=== PATIENT | female | born 1945 | race Caucasian/White ===

== ENCOUNTER → 2018-02-15 16:21 | Outpatient (CLI) | payer MEDICARE, SELFPAY ==
--- NOTE | 2018-02-15 17:03 | RAD_ITS ---
STUDY: X-RAY - LUMBAR SPINE REASON FOR EXAM: Female, 73 years old. Back pain TECHNIQUE: 3 view(s) of the lumbar spine were obtained. COMPARISON: None FINDINGS: Normal lumbar lordosis. There is no substantial scoliosis. There is a normal alignment of the vertebrae. There is bilateral facet arthropathy. There is multilevel endplate spondylosis of the lumbar vertebrae. There is multi-level degenerative disc disease with multi-level disc space narrowing. There are atherosclerotic vascular calcifications. The soft tissue structures are unremarkable. RAD/Lumbar Spine 2 or 3 Views IMPRESSION: Degenerative changes of the spine, as detailed above. Electronically Signed: Andrés De La Torre MD at 18:30 EDT , Service support ,
--- NOTE | 2018-02-15 17:03 | RAD_ITS ---
STUDY: X-RAY - THORACIC SPINE REASON FOR EXAM: Female, 73 years old. Back pain TECHNIQUE: 4 view(s) of the thoracic spine were obtained. COMPARISON: None. FINDINGS: Normal kyphosis of the thoracic spine. There is no substantial scoliosis. There is multilevel endplate spondylosis of the thoracic vertebrae. There is multilevel disc space narrowing of the thoracic spine. The soft tissue structures are unremarkable. RAD/Thoracic Spine 2 Views IMPRESSION: There are degenerative changes as noted above. Electronically Signed: Andrés De La Torre MD at 18:29 EDT , Service support ,
[2018-02-15 17:04] LABS: Absolute Lymphocyte Count 3.92 X10^3/ul (0.83-4.51); Absolute Neutrophil Count 3.3 X10^3/uL (2.0-7.7); Basophil# 0.05 X10^3/uL; Basophil% 0.6 % (0-1); Eosinophil# 0.25 X10^3/uL; Eosinophils% 3.1 % (0-5); Hematocrit 37.3 % (37-47); Hemoglobin 12.6 g/dl (12.0-15.0); Lymphocyte # 3.92 X10^3/ul (4.0); Lymphocyte % 48.3 % (19-41); Mean Corp Hgb Conc 33.8 g/gl (32-36); Mean Corpuscular Hgb 31.3 pg (27.0-32.0); Mean Corpuscular Volume 92.8 fL (81-99); Mean Platelet Vol. 10.1 fl (6.2-12.0); Monocyte# 0.58 X10^3/uL; Monocyte% 7.1 % (0-10); Neutrophil % 40.7 % (47-70); Platelet Count 246 K/mm3 (150-450); RBC Distribution Width SD 43.2 fl (35.1-43.9); Red Blood Count 4.02 M/mm3 (4.2-5.4); White Blood Count 8.1 K/mm3 (4.4-11.0)
[2018-02-15 17:10] LABS: POSITIVE COUNT NO; POSITIVE DIFFERENTIAL NO; POSITIVE MORPHOLOGY NO
[2018-02-15 17:34] LABS: ALB/GLOB Ratio 0.9 RATIO (0.9-2.4); AST(SGOT) 21 U/L (15-37); Alanine Aminotransfer ALT/SGPT 23 U/L (13-56); Albumin, Serum 3.8 g/dL (3.2-5.0); Alkaline Phosphatase 53 U/L (45-117); Anion Gap 7 (5-15); BUN 33 mg/dL (7-18); BUN/Creat Ratio 30.3 RATIO (10-20); Calcium,Total 9.5 mg/dL (8.5-10.1); Chloride 105 mmol/L (98-107); Creatinine, Serum 1.09 mg/dL (0.55-1.02); EST Glomerular Filtration Rate 52 mL/min (>60); Est Glom Filt Rate - Afr Amer 63 mL/min (>60); Globulin 4.3 g/dL (2.2-4.2); Glucose 100 mg/dL (74-106); Potassium 4.2 mmol/L (3.5-5.1); Protein, Total 8.1 g/dL (6.4-8.2); Sodium Level 137 mmol/L (136-145); Thyroid Stim Hormone (TSH) 2.42 uIU/mL (0.358-3.74)
[2018-02-16 10:03] LABS: Vitamin D,25 Hydroxy 16.9 ng/mL (29.95-100.01)
== END ==
PROVIDERS: Family Provider Family Medicine Geriatric Medicine; PCP Family Medicine Geriatric Medicine; Visit Provider Family Medicine Geriatric Medicine
DX: R53.83 Other fatigue (principal); E55.9 Vitamin D deficiency, unspecified; M48.061 Spinal stenosis, lumbar region without neurogenic claudication; M54.6 Pain in thoracic spine
CPT/HCPCS: 36415; 72070; 72100; 80053; 82306; 84443; 85025

== ENCOUNTER 2018-04-04 08:02 | Day surgery (SDC) | payer MEDICARE, SELFPAY ==
[2018-04-04 08:27] VITALS: BP 131/55; PULSE 72; RESP 14; TEMP 36.8; O2SAT 95; BMI 43.9
[2018-04-04 09:15] VITALS: BP 131/55; BP 98/43; PULSE 64; RESP 18; TEMP 36.8; O2SAT 98
--- NOTE | 2018-04-04 09:15 | COLBX_PTH ---
PATIENT: MAHAMED SHANKS LOC: EN U#:[id number] AGE/SX: 73/F ROOM: RE04/04/[address]: Dr. Linda Mendes MD : 1945 BED: DIS: 04/04/2018 SPEC #: [id number] RECD: 04/04/18 11:47 STATUS: MAGUI REA #: [id number] JUNITO: 04/04/18 09:[address]: Linda Mendes DEPT: SURGICAL PATHOLOGY RECD BY: Sree Grajeda ENTERED: 04/04/18 13:06 SP TYPE: COLON BX OTHR DR: Dr. Steve Falcon MD Tissues: Sigmoid colon biopsy Procedures: Trichrome (control) Special Stain Group II Surgery Specimen Level IV HEADER OPERATION: Colonoscopy PRE-OP DIAGNOSIS: Screening TISSUE SUBMITTED: Sigmoid polyp biopsy MICROSCOPIC DIAGNOSIS Sigmoid polyp, biopsy: Fragments of colonic mucosa with focal changes consistent with collagenous colitis. Negative for adenomatous changes. See comment. SJ:marian 04/05/18 COMMENT Trichrome stain with matched control was used in the evaluation of this specimen and shows focal thickening of subepithelial collagen band. Case has been reviewed in consultation with Dr. Garcia who concurs with the above diagnosis. IDC:AM MICROSCOPIC DESCRIPTION Slides are reviewed. GROSS DESCRIPTION Received in fixative is one container labeled with the patient's name and designated sigmoid colon polyp. The specimen consists of multiple irregular fragments of light campa soft tissue that in aggregate measure 1 x 0.3 x 0.1 cm. The specimen is totally submitted in one cassette. / GUSTAVO:marian 04/04/18 TC:5 CPT: 49569, 93126
--- NOTE | 2018-04-04 09:18 | OP.PCM_ITS ---
Report of Operation Date of Procedure: 04/04/18 Pre-Operative Diagnosis: Screening for colon cancer, history of polyps, positive family history father at age 92, son at age 55 Post-Operative Diagnosis: Moderate sigmoid diverticulosis, sigmoid sessile polyp , grade 1 internal hemorrhoid Surgery/Procedure Performed:: Colonoscopy with biopsy Type of Anesthesia:: MAC Anesthesiologist: Nacho Moffett Specimen's removed: 1 sigmoid colon polyp Estimated Blood Loss (mL): Minimal Description of Procedure: Procedure: Colonoscopy After reviewing the risks benefits, the patient was deemed in satisfactory condition to undergo procedure. After obtaining informed consent, the scope was passed under direct visualization. Throughout the procedure, the patient's blood pressure pulse and position saturations were monitored continuously anesthesia. The colonoscope was introduced through the anus and advanced to the cecum, identified by the appendiceal orifice, IC valve and transillumination. The colonoscopy was performed without difficulty. The patient tolerated procedure well. Quality of bowel prep was good. Findings: The perianal and digital rectal exam revealed mild internal hemorrhoid There is a small sessile sigmoid colon polyp removed with cold forceps biopsies. There is also moderate diverticulosis of the sigmoid colon. Otherwise the colon (entire examined portion) appeared normal. Retroflexed view of the distal rectum and anal verge grade 1 internal hemorrhoids Impression: 1. Sessile sigmoid colon polyp. Removed completely 2. Diverticulosis of the sigmoid colon moderate 3. Grade 1 internal hemorrhoids Recommendations: Repeat colonoscopy in 3-5 years for screening purposes depending on biopsy - Complications none
[2018-04-04 09:20] VITALS: BP 131/55; BP 78/62; PULSE 59; RESP 18; O2SAT 97
[2018-04-04 09:25] VITALS: BP 115/58; BP 131/55; PULSE 61; RESP 18; O2SAT 97
[2018-04-04 09:30] VITALS: BP 110/62; BP 131/55; PULSE 60; RESP 18; TEMP 36.7; O2SAT 98
[2018-04-04 09:54] VITALS: BP 131/55
== END 2018-04-04 09:55 | disposition home or self-care (01) ==
LOC: EN 08:03 → AC 08:04
PROVIDERS: Family Provider Family Medicine Geriatric Medicine; PCP Family Medicine Geriatric Medicine; Visit Provider Surgery
PROC: 0DJD8ZZ Inspection of Lower Intestinal Tract, Via Natural or Artificial Opening Endoscopic (ICD-10-PCS; CPT 45378; principal; 2018-04-04 09:10)
DX: Z12.11 Encounter for screening for malignant neoplasm of colon (principal); K63.5 Polyp of colon; K57.30 Diverticulosis of large intestine without perforation or abscess without bleeding; K64.8 Other hemorrhoids; I10 Essential (primary) hypertension; Z78.0 Asymptomatic menopausal state; Z86.010 Personal history of colon polyps; Z84.89 Family history of other specified conditions
CPT/HCPCS: 45380; 88305; 88313; J7120

== ENCOUNTER → 2018-08-17 10:15 | Outpatient (CLI) | payer MEDICARE, SELFPAY ==
[2018-08-17 12:26] LABS: Absolute Lymphocyte Count 2.95 X10^3/ul (0.83-4.51); Absolute Neutrophil Count 3.6 X10^3/uL (2.0-7.7); Basophil# 0.05 X10^3/uL; Basophil% 0.7 % (0-1); Eosinophils% 2.7 % (0-5); Hematocrit 38.9 % (37-47); Hemoglobin 12.7 g/dl (12.0-15.0); Lymphocyte # 2.95 X10^3/ul (4.0); Lymphocyte % 39.1 % (19-41); Mean Corp Hgb Conc 32.6 g/gl (32-36); Mean Corpuscular Hgb 30.5 pg (27.0-32.0); Mean Corpuscular Volume 93.5 fL (81-99); Mean Platelet Vol. 10.4 fl (6.2-12.0); Monocyte# 0.75 X10^3/uL; Monocyte% 9.9 % (0-10); Neutrophil # 3.58 X10^3/uL (2.7-7.7); Neutrophil % 47.5 % (47-70); POSITIVE COUNT NO; POSITIVE DIFFERENTIAL NO; POSITIVE MORPHOLOGY NO; Platelet Count 268 K/mm3 (150-450); RBC Distribution Width CV 13.2 % (11.6-14.6); RBC Distribution Width SD 44.9 fl (35.1-43.9); Red Blood Count 4.16 M/mm3 (4.2-5.4); White Blood Count 7.5 K/mm3 (4.4-11.0)
[2018-08-17 12:44] LABS: Vitamin D,25 Hydroxy 29.2 ng/mL (29.95-100.01)
[2018-08-17 12:50] LABS: ALB/GLOB Ratio 0.9 RATIO (0.9-2.4); AST(SGOT) 19 U/L (15-37); Alanine Aminotransfer ALT/SGPT 27 U/L (13-56); Albumin, Serum 3.8 g/dL (3.2-5.0); Alkaline Phosphatase 64 U/L (45-117); Anion Gap 11 (5-15); BUN 28 mg/dL (7-18); BUN/Creat Ratio 25.9 RATIO (10-20); Calcium,Total 9.3 mg/dL (8.5-10.1); Chloride 105 mmol/L (98-107); Cholesterol 216 mg/dL (200); Creatinine, Serum 1.08 mg/dL (0.55-1.02); EST Glomerular Filtration Rate 53 mL/min (>60); Est Glom Filt Rate - Afr Amer 64 mL/min (>60); Globulin 4.3 g/dL (2.2-4.2); Glucose 95 mg/dL (74-106); High Density Lipoprotein 61 mg/dL; Potassium 4.2 mmol/L (3.5-5.1); Protein, Total 8.1 g/dL (6.4-8.2); Sodium Level 140 mmol/L (136-145); Triglycerides 85 mg/dL; Very Low Density Lipoprotein 17 mg/dL (5-40)
== END ==
PROVIDERS: Family Provider Family Medicine Geriatric Medicine; PCP Family Medicine Geriatric Medicine; Visit Provider Family Medicine Geriatric Medicine
DX: I10 Essential (primary) hypertension (principal); E78.49 Other hyperlipidemia; E55.9 Vitamin D deficiency, unspecified
CPT/HCPCS: 36415; 80053; 80061; 82306; 84443; 85025

== ENCOUNTER → 2018-11-22 12:10 | Outpatient (CLI) | payer MEDICARE, SELFPAY ==
--- NOTE | 2018-11-22 12:12 | BI_ITS ---
MAMMOGRAPHY - BILATERAL SCREENING REASON FOR EXAM: Female, 73 years old. Routine annual screening examination. PERTINENT HISTORY: Grandmother with breast cancer. Remote left breast biopsies. TECHNIQUE: Digital bilateral breast yolanda (3D mammographic acquisition) in the CC and MLO projections. 2-D mediolateral oblique (MLO) and craniocaudad (CC) views of both breasts were obtained. CAD: Full Field Digital Mammography with Computer Added Detection was performed. COMPARISON: Comparison is made with prior mammogram dated November 07, 2012. FINDINGS: Breast Composition: There are scattered areas of fibroglandular density. There are no dominant masses or suspicious calcifications. 2 tissue markers are seen in the upper outer quadrant of the left breast and compared with prior biopsy. No new mass lesion is seen. No other significant abnormalities are identified. There has been no significant change since the prior study. BI/SCREENING MAMM (CAD), BILAT IMPRESSION: Stable bilateral screening mammogram. Yearly follow-up mammogram recommended. (A) ASSESSMENT CATEGORY: BIRADS Category 2: Benign. A letter regarding these results will be sent to the patient by the facility within 30 days. Approximately 10% of breast cancers are not detected by mammography. A normal mammogram should not delay biopsy of a clinically suspicious abnormality. [id number] Electronically Signed: Jonny Juan, at 14:47 EDT , Service support ,
--- NOTE | 2018-11-22 12:18 | BD_ITS ---
STUDY: DUAL ENERGY X-RAY ABSORPTIOMETRY / DXA REASON FOR EXAM: Female, 73 years old. The patient is postmenopausal. Loss of height. TECHNIQUE: Bone Mineral Density (BMD) measurements of lumbar spine and bilateral hips were obtained. COMPARISON: None. FINDINGS: Lumbar Spine (L1-L4): g/cm2 (2.003) / T-score (7.0) / Z-score (8.7) Findings are suggestive of normal bone density with a low fracture risk. Left Femur Total: g/cm2 (1.206) / T-score (1.6) / Z-score (3.3) Left Femoral Neck: g/cm2 (1.045) / T-score (0.1) / Z-score (2.0) Right Femur Total: g/cm2 (1.212) / T-score (1.6) / Z-score (3.4) Right Femoral Neck: g/cm2 (1.145) / T-score (0.8) / Z-score (2.7) BD/Dexa Bone Density Study IMPRESSION: The patient is considered normal as outlined below according to World [employer] Organization (WHO) criteria with a low fracture risk. Reference Information: The T-score is the number of standard deviations above or below the standard which is normal for young adults at their peak bone mineral density. The World Health Organization (WHO) interprets the T-scores as follows: Above -1 Normal bone density Between -1 and -2.5 Osteopenia Equal to / or below -2.5 Osteoporosis As a practical clinical guideline, osteopenia may be graded as follows: Mild -1 through -1.5 Moderate -1.6 through -2.0 Severe -2.1 through -2.4 The Z-score is the number of standard deviations above or below age-matched controls. A Z-score of less than -1.5 would be considered abnormal. References: 1. NIH Osteoporosis and Related Bone Diseases http://www.osteo.org 2. International Society for Clinical Densitometry http://www.iscd.org 3. National Osteoporosis Foundation http://www.nof.org Electronically Signed: Jonny Juan, at 12:18 EDT , Service support ,
== END ==
PROVIDERS: Family Provider Family Medicine Geriatric Medicine; PCP Family Medicine Geriatric Medicine; Referring Provider Obstetrics & Gynecology; Visit Provider Obstetrics & Gynecology
DX: Z12.31 Encounter for screening mammogram for malignant neoplasm of breast (principal); Z78.0 Asymptomatic menopausal state; Z80.3 Family history of malignant neoplasm of breast
CPT/HCPCS: 77063; 77067; 77080

== ENCOUNTER → 2019-02-19 10:53 | Outpatient (CLI) | payer MEDICARE, SELFPAY ==
[2018-05-24 12:27] VITALS: BMI 43.8
[2019-02-19 12:43] LABS: Absolute Lymphocyte Count 3.21 X10^3/ul (0.83-4.51); Absolute Neutrophil Count 3.7 X10^3/uL (2.0-7.7); Basophil# 0.05 X10^3/uL; Basophil% 0.6 % (0-1); Eosinophil# 0.33 X10^3/uL; Eosinophils% 4.2 % (0-5); Hematocrit 35.6 % (37-47); Hemoglobin 11.9 g/dl (12.0-15.0); Lymphocyte # 3.21 X10^3/ul (4.0); Lymphocyte % 40.6 % (19-41); Mean Corp Hgb Conc 33.4 g/gl (32-36); Mean Corpuscular Hgb 30.4 pg (27.0-32.0); Mean Corpuscular Volume 90.8 fL (81-99); Monocyte# 0.58 X10^3/uL; Monocyte% 7.3 % (0-10); Neutrophil # 3.73 X10^3/uL (2.7-7.7); Neutrophil % 47.2 % (47-70); Platelet Count 263 K/mm3 (150-450); RBC Distribution Width CV 13.7 % (11.6-14.6); RBC Distribution Width SD 44.9 fl (35.1-43.9); Red Blood Count 3.92 M/mm3 (4.2-5.4); White Blood Count 7.9 K/mm3 (4.4-11.0)
[2019-02-19 12:45] LABS: POSITIVE COUNT NO; POSITIVE DIFFERENTIAL NO; POSITIVE MORPHOLOGY NO
[2019-02-19 13:01] LABS: Vitamin D,25 Hydroxy 26.2 ng/mL (29.95-100.01)
[2019-02-19 13:07] LABS: AST(SGOT) 20 U/L (15-37); Alanine Aminotransfer ALT/SGPT 28 U/L (13-56); Albumin, Serum 3.9 g/dL (3.2-5.0); Alkaline Phosphatase 67 U/L (45-117); Anion Gap 14 (5-15); BUN 44 mg/dL (7-18); BUN/Creat Ratio 38.6 RATIO (10-20); Calcium,Total 9.2 mg/dL (8.5-10.1); Chloride 105 mmol/L (98-107); Cholesterol 200 mg/dL (200); Creatinine, Serum 1.14 mg/dL (0.55-1.02); EST Glomerular Filtration Rate 49 mL/min (>60); Est Glom Filt Rate - Afr Amer 60 mL/min (>60); Globulin 4.1 g/dL (2.2-4.2); Glucose 110 mg/dL (74-106); High Density Lipoprotein 59 mg/dL; Potassium 4.3 mmol/L (3.5-5.1); Sodium Level 138 mmol/L (136-145); Thyroid Stim Hormone (TSH) 2.18 uIU/mL (0.358-3.74); Triglycerides 68 mg/dL; Very Low Density Lipoprotein 14 mg/dL (5-40)
== END ==
PROVIDERS: Family Provider Family Medicine Geriatric Medicine; PCP Family Medicine Geriatric Medicine; Visit Provider Family Medicine Geriatric Medicine
DX: I10 Essential (primary) hypertension (principal); E55.9 Vitamin D deficiency, unspecified; E78.5 Hyperlipidemia, unspecified
CPT/HCPCS: 36415; 80053; 80061; 82306; 84443; 85025

== ENCOUNTER → 2019-02-26 13:24 | Outpatient (CLI) | payer MEDICARE, SELFPAY ==
[2018-05-24 12:27] VITALS: BMI 43.8
--- NOTE | 2019-02-26 | LES_PTH ---
PATIENT: MAHAMED SHANKS LOC: [facility] U#:[id number] AGE/SX: 80/F ROOM: RE02/26/[address]: Dr. Steve Falcon MD : 1945 BED: DIS: SPEC #: [id number] RECD: 02/26/19 17:03 STATUS: MAGUI REA #: [id number] JUNITO: 02/26/19 00:[address]: Steve Falcon Chi DEPT: SURGICAL PATHOLOGY RECD BY: Preet Tyson Tissues: Skin of back, NOS Procedures: Surgery Specimen Level IV HEADER OPERATION: Not noted PRE-OP DIAGNOSIS: Lesion mid back TISSUE SUBMITTED: Lesion mid back MICROSCOPIC DIAGNOSIS Skin lesion of mid back, shave biopsy: Seborrheic keratosis with actinic change and mild chronic inflammation. See comment. AM:marian 03/01/19 COMMENT The lesion appears to have been completely excised in the planes examined. MICROSCOPIC DESCRIPTION Slides are reviewed. GROSS DESCRIPTION Received in fixative is one container labeled with the patient's name and designated mid back. The specimen consists of an irregular piece of campa-white to light brown skin measuring 1.5 x 0.7 x 0.2 cm. The specimen is inked and submitted entirely in one cassette. It will be sectioned at the time of embedding. / SJ:rg 02/27/19 TC:5 [facility]: [id number]
== END ==
PROVIDERS: Family Provider Family Medicine Geriatric Medicine; PCP Family Medicine Geriatric Medicine; Referring Provider Family Medicine Geriatric Medicine; Visit Provider Family Medicine Geriatric Medicine
DX: L98.9 Disorder of the skin and subcutaneous tissue, unspecified (principal)
CPT/HCPCS: 88305

== ENCOUNTER 2019-04-17 19:14 | Emergency (ER) | payer MEDICARE, SELFPAY ==
[2019-04-17 19:16] VITALS: BP 164/77; PULSE 65; RESP 17; TEMP 36.1; O2SAT 95; BMI 45.1
--- NOTE | 2019-04-17 19:35 | EKG12_ITS ---
Test Reason : DIZZINESS Blood Pressure : / mmHG Vent. Rate : 057 BPM Atrial Rate : 057 BPM P-R Int : 226 ms QRS Dur : 094 ms QT Int : 418 ms P-R-T Axes : 044 012 029 degrees QTc Int : 406 ms Sinus bradycardia with 1st degree A-V block Low voltage QRS Cannot rule out Anterior infarct (cited on or before 02-MAR-2001) Abnormal ECG Confirmed by AGATA RO ([id number]), electronic news gathering editor OMKAR MAIN ([id number]) on 04/22/2019 2:02:43 PM Referred By: QUETA Confirmed By:AGATA RO
--- NOTE | 2019-04-17 19:35 | CT_ITS ---
STUDY: CT BRAIN WITHOUT CONTRAST REASON FOR EXAM: Female, 74 years old. Vertigo RADIATION DOSAGE (If Supplied By Facility): CTDIvol = ( 44.99 ) mGy, DLP = ( 779.24 ) mGycm TECHNIQUE: Transaxial CT imaging of the brain was performed without administration of intravenous contrast material. Individualized dose optimization techniques were used for this CT. COMPARISON: No relevant priors. FINDINGS: Normal soft tissue structures. Normal calvarium. Bilateral lens replacements. Normal size ventricles and extra-axial spaces for the patient's age. There are areas of decreased attenuation within the white matter tracts of the supratentorial brain, consistent with microvascular disease changes. Normal age-related changes of the basal ganglia. Normal brainstem. Normal cerebellum. There is no intracranial hemorrhage. There are no findings of an acute ischemic infarction. Normal visualized paranasal sinuses. CT/Brain/Head without Contrast IMPRESSION: No CT evidence of acute infarct or hemorrhage. If there is clinical concern for hyperacute ischemia that is not evident by CT, MRI should be considered if possible. Electronically Signed: Chano Cedillo MD at 20:12 EDT Tel , Service support ,
[2019-04-17] MEDS: Meclizine HCl 25 MG Tablet PO (19:47)
[2019-04-17 19:51] LABS: Absolute Neutrophil Count 4.5 X10^3/uL (2.0-7.7); Basophil# 0.07 X10^3/uL; Basophil% 0.7 % (0-1); Eosinophil# 0.39 X10^3/uL; Eosinophils% 3.8 % (0-5); Hematocrit 36.3 % (37-47); Lymphocyte % 42.8 % (19-41); Mean Corp Hgb Conc 33.1 g/dL (32-36); Mean Corpuscular Hgb 30.9 pg (27.0-32.0); Mean Corpuscular Volume 93.6 fL (81-99); Mean Platelet Vol. 9.8 fl (6.2-12.0); Monocyte# 0.92 X10^3/uL; Monocyte% 8.9 % (0-10); NRBC Flagged by Analyzer 0 % (0-5); Neutrophil # 4.48 X10^3/uL (2.7-7.7); Neutrophil % 43.5 % (47-70); Platelet Count 256 K/mm3 (150-450); RBC Distribution Width CV 13.2 % (11.6-14.6); RBC Distribution Width SD 45.2 fl (35.1-43.9); Red Blood Count 3.88 M/mm3 (4.2-5.4); White Blood Count 10.3 K/mm3 (4.4-11.0)
[2019-04-17 20:05] LABS: Anion Gap 6 (5-15); BUN 33 mg/dL (7-18); BUN/Creat Ratio 28.7 RATIO (10-20); Calcium,Total 9.2 mg/dL (8.5-10.1); Chloride 107 mmol/L (98-107); Creatinine, Serum 1.15 mg/dL (0.55-1.02); EST Glomerular Filtration Rate 49 mL/min (>60); Est Glom Filt Rate - Afr Amer 59 mL/min (>60); Glucose 98 mg/dL (74-106); Potassium 4.3 mmol/L (3.5-5.1); Sodium Level 139 mmol/L (136-145)
--- NOTE | 2019-04-17 20:26 | ED.DCSUM_ITS ---
History of Present Illness Chief Complaint: Dizziness Past Medical History - Allergies and Home Meds Allergies/Adverse Reactions: Allergies latex Allergy (Verified 04/17/19 19:15) Hives Primary Care Physician: Steve Falcon Chi, MD [Primary Care Provider] - Smoking Status: Never smoker Physical Exam Vital Signs/Narrative: Vital Signs Temp Pulse Resp BP Pulse Ox 04/17/19 19:16 97 F L 65 17 164/77 H 95 Diagnostic/Tx/Re-eval - Medical Decision Making Dizziness with a history of vertigo. I am evaluating this patient with the resident. Patient complaint room spinning dizziness with a history of vertigo last episode was 13 years ago. She denies any headache. No other symptoms. Worse with head movement or trying to ambulate. Similar to her prior episodes. Older female no acute distress. Vital signs are stable afebrile. HEENT exam she is legally blind. No facial droop. Normal speech. Neck nontender. Lungs clear to auscultation. Heart regular rhythm no murmur. Abdomen soft and nontender. Moving all 4 extremities. Neurovascular intact. She is awake and alert. Normal speech. No facial droop. She does have a positive Hallpike with rotation of the head the left and her right she gets worsening symptoms. Screening labs and CT of her brain showed no benign positional vertigo a bnormality. Patient treated with Antivert. Symptoms persisted she was then given p.o. Valium and will be reassessed. Impression: #1 acute vertigo ED Disposition - Plan for ED Patient: Referrals: Steve Falcon Chi, MD [Primary Care Provider] -
[2019-04-17] MEDS: diazePAM 5 MG Tablet PO (20:29)
[2019-04-17 21:43] VITALS: BP 143/71; PULSE 61; RESP 18; O2SAT 99
--- NOTE | 2019-04-17 21:46 | ED.VISSUMM ---
ED Disposition - Plan for ED Patient: Disposition: Home or Assisted Living Diagnosis: Vertigo Instructions: Benign Positional Vertigo Prescriptions: Diazepam [Valium] 5 mg PO Q8H PRN PRN 5 Days #15 tab PRN Reason: Vertigo Prescription Printed Referrals: Steve Falcon Chi, MD [Primary Care Provider] -
== END 2019-04-17 21:56 | disposition home or self-care (01) ==
PROVIDERS: Emergency Provider Emergency Medicine; Family Provider Family Medicine Geriatric Medicine; PCP Family Medicine Geriatric Medicine
DX: H81.399 Other peripheral vertigo, unspecified ear (principal); H35.30 Unspecified macular degeneration; H54.8 Legal blindness, as defined in USA; I44.0 Atrioventricular block, first degree; Z91.040 Latex allergy status; Z79.899 Other long term (current) drug therapy
CPT/HCPCS: 70450; 80048; 85025; 93005; 99283; A4216

== ENCOUNTER → 2019-09-02 11:26 | Outpatient (CLI) | payer MEDICARE, SELFPAY ==
[2019-09-02 12:43] LABS: Absolute Lymphocyte Count 3.23 X10^3/uL (0.83-4.51); Absolute Neutrophil Count 4.1 X10^3/uL (2.0-7.7); Basophil# 0.06 X10^3/uL; Basophil% 0.7 % (0-1); Eosinophil# 0.21 X10^3/uL; Eosinophils% 2.5 % (0-5); Hematocrit 37.8 % (37-47); Hemoglobin 12.3 g/dL (12.0-15.0); Lymphocyte # 3.23 X10^3/ul (4.0); Lymphocyte % 39.2 % (19-41); Mean Corp Hgb Conc 32.5 g/dL (32-36); Mean Corpuscular Hgb 30.7 pg (27.0-32.0); Mean Corpuscular Volume 94.3 fL (81-99); Mean Platelet Vol. 10.5 fl (6.2-12.0); Monocyte# 0.65 X10^3/uL; Monocyte% 7.9 % (0-10); NRBC Flagged by Analyzer 0 % (0-5); Neutrophil # 4.06 X10^3/uL (2.7-7.7); Neutrophil % 49.3 % (47-70); Platelet Count 278 K/mm3 (150-450); RBC Distribution Width CV 13.2 % (11.6-14.6); RBC Distribution Width SD 45.8 fl (35.1-43.9); Red Blood Count 4.01 M/mm3 (4.2-5.4); White Blood Count 8.2 K/mm3 (4.4-11.0)
[2019-09-02 13:02] LABS: AST(SGOT) 21 U/L (15-37); Alanine Aminotransfer ALT/SGPT 27 U/L (13-56); Albumin, Serum 3.9 g/dL (3.2-5.0); Alkaline Phosphatase 67 U/L (45-117); Anion Gap 6 (5-15); BUN 34 mg/dL (7-18); BUN/Creat Ratio 30.6 RATIO (10-20); Chloride 108 mmol/L (98-107); Cholesterol 227 mg/dL (200); Creatinine, Serum 1.11 mg/dL (0.55-1.02); EST Glomerular Filtration Rate 51 mL/min (>60); Est Glom Filt Rate - Afr Amer 61 mL/min (>60); Glucose 115 mg/dL (74-106); High Density Lipoprotein 56 mg/dL; Potassium 4.4 mmol/L (3.5-5.1); Protein, Total 7.9 g/dL (6.4-8.2); Sodium Level 138 mmol/L (136-145); Thyroid Stim Hormone (TSH) 3.57 uIU/mL (0.358-3.74); Triglycerides 92 mg/dL; Very Low Density Lipoprotein 18 mg/dL (5-40)
[2019-09-02 13:05] LABS: Vitamin D,25 Hydroxy 35.7 ng/mL (29.95-100.01)
== END ==
PROVIDERS: Family Provider Family Medicine Geriatric Medicine; PCP Family Medicine Geriatric Medicine; Visit Provider Family Medicine Geriatric Medicine
DX: E55.9 Vitamin D deficiency, unspecified (principal); E78.5 Hyperlipidemia, unspecified; I10 Essential (primary) hypertension
CPT/HCPCS: 36415; 80053; 80061; 82306; 84443; 85025

== ENCOUNTER → 2019-09-18 10:35 | Outpatient (CLI) | payer MEDICARE, SELFPAY ==
--- NOTE | 2019-09-18 10:40 | RAD_ITS ---
STUDY: X-RAY - LEFT SHOULDER REASON FOR EXAM: Left shoulder pain, fall yesterday. TECHNIQUE: 4 view(s) of the shoulder. COMPARISON: None. FINDINGS: There are marginal osteophytes of the glenoid. The glenohumeral articulation appears centered on the scapular Y view. There is acromioclavicular arthrosis with undersurface osteophytes. Normal acromion. Normal humeral head and visualized proximal humerus. There are calcifications at the superior aspect of the humeral head, likely representing calcific tendinitis or calcific bursitis. Normal visualized pulmonary apex. RAD/Shoulder min 2 Views IMPRESSION: Calcifications of the superior aspect of the humeral head, likely representing calcific tendinitis or calcific bursitis. Acromioclavicular arthrosis. No demonstrated fracture. Electronically Signed: Bhanu Tejada MD at 15:51 EST Tel , Service support ,
--- NOTE | 2019-09-18 10:41 | RAD_ITS ---
STUDY: X-RAY - LEFT CLAVICLE REASON FOR EXAM: Left shoulder pain, fall yesterday. TECHNIQUE: 2 view(s) of the clavicle. COMPARISON: None. FINDINGS: Normal clavicle. There is arthrosis of the acromioclavicular articulation with undersurface osteophytes. Normal visualized sternoclavicular articulation. Normal visualized pulmonary apex. RAD/Clavicle IMPRESSION: Acromioclavicular arthrosis. No demonstrated clavicle fracture. Electronically Signed: Bhanu Tejada MD at 16:04 EST Tel , Service support ,
== END ==
PROVIDERS: PCP Family Medicine Geriatric Medicine; Referring Provider Family Medicine Geriatric Medicine; Visit Provider Family Medicine Geriatric Medicine
DX: M19.012 Primary osteoarthritis, left shoulder (principal)
CPT/HCPCS: 73000; 73030

== ENCOUNTER → 2020-03-19 10:07 | Outpatient (CLI) | payer MEDICARE, SELFPAY ==
[2020-03-19 09:54] VITALS: BMI 42.5
== END ==
PROVIDERS: PCP Family Medicine Geriatric Medicine; Referring Provider Chiropractor; Visit Provider Chiropractor
DX: M99.03 Segmental and somatic dysfunction of lumbar region (principal); M51.36 Other intervertebral disc degeneration, lumbar region
CPT/HCPCS: 72100

== ENCOUNTER → 2020-05-06 13:11 | Outpatient (CLI) | payer MEDICARE, SELFPAY ==
[2020-04-14 12:54] VITALS: BMI 43.6
--- NOTE | 2020-05-06 13:12 | BI_ITS ---
MAMMOGRAPHY - BILATERAL SCREENING REASON FOR EXAM: Female, 75 years old. Routine annual screening examination. PERTINENT HISTORY: Grandmother with breast cancer. TECHNIQUE: Digital bilateral breast bismark (3D mammographic acquisition) in the CC and MLO projections. 2-D mediolateral oblique (MLO) and craniocaudad (CC) views of both breasts were obtained. CAD: Full Field Digital Mammography with Computer Added Detection was performed. COMPARISON: Comparison is made with prior examination dated 11/22/2018 and 11/07/2012. FINDINGS: Breast Composition: There are scattered areas of fibroglandular density. There are no dominant masses or suspicious calcifications. Once again, there are 2 tissue markers in the axillary region of the left breast. Stable architectural distortion at that site. This is unchanged. No other significant abnormalities are identified. There has been no significant change since the prior study. BI/SCREEN MAMM (CAD) W/BISMARK BILAT IMPRESSION: Stable bilateral screening mammogram. Yearly follow-up mammogram recommended. (A) ASSESSMENT CATEGORY: BIRADS Category 2: Benign. A letter regarding these results will be sent to the patient by the facility within 30 days. Approximately 10% of breast cancers are not detected by mammography. A normal mammogram should not delay biopsy of a clinically suspicious abnormality. [id number] Electronically Signed: Jonny Juan, at 14:54 EDT , Service support ,
== END ==
PROVIDERS: PCP Family Medicine Geriatric Medicine; Referring Provider Nurse Practitioner Women's Health; Visit Provider Nurse Practitioner Women's Health
DX: Z12.31 Encounter for screening mammogram for malignant neoplasm of breast (principal)
CPT/HCPCS: 77063; 77067

== ENCOUNTER → 2020-09-10 11:47 | Outpatient (CLI) | payer MEDICARE, SELFPAY ==
[2020-04-14 12:54] VITALS: BMI 43.6
[2020-09-10 12:33] LABS: Absolute Lymphocyte Count 3.59 X10^3/uL (0.83-4.51); Absolute Neutrophil Count 5.2 X10^3/uL (2.0-7.7); Basophil# 0.07 X10^3/uL; Basophil% 0.7 % (0-1); Eosinophil# 0.18 X10^3/uL; Eosinophils% 1.9 % (0-5); Hematocrit 39.1 % (37-47); Hemoglobin 12.9 g/dL (12.0-15.0); Lymphocyte # 3.59 X10^3/ul (4.0); Mean Corpuscular Hgb 30.9 pg (27.0-32.0); Mean Corpuscular Volume 93.8 fL (81-99); Mean Platelet Vol. 10.3 fl (6.2-12.0); Monocyte# 0.65 X10^3/uL; Monocyte% 6.7 % (0-10); NRBC Flagged by Analyzer 0 % (0-5); Neutrophil # 5.18 X10^3/uL (2.7-7.7); Neutrophil % 53.4 % (47-70); Platelet Count 315 K/mm3 (150-450); RBC Distribution Width SD 44.6 fl (35.1-43.9); Red Blood Count 4.17 M/mm3 (4.2-5.4); White Blood Count 9.7 K/mm3 (4.4-11.0)
[2020-09-10 13:00] LABS: ALB/GLOB Ratio 0.9 RATIO (0.9-2.4); AST(SGOT) 21 U/L (15-37); Alanine Aminotransfer ALT/SGPT 29 U/L (13-56); Albumin, Serum 3.9 g/dL (3.2-5.0); Alkaline Phosphatase 74 U/L (45-117); Anion Gap 7 (5-15); BUN 26 mg/dL (7-18); BUN/Creat Ratio 23.9 RATIO (10-20); Calcium,Total 9.4 mg/dL (8.5-10.1); Chloride 105 mmol/L (98-107); Creatinine, Serum 1.09 mg/dL (0.55-1.02); EST Glomerular Filtration Rate 52 mL/min (>60); Est Glom Filt Rate - Afr Amer 63 mL/min (>60); Globulin 4.4 g/dL (2.2-4.2); Glucose 112 mg/dL (74-106); Potassium 4.6 mmol/L (3.5-5.1); Protein, Total 8.3 g/dL (6.4-8.2); Sodium Level 136 mmol/L (136-145); Thyroid Stim Hormone (TSH) 2.38 uIU/mL (0.358-3.74)
[2020-09-10 13:07] LABS: Vitamin D,25 Hydroxy 21.2 ng/mL
== END ==
PROVIDERS: PCP Family Medicine Geriatric Medicine; Visit Provider Family Medicine Geriatric Medicine
DX: I10 Essential (primary) hypertension (principal); E55.9 Vitamin D deficiency, unspecified
CPT/HCPCS: 36415; 80053; 82306; 84443; 85025

== ENCOUNTER 2020-10-29 11:00 | Outpatient (RCR) | payer MEDICARE, SELFPAY ==
[2020-04-14 12:54] VITALS: BMI 43.6
[2020-10-29] MEDS: COVID-19 VACC, MRNA(PFIZER)/PF 30 MCG/0.3 ML SYRINGE IM (08:46)
[2020-11-19] MEDS: COVID-19 VACC, MRNA(PFIZER)/PF 30 MCG/0.3 ML SYRINGE IM (08:22)
== END 2020-10-29 23:59 ==
LOC: IMMUN 11:00
PROVIDERS: PCP Family Medicine Geriatric Medicine; Referring Provider Family Medicine; Visit Provider Family Medicine
DX: Z23 Encounter for immunization (principal)
CPT/HCPCS: 0001A; 0002A

== ENCOUNTER → 2021-03-09 10:33 | Outpatient (CLI) | payer MEDICARE, SELFPAY ==
[2020-04-14 12:54] VITALS: BMI 43.6
[2021-03-09 12:36] LABS: Absolute Lymphocyte Count 3.93 X10^3/uL (0.83-4.51); Absolute Neutrophil Count 3.3 X10^3/uL (2.0-7.7); Basophil# 0.06 X10^3/uL; Basophil% 0.7 % (0-1); Eosinophil# 0.31 X10^3/uL; Eosinophils% 3.7 % (0-5); Hematocrit 37.8 % (37-47); Hemoglobin 12.4 g/dL (12.0-15.0); Lymphocyte # 3.93 X10^3/ul (0.83-4.51); Lymphocyte % 47.5 % (19-41); Mean Corp Hgb Conc 32.8 g/dL (32-36); Mean Corpuscular Hgb 31.2 pg (27.0-32.0); Mean Corpuscular Volume 95.2 fL (81-99); Mean Platelet Vol. 10.1 fl (6.2-12.0); Monocyte# 0.62 X10^3/uL; Monocyte% 7.5 % (0-10); NRBC Flagged by Analyzer 0 % (0-5); Neutrophil # 3.32 X10^3/uL (2.7-7.7); Neutrophil % 40.2 % (47-70); Platelet Count 308 K/mm3 (150-450); RBC Distribution Width CV 13.2 % (11.6-14.6); RBC Distribution Width SD 46.1 fl (35.1-43.9); Red Blood Count 3.97 M/mm3 (4.2-5.4); White Blood Count 8.3 K/mm3 (4.4-11.0)
[2021-03-09 13:06] LABS: Vitamin D,25 Hydroxy 30.6 ng/mL
[2021-03-09 14:15] LABS: AST(SGOT) 24 U/L (15-37); Alanine Aminotransfer ALT/SGPT 28 U/L (13-56); Alkaline Phosphatase 65 U/L (45-117); Anion Gap 8 (5-15); BUN 34 mg/dL (7-18); BUN/Creat Ratio 30.9 RATIO (10-20); Calcium,Total 9.8 mg/dL (8.5-10.1); Chloride 106 mmol/L (98-107); EST Glomerular Filtration Rate 51 mL/min (>60); Est Glom Filt Rate - Afr Amer 62 mL/min (>60); Globulin 4.2 g/dL (2.2-4.2); Glucose 102 mg/dL (74-106); Potassium 4.1 mmol/L (3.5-5.1); Protein, Total 8.2 g/dL (6.4-8.2); Sodium Level 137 mmol/L (136-145); Thyroid Stim Hormone (TSH) 2.51 uIU/mL (0.358-3.74)
== END ==
PROVIDERS: PCP Family Medicine Geriatric Medicine; Visit Provider Family Medicine Geriatric Medicine
DX: E55.9 Vitamin D deficiency, unspecified (principal); I10 Essential (primary) hypertension
CPT/HCPCS: 36415; 80053; 82306; 84443; 85025

== ENCOUNTER → 2021-03-16 | Outpatient (CLI) | payer MEDICARE, SELFPAY ==
[2020-04-14 12:54] VITALS: BMI 43.6
--- NOTE | 2021-03-16 | IMM_PTH ---
PATIENT: MAHAMED SHANKS LOC: [facility] U#:[id number] AGE/SX: 76/F ROOM: RE03/16/[address]: Dr. Steve Falcon MD : 1945 BED: DIS: 03/16/2021 SPEC #: [id number] RECD: 03/17/21 13:17 STATUS: MAGUI REQ #: [id number] JUNITO: 03/16/21 00:[address]: Steve Falcon Chi DEPT: IMMUNOHISTOCHEMISTRY RECD BY: Sera Garduno Tissues: B - Skin of arm Procedures: CK5-6 (initial) MELAN-A (add) P40 (add) S-100 (add) PHYSICIAN & INSTITUTION [place] [address] SPECIMEN INFORMATION: Tissue Source: B ? Right arm Clinical Info: Right arm lesion Specimen Number: [id number] CPT code: 01959, 57656 x3 METHODOLOGY: Deparaffinized sections of prefer/formalin-fixed tissue or PAP/DQ stained slides are incubated with monoclonal/polyclonal antibodies/oligonucleotide probes. Localization is made via biotin free immunoperoxidase method. Appropriate controls are performed and reacted as expected. Results on target cell population are indicated in the following table: RESULTS: ANTIBODY / CLONE RESULT Block B CK5-6 (D5 & 1684) positive P40 (BC28) positive S-100 (4C4.9) negative Melan A (A103) negative These tests were developed and their performance characteristics determined by [facility]. They may not have been cleared or approved by the U.S. Food and Drug Administration. The FDA has determined that such clearance or approval is not necessary. The above immunohistochemical/dualISH markers are ordered and reviewed by the Pathologist. INTERPRETATION: B. Skin of right arm, biopsy: Lichenoid dermal and interface chronic inflammation. Negative for malignancy. SJ:marian 03/18/2021
--- NOTE | 2021-03-16 | LES_PTH ---
PATIENT: MAHAMED SHANKS LOC: [facility] U#:[id number] AGE/SX: 76/F ROOM: RE03/16/[address]: Dr. Steve Falcon MD : 1945 BED: DIS: 03/16/2021 SPEC #: [id number] RECD: 03/16/21 13:05 STATUS: MAGUI RECayla #: [id number] JUNITO: 03/16/21 00:[address]: Steve Falcon Chi DEPT: SURGICAL PATHOLOGY RECD BY: Preet Tyson Tissues: A - Skin of arm B - Skin of arm C - Skin of back, NOS Procedures: Special Stain Group II Surgery Specimen Level IV Iron Stain (control) HEADER OPERATION: Skin biopsies PRE-OP DIAGNOSIS: Lesions TISSUE SUBMITTED: A ? Right arm, B ? Right arm, C - Back MICROSCOPIC DIAGNOSIS A. Right arm skin lesion, biopsy: Focal area of old hemorrhage, fibrosis and calcification. Solar elastosis. Negative for malignancy. See comment. B. Right arm skin lesion, biopsy: Dermal lichenoid and interface chronic inflammation. Mild actinic keratosis and solar elastosis. Hyperkeratosis. Negative for malignancy. See comment. C. Back lesion, biopsy: Intradermal nevus. SJ:rg 03/17/2021 COMMENT A. Iron stain with matched control is used in the evaluation of the specimen. B. Immunohistochemistry ([id number]) supports the above diagnosis. Special stain for fungi is negative for organism; matched control is appropriate. Inflammatory infiltrates predominantly consists of lymphocytes and a few eosinophils. Differential diagnosis includes non-specific chronic dermatitis, atopic dermatitis, or arthropod bile. Correlation with clinical findings and appropriate follow up are necessary. Case has been reviewed in consultation with Dr. Garcia who concurs with the above diagnosis. IDC:AM MICROSCOPIC DESCRIPTION Slides are reviewed. GROSS DESCRIPTION A - Received in fixative is one container labeled with the patient's name and designated right arm. The specimen consists of a piece of campa-white skin measuring 0.6 x 0.4 cm and 0.2 cm in thickness. A congested and hemorrhagic area is noted measuring 0.3 cm in greatest dimension. The specimen is inked and submitted entirely in one cassette. It will be sectioned at the time of embedding. B - Received in fixative is one container labeled with the patient's name and designated right arm. The specimen consists of a shave biopsy of campa-white skin measuring 0.9 x 0.9 x 0.1 cm. The specimen is inked and submitted entirely in one cassette. It will be sectioned at the time of embedding. C - Received in fixative is one container labeled with the patient's name and designated back. The specimen consists of a shave biopsy of campa-white skin measuring 1 x 0.5 x 0.1 cm. A campa lesion is noted on the surface measuring 0.5 x 0.5 cm. The specimen is inked and submitted entirely in one cassette. It will be sectioned at the time of embedding. / SJ:rg 03/16/21 TC:1 CPT: 05302 x3, 41778, 88301
== END | disposition home or self-care (01) ==
LOC: LABSPEC 11:33
PROVIDERS: PCP Family Medicine Geriatric Medicine; Visit Provider Family Medicine Geriatric Medicine
DX: D23.5 Other benign neoplasm of skin of trunk (principal); L57.8 Other skin changes due to chronic exposure to nonionizing radiation; L85.9 Epidermal thickening, unspecified
CPT/HCPCS: 88305; 88313; 88341; 88342

== ENCOUNTER → 2021-05-07 10:45 | Outpatient (CLI) | payer MEDICARE, SELFPAY ==
[2020-04-14 12:54] VITALS: BMI 43.6
--- NOTE | 2021-05-07 11:18 | BI_ITS ---
MAMMOGRAPHY - BILATERAL SCREENING REASON FOR EXAM: Female, 76 years old. Routine annual screening examination. PERTINENT HISTORY: Grandmother with breast cancer. TECHNIQUE: Digital bilateral breast bismark (3D mammographic acquisition) in the CC and MLO projections. 2-D mediolateral oblique (MLO) and craniocaudad (CC) views of both breasts were obtained. CAD: Full Field Digital Mammography with Computer Added Detection was performed. COMPARISON: Comparison is made with prior study dated 05/06/2020 and 11/22/2018. FINDINGS: Breast Composition: There are scattered areas of fibroglandular density. There are no dominant masses or suspicious calcifications. Once again, 2 tissue markers are seen in the axillary region of the left breast. Stable focal area of architectural distortion at the biopsy site. No other significant abnormalities are identified. There has been no significant change since the prior study. BI/SCRN MAMM (CAD)W/BISMARK BILAT IMPRESSION: Stable bilateral screening mammogram. Yearly follow-up mammogram recommended. (A) ASSESSMENT CATEGORY: BIRADS Category 2: Benign. A letter regarding these results will be sent to the patient by the facility within 30 days. Approximately 10% of breast cancers are not detected by mammography. A normal mammogram should not delay biopsy of a clinically suspicious abnormality. [id number] Electronically Signed: Jonny Juan MD at 12:25 EDT , Service support ,
== END ==
PROVIDERS: PCP Family Medicine Geriatric Medicine; Referring Provider Student in an Organized Health Care Education/Training Program; Visit Provider Student in an Organized Health Care Education/Training Program
DX: Z12.31 Encounter for screening mammogram for malignant neoplasm of breast (principal)
CPT/HCPCS: 77063; 77067

== ENCOUNTER 2021-10-12 15:56 | Outpatient (CLI) | payer MEDICARE, SELFPAY ==
[2021-10-12 16:22] LABS: Absolute Lymphocyte Count 3.22 X10^3/uL (0.83-4.51); Absolute Neutrophil Count 2.6 X10^3/uL (2.0-7.7); Basophil# 0.05 X10^3/uL; Basophil% 0.8 % (0-1); Eosinophil# 0.14 X10^3/uL; Eosinophils% 2.2 % (0-5); Hematocrit 36.4 % (37-47); Lymphocyte # 3.22 X10^3/ul (0.83-4.51); Lymphocyte % 49.9 % (19-41); Mean Corpuscular Hgb 31.3 pg (27.0-32.0); Mean Platelet Vol. 10.2 fl (6.2-12.0); Monocyte# 0.42 X10^3/uL; Monocyte% 6.5 % (0-10); NRBC Flagged by Analyzer 0 % (0-5); Neutrophil # 2.61 X10^3/uL (2.7-7.7); Neutrophil % 40.4 % (47-70); Platelet Count 237 K/mm3 (150-450); RBC Distribution Width CV 13.2 % (11.6-14.6); RBC Distribution Width SD 46.1 fl (35.1-43.9); Red Blood Count 3.83 M/mm3 (4.2-5.4); White Blood Count 6.5 K/mm3 (4.4-11.0)
[2021-10-12 16:43] LABS: Vitamin D,25 Hydroxy 32.1 ng/mL
[2021-10-12 16:51] LABS: ALB/GLOB Ratio 0.9 RATIO (0.9-2.4); AST(SGOT) 22 U/L (15-37); Alanine Aminotransfer ALT/SGPT 26 U/L (13-56); Albumin, Serum 3.9 g/dL (3.2-5.0); Alkaline Phosphatase 66 U/L (45-117); Anion Gap 6 (5-15); BUN 58 mg/dL (7-18); BUN/Creat Ratio 42.3 RATIO (10-20); Calcium,Total 9.7 mg/dL (8.5-10.1); Chloride 106 mmol/L (98-107); Creatinine, Serum 1.37 mg/dL (0.55-1.02); EST Glomerular Filtration Rate 40 mL/min (>60); Est Glom Filt Rate - Afr Amer 48 mL/min (>60); Globulin 4.2 g/dL (2.2-4.2); Glucose 101 mg/dL (74-106); Potassium 4.8 mmol/L (3.5-5.1); Protein, Total 8.1 g/dL (6.4-8.2); Sodium Level 135 mmol/L (136-145); Thyroid Stim Hormone (TSH) 3.62 uIU/mL (0.358-3.74)
== END 2021-10-12 23:59 | disposition home or self-care (01) ==
LOC: POLAB3 16:00
PROVIDERS: PCP Family Medicine Geriatric Medicine; Visit Provider Family Medicine Geriatric Medicine
DX: I10 Essential (primary) hypertension (principal); E55.9 Vitamin D deficiency, unspecified
CPT/HCPCS: 36415; 80053; 82306; 84443; 85025

== ENCOUNTER 2021-10-14 11:16 | Outpatient (CLI) | payer MEDICARE, SELFPAY | END 2021-10-14 23:59 | disposition home or self-care (01) | PROVIDERS: PCP Family Medicine Geriatric Medicine; Referring Provider Family Medicine Geriatric Medicine; Visit Provider Family Medicine Geriatric Medicine | DX: R68.83 Chills (without fever) (principal) | CPT/HCPCS: 87635; 87804; 87807; C9803; U0003; U0005 ==

== ENCOUNTER 2021-11-11 10:35 | Outpatient (CLI) | payer MEDICARE, SELFPAY ==
--- NOTE | 2021-11-11 10:39 | US_ITS ---
INDICATION: CKD 3 EXAMINATION: Ultrasound US Kidney(s) complete (eg, kidneys and bladder) TECHNIQUE: Dia scale and color doppler images were obtained of the kidneys. COMPARISON: None. FINDINGS: RIGHT KIDNEY: 9.3 x 6.2 x 4.3 cm and is within normal limits. Renal cortex measures 1.0 cm and is within normal limits. Duplicated right renal collecting system. Normal parenchyma. There is no hydronephrosis. No echogenic calculi. No cystic or solid masses. LEFT KIDNEY: 9.5 x 5.1 x 5.2 cm and is within normal limits. Renal cortex measures 0.9 cm and is within normal limits. Normal parenchyma. There is no hydronephrosis. No echogenic calculi. No cystic or solid masses. URINARY BLADDER: No acute abnormality. US/Kidney and Bladder IMPRESSION: Duplicated right renal collecting system. The remainder of the exam is unremarkable. Electronically Signed: Hakeem Beasley, at 11:52 EDT ,
== END 2021-11-11 23:59 | disposition home or self-care (01) ==
PROVIDERS: PCP Family Medicine Geriatric Medicine; Referring Provider Internal Medicine Nephrology; Visit Provider Internal Medicine Nephrology
DX: N18.32 Chronic kidney disease, stage 3b (principal)
CPT/HCPCS: 76770

== ENCOUNTER → 2022-01-04 | Outpatient (CLI) | payer MEDICARE, SELFPAY ==
[2022-01-04 17:23] LABS: Albumin, Serum 3.8 g/dL (3.2-5.0); BUN 27 mg/dL (7-18); BUN/Creat Ratio 24.8 RATIO (10-20); Calcium,Total 9.5 mg/dL (8.5-10.1); Chloride 108 mmol/L (98-107); Creatinine, Serum 1.09 mg/dL (0.55-1.02); EST Glomerular Filtration Rate 52 mL/min (>60); Est Glom Filt Rate - Afr Amer 62 mL/min (>60); Glucose 113 mg/dL (74-106); Phosphorus 3.5 mg/dL (2.5-4.9); Potassium 4.3 mmol/L (3.5-5.1); Sodium Level 139 mmol/L (136-145)
== END | disposition home or self-care (01) ==
LOC: POLAB3 13:08
PROVIDERS: PCP Family Medicine Geriatric Medicine; Visit Provider Internal Medicine Nephrology
DX: N18.32 Chronic kidney disease, stage 3b (principal)
CPT/HCPCS: 36415; 80069; 83970

== ENCOUNTER → 2022-03-16 | Outpatient (CLI) | payer MEDICARE, SELFPAY ==
[2022-03-16 16:18] LABS: Absolute Lymphocyte Count 5.05 X10^3/uL (0.83-4.51); Absolute Neutrophil Count 4.6 X10^3/uL (2.0-7.7); Basophil# 0.09 X10^3/uL; Basophil% 0.8 % (0-1); Eosinophil# 0.35 X10^3/uL; Eosinophils% 3.2 % (0-5); Hematocrit 36.4 % (37-47); Lymphocyte # 5.05 X10^3/ul (0.83-4.51); Lymphocyte % 46.5 % (19-41); Mean Corpuscular Hgb 31.6 pg (27.0-32.0); Mean Corpuscular Volume 95.8 fL (81-99); Monocyte# 0.75 X10^3/uL; Monocyte% 6.9 % (0-10); NRBC Flagged by Analyzer 0 % (0-5); Neutrophil # 4.61 X10^3/uL (2.7-7.7); Neutrophil % 42.4 % (47-70); POSITIVE DIFFERENTIAL YES; Platelet Count 278 K/mm3 (150-450); RBC Distribution Width CV 13.1 % (11.6-14.6); RBC Distribution Width SD 46.5 fl (35.1-43.9); White Blood Count 10.9 K/mm3 (4.4-11.0)
[2022-03-16 16:33] LABS: Vitamin D,25 Hydroxy 29.9 ng/mL
[2022-03-16 16:42] LABS: ALB/GLOB Ratio 0.9 RATIO (0.9-2.4); AST(SGOT) 25 U/L (15-37); Alanine Aminotransfer ALT/SGPT 32 U/L (13-56); Albumin, Serum 3.9 g/dL (3.2-5.0); Alkaline Phosphatase 62 U/L (45-117); Anion Gap 9 (5-15); BUN 38 mg/dL (7-18); BUN/Creat Ratio 35.8 RATIO (10-20); Calcium,Total 9.9 mg/dL (8.5-10.1); Chloride 104 mmol/L (98-107); Creatinine, Serum 1.06 mg/dL (0.55-1.02); EST Glomerular Filtration Rate 53 mL/min (>60); Est Glom Filt Rate - Afr Amer 64 mL/min (>60); Globulin 4.2 g/dL (2.2-4.2); Glucose 112 mg/dL (74-106); Potassium 4.1 mmol/L (3.5-5.1); Protein, Total 8.1 g/dL (6.4-8.2); Sodium Level 137 mmol/L (136-145); Thyroid Stim Hormone (TSH) 1.54 uIU/mL (0.358-3.74)
[2022-03-16 17:05] LABS: Differential Indicated SCAN CRITERIA MET
[2022-03-16 17:17] LABS: Differential Comment SCANNED
== END | disposition home or self-care (01) ==
LOC: POLAB3 14:55
PROVIDERS: PCP Family Medicine Geriatric Medicine; Visit Provider Family Medicine Geriatric Medicine
DX: E55.9 Vitamin D deficiency, unspecified (principal); I10 Essential (primary) hypertension
CPT/HCPCS: 36415; 80053; 82306; 84443; 85025

== ENCOUNTER 2022-04-12 19:55 | Inpatient (IN) | payer MEDICARE, SELFPAY ==
[2022-04-12] VITALS (7 sets, daily range): BP systolic 125–149; BP diastolic 50–70; PULSE 80–103; RESP 12–22; TEMP 37.1–37.9; O2SAT 92–95; BMI 44.1; BMI 43.7
--- NOTE | 2022-04-12 20:19 | EKG12_ITS ---
Test Reason : DYSRHYTHMIA Blood Pressure : / mmHG Vent. Rate : 099 BPM Atrial Rate : 099 BPM P-R Int : 228 ms QRS Dur : 086 ms QT Int : 322 ms P-R-T Axes : 079 015 024 degrees QTc Int : 413 ms Sinus rhythm with 1st degree A-V block Low voltage QRS Borderline ECG Confirmed by VERA BOWDEN, JOSE ([id number]), greeting card editor MANUEL EATON ([id number]) on 04/14/2022 10:08:21 AM Referred By: DANIEL Confirmed By:JOSE GAMEZ MD
[2022-04-12 20:39] LABS: Absolute Lymphocyte Count 0.72 X10^3/uL (0.83-4.51); Absolute Neutrophil Count 11.6 X10^3/uL (2.0-7.7); Basophil# 0.03 X10^3/uL; Basophil% 0.2 % (0-1); Hematocrit 34.7 % (37-47); Hemoglobin 11.5 g/dL (12.0-15.0); Lymphocyte # 0.72 X10^3/ul (0.83-4.51); Lymphocyte % 5.4 % (19-41); Mean Corp Hgb Conc 33.1 g/dL (32-36); Mean Corpuscular Hgb 31.4 pg (27.0-32.0); Mean Corpuscular Volume 94.8 fL (81-99); Mean Platelet Vol. 10.3 fl (6.2-12.0); Monocyte# 0.96 X10^3/uL; Monocyte% 7.2 % (0-10); NRBC Flagged by Analyzer 0 % (0-5); Neutrophil # 11.57 X10^3/uL (2.7-7.7); Neutrophil % 86.5 % (47-70); Platelet Count 247 K/mm3 (150-450); RBC Distribution Width CV 13.4 % (11.6-14.6); RBC Distribution Width SD 47.1 fl (35.1-43.9); Red Blood Count 3.66 M/mm3 (4.2-5.4); White Blood Count 13.4 K/mm3 (4.4-11.0)
[2022-04-12 20:41] LABS: Mucous, Urine 0 SEEN /hpf (<or=2+)
--- NOTE | 2022-04-12 20:44 | EX.ED.DYSGE1 ---
HPI History of Present Illness Chief Complaint: Fever Informant: patient Narrative Narrative: Patient is a 77 year old female with history of back pain presenting with fever and weakness. She had a sinus infection/cold 3 weeks ago and has had a lingering cough since. She feels that her cough is actually improving. She had persistent nausea since being sick. She notes she is had decreased urine volume when she tries to urinate and then has pain while sitting on the toilet. Denies any associate abdominal pain or change in bowel habits. Patient had increased weakness today and had a fever up to 103.3 at home so she was brought to the emergency room for further evaluation. She is also complained of associated headache. She did take Tylenol prior to arrival. No other complaints at this time. Has not taken any COVID test at home. Denies any known sick contacts. [facility] Medical History (Updated 04/13/22 @ 00:[address] Naomi Garrison, DO) Abdominal cramping Arthritis Carpal tunnel syndrome CKD (chronic kidney disease) DDD (degenerative disc disease), lumbar Diarrhea Hypertension IBS (irritable bowel syndrome) Osteoarthritis Home Medications lisinopril 20 mg tablet 20 mg PO QDAY BP 03/28/18 [History Last Taken 04/12/22] triamterene 37.5 mg-hydrochlorothiazide 25 mg capsule 1 cap PO DAILY BP 04/02/18 [History Last Taken 04/12/22] vit A 300 mcg-C 200 mg-E 27 mg-lutein 2 mg and minerals tablet 1 ea PO DAILY EYES 04/02/18 [History Last Taken 04/12/22] loratadine 10 mg tablet (Claritin) 10 mg PO DAILY allergies 04/19/21 [History Last Taken Unknown] vitamins-lipotropics 200 mg-100 mg tablet (Lipo-Flavonoid Plus) 1 tab PO DAILY supplement 04/01/22 [History Last Taken 04/12/22] Allergy/AdvReac Type Severity Reaction Status Date / Time latex Allergy Hives Verified 04/12/22 19:56 Family History Son Colon cancer Other Arthritis Hypertension Surgical History History of carpal tunnel surgery History of hysterectomy History of knee joint replacement Social History Smoking Status: Never smoker alcohol intake: never substance use type: does not use caffeine: Yes what type of physical activity do you participate in: walking frequency: 1-2 times per week seatbelt use: always do you feel safe at home: Yes additional social history: single- retired ROS ROS ED Constitutional Constitutional ED: Reports chills and fever(s) Eyes Eyes: Denies change in vision or diplopia ENT ENT ED: Reports other Details: nasal congestion ; Denies rhinorrhea or sore throat Cardiovascular Cardiovascular: Denies chest pain or palpitations Respiratory/Chest Respiratory/Chest: Reports cough; Denies dyspnea Gastrointestinal Gastrointestinal: Denies abdominal pain, constipation, diarrhea, nausea or vomiting Genitourinary Genitourinary ED: Reports dysuria; Denies hematuria or urinary frequency Musculoskeletal Musculoskeletal: Reports myalgias; Denies arthralgias Integumentary Denies rash Neurologic Neurologic: Reports headache(s); Denies paresthesias or weakness Psychiatric Psychiatric: Denies anxiety EXAM Physical Exam Const Vital Signs: 04/12/22 19:56 04/12/22 20:01 04/12/22 20:55 Temperature 100.2 F H 99.9 F H Temperature Source Oral Oral Pulse Rate 103 H 97 Respiratory Rate 16 20 H Respiratory Effort Normal Non-Labored Respiratory Pattern Normal Blood Pressure 149/70 H 137/58 H Blood Pressure Mean 96 84 Pulse Ox 94 92 Oxygen Delivery Method Room Air Room Air 04/12/22 20:19 04/12/22 20:19 04/12/22 21:19 Temperature 99.9 F H 98.9 F Temperature Source Oral Temporal Pulse Rate 80 Respiratory Rate 12 Respiratory Effort Respiratory Pattern Blood Pressure 125/65 H Blood Pressure Mean 85 Pulse Ox 93 94 Oxygen Delivery Method Room Air Room Air Positive well nourished and well developed General Appearance ED: well developed and NAD HEENT Reports dry mucous membranes HEENT Narrative: No tenderness or redness over the sinuses Negative for trauma or tenderness Mouth ED: Yes dry mucous membranes Mouth: dry mucous membranes Eyes PERRL and EOMs intact bilaterally Neck supple Neck Narrative: Normal range of motion. No nuchal rigidity. Chest Wall inspection of chest normal Resp normal respiratory effort and clear to auscultation bilaterally Auscultation: Negative for rales, rhonchi or wheezes Cardio regular rhythm and no murmurs Rate: tachycardic GI normal to inspection, nondistended, normoactive bowel sounds and non-tender Back/Spine no CVA tenderness Extremity normal to inspection General Extremety ED: Negative for edema or tenderness General Extremity: Negative for edema Neuro oriented x3 and CN's II-XII intact bilaterally Motor Exam: Negative for general weakness Psych mental status grossly normal Skin no rashes or lesions noted MDM MDM MDM Narrative Medical decision making narrative: Patient is evaluated for generalized weakness, fever at home and urinary symptoms. Patient appears dehydrated on physical exam and weak but no acute distress. Vital signs are significant for low-grade temperature of 100.2 upon arrival and tachycardia of 103. Suspect patient has a infection that is causing her symptoms. Work-up is remarkable for mild leukocytosis of 13.4, mild bump in her creatinine at 1.41 (her baseline is 1.01) and urinalysis with positive nitrites and 25-50 white blood cells as well as 2+ bacteria on straight cath. Urine culture sent as well as blood cultures. Patient's lactate is normal. She does not meet criteria for sepsis that she does not have any endorgan damage or lactic acidosis. Given her leukocytosis, urinary tract infection, fever and weakness I do think she would benefit from admission to the hospital. She started on IV Rocephin. She is given IV fluids. She is admitted to the hospital service. Patient and her son are agreeable with this plan of care. Lab Data Attestation: I reviewed the patient's lab results. Labs: Laboratory Results - last 24 hr 04/12/22 04/12/22 04/12/22 20:15 20:15 20:15 WBC 13.4 H RBC 3.66 L Hgb 11.5 L Hct 34.7 L MCV 94.8 MCH 31.4 MCHC 33.1 RDW Std Deviation 47.1 H RDW Coeff of Renny 13.4 Plt Count 247 MPV 10.3 Immature Gran % (Auto) 0.700 Neut % (Auto) 86.5 H Lymph % (Auto) 5.4 L [place] % (Auto) 7.2 Eos % (Auto) 0.0 Baso % (Auto) 0.2 Absolute Neuts (auto) 11.6 H Absolute Lymphs (auto) 0.72 L Nucleated RBC % 0 PT 14.7 INR 1.2 APTT 29.7 Sodium 139 Potassium 4.4 Chloride 109 H Carbon Dioxide 21.0 Anion Gap 9 BUN 45 H Creatinine 1.41 H Estim Creat Clear Calc 24.41 Est GFR (MDRD) Af Amer 46 L Est GFR (MDRD) Non-Af 38 L BUN/Creatinine Ratio 31.9 H Glucose 186 H Lactic Acid Calcium 8.9 Total Bilirubin 0.50 AST 27 ALT 22 Alkaline Phosphatase 71 Total Creatine Kinase 128 Total Protein 7.5 Albumin 3.3 Globulin 4.2 Albumin/Globulin Ratio 0.8 L Urine Color Urine Clarity Urine pH Ur Specific [place] Urine Protein Urine Glucose (UA) Urine Ketones Urine Occult Blood Urine Nitrite Urine Bilirubin Urine Urobilinogen Ur Leukocyte Esterase Urine RBC Urine WBC Ur Squamous Epith Cells Urine Bacteria Urine Mucus 04/12/22 04/12/22 20:15 20:35 WBC RBC Hgb Hct MCV MCH MCHC RDW Std Deviation RDW Coeff of Renny Plt Count MPV Immature Gran % (Auto) Neut % (Auto) Lymph % (Auto) [place] % (Auto) Eos % (Auto) Baso % (Auto) Absolute Neuts (auto) Absolute Lymphs (auto) Nucleated RBC % PT INR APTT Sodium Potassium Chloride Carbon Dioxide Anion Gap BUN Creatinine Estim Creat Clear Calc Est GFR (MDRD) Af Amer Est GFR (MDRD) Non-Af BUN/Creatinine Ratio Glucose Lactic Acid 1.2 Calcium Total Bilirubin AST ALT Alkaline Phosphatase Total Creatine Kinase Total Protein Albumin Globulin Albumin/Globulin Ratio Urine Color Yellow Urine Clarity Sl. Cloudy Urine pH 5.0 Ur Specific [place] 1.010 Urine Protein 30 H Urine Glucose (UA) Normal Urine Ketones Negative Urine Occult Blood 150 H Urine Nitrite Positive H Urine Bilirubin Negative Urine Urobilinogen Normal Ur Leukocyte Esterase 500 H Urine RBC 0-5 SEEN Urine WBC 25-50 SEEN Ur Squamous Epith Cells 0-5 SEEN Urine Bacteria 2+ Urine Mucus 0 SEEN Radiography Chest X-Ray - ED: 1 View, Read by ED Physician, Read by Radiologist and No Acute Disease Diagnostic Testing: Clinical Impression(s) from Imaging Studies Chest X-Ray 04/12/22 21:00 IMPRESSION: 1. No radiographic evidence of acute cardiopulmonary disease. Electronically Signed: Gary Austin DO at 21:49 EDT , Rhythm Strip Rhythm Strip: Sinus Rhythm Rate: 99 Ectopy: None EKG Initial EKG: Attestation: I personally reviewed and interpreted this EKG as follows: Interpretation: Sinus Rhythm Comments: Normal sinus rhythm at a rate of 99 with first-degree AV block MD interval 228 Normal axis Normal intervals Normal ST segments Discharge Plan Dx/Rx/DC Orders Clinical Impression: Dehydration, UTI (urinary tract infection), Leukocytosis, Weakness Disposition Disposition: Acute Care Hospital [facility] Discharge Date/Time: 04/12/22 22:28
[2022-04-12 20:49] LABS: International Normalized Ratio 1.2; Prothrombin Time (Protime)PT. 14.7 SECONDS (11.7-14.9)
[2022-04-12 20:50] LABS: Partial Thromboplast Time 29.7 Seconds (24.1-36.2)
[2022-04-12] MEDS: 0.9% Normal Saline 1,000 ML 999 ML IV (20:57)
--- NOTE | 2022-04-12 21:00 | RAD_ITS ---
INDICATION: fever EXAMINATION/TECHNIQUE: X-RAY - XR Chest 1 View COMPARISON: None. FINDINGS: LINES/DEVICES: None. LUNGS: Symmetric normal lung volumes. No airspace opacity or abnormal interstitial pattern. No nodule or mass. No pleural effusion or pneumothorax. MEDIASTINUM AND CARDIOVASCULAR STRUCTURES: Normal size and contour of the cardiomediastinal silhouette. No evidence of pulmonary vascular congestion. BONES AND SOFT TISSUES: Significant degenerative changes bilateral shoulders. RAD/Chest 1 View (Portable) IMPRESSION: 1. No radiographic evidence of acute cardiopulmonary disease. Electronically Signed: Gary Austin DO at 21:49 EDT ,
[2022-04-12 21:03] LABS: Color, Urine Yellow (Yellow); Glucose, Dipstick Normal (Normal); Ketone-Dipstick Negative (Negative); Leukocyte Esterase-Dipstick 500 /ul (Negative); Nitrite-Dipstick Positive (Negative); Occult Blood-Urine 150 /ul (Negative); Protein-Dipstick 30 mg/dl (Negative); Urine Bilirubin Dipstick Negative (Negative); Urine Clarity Sl. Cloudy (Clear); Urine Urobilinogen Normal (Normal)
[2022-04-12 21:12] LABS: White Blood Cells 25-50 SEEN /hpf (0-5)
[2022-04-12 21:13] LABS: Bacteria 2+ /hpf (None Seen); Red Blood Cells-Urine 0-5 SEEN /hpf (0-5); Squamous Epithelial Cells - UA 0-5 SEEN /hpf (5-10)
[2022-04-12 21:14] LABS: ALB/GLOB Ratio 0.8 RATIO (0.9-2.4); AST(SGOT) 27 U/L (15-37); Alanine Aminotransfer ALT/SGPT 22 U/L (13-56); Albumin, Serum 3.3 g/dL (3.2-5.0); Alkaline Phosphatase 71 U/L (45-117); Anion Gap 9 (5-15); BUN 45 mg/dL (7-18); BUN/Creat Ratio 31.9 RATIO (10-20); CPK Total, Creatine Kinase 128 U/L (26-192); Calcium,Total 8.9 mg/dL (8.5-10.1); Chloride 109 mmol/L (98-107); Creatinine, Serum 1.41 mg/dL (0.55-1.02); EST Glomerular Filtration Rate 38 mL/min (>60); Est Glom Filt Rate - Afr Amer 46 mL/min (>60); Estimated Creatinine Clearance 24.41 ml/min; Globulin 4.2 g/dL (2.2-4.2); Glucose 186 mg/dL (74-106); Potassium 4.4 mmol/L (3.5-5.1); Protein, Total 7.5 g/dL (6.4-8.2); Sodium Level 139 mmol/L (136-145)
[2022-04-12 21:15] LABS: Lactic Acid 1.2 mmol/L (0.4-1.9)
--- NOTE | 2022-04-12 22:06 | PCM.HP.STD ---
HPI - General General Date of Admission: 04/12/22 Date of Service: 04/12/22 Chief Complaint: Decreased urination HPI Narrative MAHAMED SHANKS, is a 77 F with a significant history of arthritis and irritable bowel syndrome who presents to the emergency department with decreased frequency of urination and decreased urinary amounts. She denies any dysuria. Positive for symptoms is generalized weakness. For the patient's recently had sinus tract infection. She reported sinus tract infection has resolved. She reports malaise x3 weeks. On the presentation she had a fever of 103 Fahrenheit at home. She reports chills, rigors and a poor appetite. She reported nausea without vomiting. She reports headache and neck pain. She denies shortness of breath [facility] Medical History (Updated 04/12/22 @ 22:[address] Landry Chavez MD) Abdominal cramping Arthritis Carpal tunnel syndrome CKD (chronic kidney disease) DDD (degenerative disc disease), lumbar Diarrhea High cholesterol Hypertension IBS (irritable bowel syndrome) Osteoarthritis Medical History no medical history no medical history Home Medications lisinopril 20 mg tablet 20 mg PO QDAY BP 03/28/18 [History Last Taken 04/04/18] triamterene 37.5 mg-hydrochlorothiazide 25 mg capsule 1 cap PO DAILY 04/02/18 [History Last Taken Unknown] vit A 300 mcg-C 200 mg-E 27 mg-lutein 2 mg and minerals tablet 1 ea PO DAILY EYES 04/02/18 [History Last Taken Unknown] loratadine 10 mg tablet (Claritin) 10 mg PO DAILY 04/19/21 [History Last Taken Unknown] vitamins-lipotropics 200 mg-100 mg tablet (Lipo-Flavonoid Plus) 1 tab PO DAILY 04/01/22 [History Last Taken Unknown] Allergy/AdvReac Type Severity Reaction Status Date / Time latex Allergy Hives Verified 04/12/22 19:56 Family History Son Colon cancer Other Arthritis Hypertension Surgical History History of carpal tunnel surgery History of hysterectomy History of knee joint replacement Social History Smoking Status: Never smoker alcohol intake: never substance use type: does not use caffeine: Yes what type of physical activity do you participate in: walking frequency: 1-2 times per week seatbelt use: always do you feel safe at home: Yes additional social history: single- retired ROS ROS Narrative Pertinent positives and pertinent negatives as noted in HPI. All other systems were reviewed and are negative. Vital Signs Vital Signs Vital Signs: 04/12/22 19:56 04/12/22 20:01 04/12/22 20:55 Temperature 100.2 F H 99.9 F H Temperature Source Oral Oral Pulse Rate 103 H 97 Respiratory Rate 16 20 H Respiratory Effort Normal Non-Labored Respiratory Pattern Normal Blood Pressure 149/70 H 137/58 H Blood Pressure Mean 96 84 Pulse Ox 94 92 Oxygen Delivery Method Room Air Room Air 04/12/22 20:19 04/12/22 20:19 Temperature 99.9 F H Temperature Source Oral Pulse Rate Respiratory Rate Respiratory Effort Respiratory Pattern Blood Pressure Blood Pressure Mean Pulse Ox 93 Oxygen Delivery Method Room Air Weight Weight: 105.9 kg Body Mass Index (BMI) 44.1 Physical Exam Narrative Physical exam: General: Well-nourished, well-developed. Head: Normocephalic, atraumatic, no tenderness Eyes: Vision is grossly intact. EOMI ENT, no trauma, dry mucous membranes, no rhinorrhea Neck: Nontender, full range of motion, no spinal tenderness, deformities, step-off CVS: Regular rate and rhythm. S1-S2 present. No murmur, gallop or rub. Respiratory : clear to auscultation bilaterally, chest wall nontender, no wheezing Abdomen: Soft, nontender, nondistended, normal bowel sounds, no masses : Deferred Back: Nontender, no CVA tenderness, no midline spinal tenderness, deformities, step-offs Extremities: Nontender full range of motion, no trauma Skin: Normal color, no trauma, abrasions Neuro: Alert, oriented, cranial nerves II through XII grossly intact. Psychiatry: Normal mood. Normal affect. Not depressed. Not anxious. Results Medical Records Data Attestation: I reviewed the patient's medical records Lab / Micro Data Attestation: I reviewed the patient's lab results. Result Diagrams: 04/12/22 20:15 04/12/22 20:15 Labs: Laboratory Results - last 24 hr 04/12/22 20:15: WBC 13.4 H, RBC 3.66 L, Hgb 11.5 L, Hct 34.7 L, MCV 94.8, MCH 31.4, MCHC 33.1, RDW Std Deviation 47.1 H, RDW Coeff of Renny 13.4, Plt Count 247, MPV 10.3, Immature Gran % (Auto) 0.700, Neut % (Auto) 86.5 H, Lymph % (Auto) 5.4 L, [place] % (Auto) 7.2, Eos % (Auto) 0.0, Baso % (Auto) 0.2, Absolute Neuts (auto) 11.6 H, Absolute Lymphs (auto) 0.72 L, Nucleated RBC % 0 04/12/22 20:15: PT 14.7, INR 1.2, APTT 29.7 04/12/22 20:15: Sodium 139, Potassium 4.4, Chloride 109 H, Carbon Dioxide 21.0, Anion Gap 9, BUN 45 H, Creatinine 1.41 H, Estim Creat Clear Calc 24.41, Est GFR (MDRD) Af Amer 46 L, Est GFR (MDRD) Non-Af 38 L, BUN/Creatinine Ratio 31.9 H, Glucose 186 H, Calcium 8.9, Total Bilirubin 0.50, AST 27, ALT 22, Alkaline Phosphatase 71, Total Creatine Kinase 128, Total Protein 7.5, Albumin 3.3, Globulin 4.2, Albumin/Globulin Ratio 0.8 L 04/12/22 20:15: Lactic Acid 1.2 04/12/22 20:35: Urine Color Yellow, Urine Clarity Sl. Cloudy, Urine pH 5.0, Ur Specific [place] 1.010, Urine Protein 30 H, Urine Glucose (UA) Normal, Urine Ketones Negative, Urine Occult Blood 150 H, Urine Nitrite Positive H, Urine Bilirubin Negative, Urine Urobilinogen Normal, Ur Leukocyte Esterase 500 H, Urine RBC 0-5 SEEN, Urine WBC 25-50 SEEN, Ur Squamous Epith Cells 0-5 SEEN, Urine Bacteria 2+, Urine Mucus 0 SEEN Micro: Microbiology 04/12/22 20:30 Nasal Secretion SARS-CoV-2 Antigen (Rapid) - Final Radiology Impression Chest X-Ray 04/12/22 21:00 IMPRESSION: 1. No radiographic evidence of acute cardiopulmonary disease. Electronically Signed: Gary Austin DO at 21:49 EDT , Assessment & Plan Assessment/Plan (1) UTI (urinary tract infection): (2) Dehydration: (3) JIAN (acute kidney injury): PLAN: Plan UTI Patient does not meet 2 SIRS criteria. There is no organ dysfunction. Sepsis ruled out. A positive urinary symptoms and abnormal urinalysis. Urine culture is pending. Covid-19 screen is negative. Chest x-ray image was visualized and independently interpreted and I agree with radiologist interpretation of no acute cardiopulmonary process. CBC reviewed showed white count of 13.4 with neutrophilia of 86.5% and lymphopenia of 5.4%. Trend CBC Ceftriaxone is given at the emergency department and continued. JIAN on CKD stage IIIa/dehydration CKD likely secondary to hypertensive nephrosclerosis. Creatinine on presentation was 1.41. Creatinine baseline is around 1.08. BUN is 45. BUN/CR is 31.9. Likely prerenal from dehydration. Gentle IV hydration. Trend BMP. Avoid nephrotoxic's. Hypertension Blood pressure is stable Lisinopril; and triamterene?hydrochlorothiazide held secondary to JIAN. As needed IV hydralazine ordered. Trend blood pressure and adjust blood pressure medications. cardiac diet ordered. Headache Tylenol prn ordered. Advance care planning: Discussed with patient and family (son at the bedside) advanced directives as well as CODE STATUS. Explained various CODE STATUS: FULL CODE, DNR CCA, DNR CCA with no intubation, and DNR CC- and what each meant. Patient elected to be a partial code with CPR but not intubation if warranted. Order was placed. Time spent on discussion 16 minutes. Charges/Coding Visit Charges Inpatient E&M: 31242 Init Hosp L3 Procedures Hospitalists Procedures: 17453 Advncd Care Plan 30 Min
[2022-04-12] MEDS: Ceftriaxone 1 GM/50 ML BAG IV (22:08)
[2022-04-12] MEDS: 0.9% Normal Saline 1,000 ML 75 ML IV (23:00)
[2022-04-13] VITALS (7 sets, daily range): BP systolic 116–134; BP diastolic 52–89; PULSE 65–76; RESP 16–18; TEMP 36.5–38.7; O2SAT 92–100
[2022-04-13 06:56] LABS: Absolute Neutrophil Count 8.9 X10^3/uL (2.0-7.7); Basophil# 0.03 X10^3/uL; Basophil% 0.3 % (0-1); Hematocrit 34.1 % (37-47); Hemoglobin 11.1 g/dL (12.0-15.0); Lymphocyte % 10.5 % (19-41); Mean Corp Hgb Conc 32.6 g/dL (32-36); Mean Corpuscular Hgb 31.8 pg (27.0-32.0); Mean Corpuscular Volume 97.7 fL (81-99); Mean Platelet Vol. 9.9 fl (6.2-12.0); Monocyte# 1.19 X10^3/uL; Monocyte% 10.4 % (0-10); NRBC Flagged by Analyzer 0 % (0-5); Neutrophil # 8.93 X10^3/uL (2.7-7.7); Neutrophil % 78.4 % (47-70); Platelet Count 194 K/mm3 (150-450); RBC Distribution Width CV 13.4 % (11.6-14.6); RBC Distribution Width SD 47.8 fl (35.1-43.9); Red Blood Count 3.49 M/mm3 (4.2-5.4); White Blood Count 11.4 K/mm3 (4.4-11.0)
[2022-04-13 07:26] LABS: Anion Gap 8 (5-15); BUN 43 mg/dL (7-18); BUN/Creat Ratio 35.5 RATIO (10-20); Calcium,Total 8.2 mg/dL (8.5-10.1); Chloride 110 mmol/L (98-107); Creatinine, Serum 1.21 mg/dL (0.55-1.02); EST Glomerular Filtration Rate 46 mL/min (>60); Est Glom Filt Rate - Afr Amer 55 mL/min (>60); Estimated Creatinine Clearance 28.45 ml/min; Glucose 141 mg/dL (74-106); Potassium 4.1 mmol/L (3.5-5.1); Sodium Level 137 mmol/L (136-145)
[2022-04-13] MEDS: Acetaminophen 325 MG Tablet 650 MG PO ×3 (09:06→22:36)
[2022-04-13] MEDS: Loratadine 10 MG Tablet PO (09:06)
[2022-04-13] MEDS: Ceftriaxone 1 GM/50 ML BAG IV (09:06)
[2022-04-13] MEDS: Enoxaparin 30 MG/0.3 ML Syringe SC (09:06)
--- NOTE | 2022-04-13 10:40 | CASEMGMT ---
Addendum entered by Delmy Smith 04/13/22 13:10: Son provided w/phone number for [employer] w/visual impairment to see if there is adaptive equipment available for pt. Original Note: RN CM COMPOSITE BOND TECHNICIAN CM to room to meet with patient for initial transition planning/care coordination assessment. RN MAC introduced self and role at [facility]. Pt voices understanding and consents to assessment at this time. Pt sitting up in chair in room in no distress at this time. Son, Lee, in room visiting. Pt agreeable to him being present during assess. Pt is A/O at this time and answers all questions appropriately. Care providers, pharmacy, and demographics verified/updated at this time. PCP: Dr Falcon Specialists: Dr Zurita-retinal specialist in [facility] Pharmacy: [facility] Retail Insurance: [facility] Prescription Benefit: Yes Living Will/HPOA: States does not have LW or HCPOA . Interested in more information but states does not want to talk with SW at this time to complete paperwork. Provided information on advanced directives and has Social Service rac card with number to call if chooses in the future to utilize [facility] social work for advanced directive completion. Patient expresses understanding. LNOK: 2 sons. One's name is Lee. Living Arrangements: Lives w/son, Lee, and dtr-in-law, Lizzy. They live in a one-story home w/3 steps to enter. Pt does well w/the steps. Family works during the day, so pt is home alone while they are at work. Pt is independent w/ADL's and most IADL's. Pt has poor vision d/t macular degenerations. Pt able to manage her own medications w/organized system. Family does assist when needed. Transportation: Family. DME: Has a cane. Pt has been using a walker while @ [facility]. Pt states she is not sure if she wants a walker @ home. Pt and son made aware a script can be sent to a DME co and walker can be delivered to pt's room prior to discharge, if pt decides she would like one. Son states they have one available, if needed. He plans to check it today so to make sure it is correct height and to see if there are wheels on it. He will inform RN CM if they do decide they would like to get a new one. Pt and son state no need for further DME at this time. HHC/SNF: No hx of either. Pt denies need for HHC. Pt and son made aware, if in the future pt would like HHC, to discuss this w/pt's PCP. Pt wishes to return home and states has no concerns with going home at time of discharge. CM to follow for any discharge planning/needs. Pt and son voice no further concerns/needs at this time. Advised them to ask for CM if any further questions/concerns/needs arise. They voices understanding. PLAN: Home w/family support and discharge plans in place. Suzanne CHU RN CM
--- NOTE | 2022-04-13 12:49 | PN.HOSP_ITS ---
Documented by User: ALVERTO Castaneda 04/13/22 12:55 Subjective Subjective Patient seen and examined. Patient lying in bed eating breakfast no distress noted. Objective Data Objective Data Vital Signs: Vital Signs Temp Pulse Resp BP Pulse Ox O2 Del Method 98.7 F 70 16 134/54 H 97 Room Air 04/13/22 11:04 04/13/22 08:59 04/13/22 08:59 04/13/22 08:59 04/13/22 08:59 04/13/22 08:59 Oxygen Delivery Method Room Air Weight: 231 lb 4.238 oz Body Mass Index (BMI) 43.7 Intake & Output: Intake and Output for Last 24 Hours 04/11/22 04/12/22 04/13/22 23:59 23:59 23:59 Intake Total 1050 / 1050 807.5 / 807.5 Output Total 250 / 250 Balance 1050 / 1050 557.5 / 557.5 Lab / Micro Data Result Diagrams: 04/13/22 06:30 04/13/22 06:30 Labs: Laboratory Results - last 24 hr 04/12/22 20:15: WBC 13.4 H, RBC 3.66 L, Hgb 11.5 L, Hct 34.7 L, MCV 94.8, MCH 31.4, MCHC 33.1, RDW Std Deviation 47.1 H, RDW Coeff of Renny 13.4, Plt Count 247, MPV 10.3, Immature Gran % (Auto) 0.700, Neut % (Auto) 86.5 H, Lymph % (Auto) 5.4 L, [place] % (Auto) 7.2, Eos % (Auto) 0.0, Baso % (Auto) 0.2, Absolute Neuts (auto) 11.6 H, Absolute Lymphs (auto) 0.72 L, Nucleated RBC % 0 04/12/22 20:15: PT 14.7, INR 1.2, APTT 29.7 04/12/22 20:15: Sodium 139, Potassium 4.4, Chloride 109 H, Carbon Dioxide 21.0, Anion Gap 9, BUN 45 H, Creatinine 1.41 H, Estim Creat Clear Calc 24.41, Est GFR (MDRD) Af Amer 46 L, Est GFR (MDRD) Non-Af 38 L, BUN/Creatinine Ratio 31.9 H, Glucose 186 H, Calcium 8.9, Total Bilirubin 0.50, AST 27, ALT 22, Alkaline Phosphatase 71, Total Creatine Kinase 128, Total Protein 7.5, Albumin 3.3, Globulin 4.2, Albumin/Globulin Ratio 0.8 L 04/12/22 20:15: Lactic Acid 1.2 04/12/22 20:35: Urine Color Yellow, Urine Clarity Sl. Cloudy, Urine pH 5.0, Ur Specific [place] 1.010, Urine Protein 30 H, Urine Glucose (UA) Normal, Urine Ketones Negative, Urine Occult Blood 150 H, Urine Nitrite Positive H, Urine Bilirubin Negative, Urine Urobilinogen Normal, Ur Leukocyte Esterase 500 H, Urine RBC 0-5 SEEN, Urine WBC 25-50 SEEN, Ur Squamous Epith Cells 0-5 SEEN, Urine Bacteria 2+, Urine Mucus 0 SEEN 04/13/22 06:30: WBC 11.4 H, RBC 3.49 L, Hgb 11.1 L, Hct 34.1 L, MCV 97.7, MCH 31.8, MCHC 32.6, RDW Std Deviation 47.8 H, RDW Coeff of Renny 13.4, Plt Count 194, MPV 9.9, Immature Gran % (Auto) 0.400, Neut % (Auto) 78.4 H, Lymph % (Auto) 10.5 L, [place] % (Auto) 10.4 H, Eos % (Auto) 0.0, Baso % (Auto) 0.3, Absolute Neuts (auto) 8.9 H, Absolute Lymphs (auto) 1.20, Nucleated RBC % 0 04/13/22 06:30: Sodium 137, Potassium 4.1, Chloride 110 H, Carbon Dioxide 19.0 L , Anion Gap 8, BUN 43 H, Creatinine 1.21 H, Estim Creat Clear Calc 28.45, Est GFR (MDRD) Af Amer 55 L, Est GFR (MDRD) Non-Af 46 L, BUN/Creatinine Ratio 35.5 H , Glucose 141 H, Calcium 8.2 L Micro: Microbiology 04/12/22 20:35 Urine, Clean Catch Urine Culture - Preliminary Presumptive E. coli 04/12/22 20:30 Blood Culture (Wb) - Right Forearm Blood Culture - Preliminary 04/12/22 20:15 Blood Culture (Wb) - Arm Left Blood Culture - Preliminary 04/12/22 20:30 Nasal Secretion SARS-CoV-2 Antigen (Rapid) - Final Radiography Diagnostic Testing: Radiology Impression Chest X-Ray 04/12/22 21:00 IMPRESSION: 1. No radiographic evidence of acute cardiopulmonary disease. Electronically Signed: Gary Austin DO at 21:49 EDT , Rhythm Strip Rhythm Strip: Sinus Rhythm Rate: 99 Ectopy: None Physical Exam Const alert, oriented x3 and no apparent distress HEENT head/scalp atraumatic and moist oral mucous membranes Head and Scalp: normocephalic Eyes conjunctivae normal and no scleral icterus Neck supple Resp normal respiratory effort, normal air movement and clear to auscultation bilaterally Effort and Inspection: able to speak in complete sentences and symmetric chest movement Cardio regular rate, regular rhythm, S1 normal heart sound and S2 normal heart sound GI normal to inspection, nondistended, normoactive bowel sounds, soft to palpation and non-tender Extremity normal to inspection and full ROM Neuro oriented x3, moves all extremities, no focal motor deficits and no sensory deficits noted Psych affect normal Assessment & Plan Assessment/Plan (1) UTI (urinary tract infection): (2) JIAN (acute kidney injury): (3) Weakness: PLAN: Plan 1. Acute kidney injury on chronic kidney disease stage IIIa secondary to UTI and dehydration -Sepsis ruled out -Continue ceftriaxone -Urine and blood cultures pending -Continue IV fluids -BUN and creatinine improved from yesterday -BMP daily -PT and OT following 2. Hypertension -At home blood pressure medications on hold secondary to JIAN -Vital signs per protocol, currently stable -As needed hydralazine ordered IV DVT prophylaxis-subcu Lovenox This patient was seen by ALVARO CastanedaC under the supervision of Dr. Pierre. 13 minutes spent in clinical coordination of patient's plan of care. Documented by User: Dr. Aly Pierre DO 04/13/22 16:03 Objective Data Lab / Micro Data Result Diagrams: 04/13/22 06:30 04/13/22 06:30 Assessment & Plan Assessment/Plan (1) UTI (urinary tract infection): (2) JIAN (acute kidney injury): (3) Weakness: Charges/Coding Addendum Addendum: Patient was seen and examined today independently of Marisel Kauffman, her blood cultures grew out a gram-negative yaneth, urine culture grew out presumptive E. coli. Patient is currently on Rocephin. On examination she appeared in good health and spirits, she does not appear to be in any distress. Vital signs as documented. Skin warm and dry and without overt rashes. Neck without JVD, thyroid appears normal, trachea is midline, neck is supple. Lungs clear, normal air movement was noted. Heart exam notable for regular rhythm, normal sounds and absence of murmurs, rubs or gallops. Abdomen unremarkable and without evidence of organomegaly, masses, or abdominal aortic enlargement, bowel sounds are present in all 4 quadrants, no abdominal tenderness was noted. Extremities nonedematous, no cyanosis was noted, no clubbing was noted. Neuro: Cranial nerves II through XII are grossly intact, no focal motor deficits were noted, sensation to light touch and pinprick is intact, motor exam 5/5 throughout. Psych: Patient is alert and oriented x3, she does not appear anxious or depressed, she does not appear agitated. Impression: #1 uhhtgbndma-[id number] yaneth, probably E. coli, from acute cystitis-continue IV Rocephin at this time, await identification and sensitivity #2 acute cystitis with E. coli-continue Rocephin #3 dehydration-continue IV fluid administration, labs will be monitored #4 chronic kidney disease stage IIIa-continue to monitor labs #5 essential hypertension-patient will resume lisinopril tomorrow morning, I will hold her diuretic I have reviewed Marisel Kauffman's progress note including her medical assessment and plan of care with the above additions endorse it. Total clinical time spent by myself addressing the patient's medical issues, reviewing the data, and collaborating with patient's care team: 22 minutes Visit Charges Inpatient E&M: 24886 Subs Hosp L3
[2022-04-13] MEDS: 0.9% Normal Saline 1,000 ML 75 ML IV (13:19)
[2022-04-14] MEDS: 0.9% Normal Saline 1,000 ML 75 ML IV (02:30)
[2022-04-14 02:32] VITALS: BP 130/51; PULSE 63; RESP 18; TEMP 36.8; O2SAT 94
[2022-04-14 07:15] LABS: Absolute Neutrophil Count 5.4 X10^3/uL (2.0-7.7); Basophil# 0.03 X10^3/uL; Basophil% 0.4 % (0-1); Eosinophil# 0.02 X10^3/uL; Eosinophils% 0.3 % (0-5); Hematocrit 30.2 % (37-47); Hemoglobin 10.1 g/dL (12.0-15.0); Mean Corp Hgb Conc 33.4 g/dL (32-36); Mean Corpuscular Hgb 31.3 pg (27.0-32.0); Mean Corpuscular Volume 93.5 fL (81-99); Mean Platelet Vol. 10.1 fl (6.2-12.0); Monocyte# 0.82 X10^3/uL; Monocyte% 10.7 % (0-10); NRBC Flagged by Analyzer 0 % (0-5); Neutrophil # 5.44 X10^3/uL (2.7-7.7); Neutrophil % 70.9 % (47-70); Platelet Count 184 K/mm3 (150-450); RBC Distribution Width CV 13.3 % (11.6-14.6); RBC Distribution Width SD 46.2 fl (35.1-43.9); Red Blood Count 3.23 M/mm3 (4.2-5.4); White Blood Count 7.7 K/mm3 (4.4-11.0)
[2022-04-14 07:30] VITALS: O2SAT 96
[2022-04-14 07:49] LABS: ALB/GLOB Ratio 0.6 RATIO (0.9-2.4); AST(SGOT) 28 U/L (15-37); Alanine Aminotransfer ALT/SGPT 23 U/L (13-56); Albumin, Serum 2.5 g/dL (3.2-5.0); Alkaline Phosphatase 62 U/L (45-117); Anion Gap 6 (5-15); BUN 43 mg/dL (7-18); BUN/Creat Ratio 38.4 RATIO (10-20); Calcium,Total 7.8 mg/dL (8.5-10.1); Chloride 109 mmol/L (98-107); Creatinine, Serum 1.12 mg/dL (0.55-1.02); EST Glomerular Filtration Rate 50 mL/min (>60); Est Glom Filt Rate - Afr Amer 60 mL/min (>60); Estimated Creatinine Clearance 30.73 ml/min; Globulin 4.1 g/dL (2.2-4.2); Glucose 130 mg/dL (74-106); Potassium 3.6 mmol/L (3.5-5.1); Protein, Total 6.6 g/dL (6.4-8.2); Sodium Level 137 mmol/L (136-145)
[2022-04-14 09:21] VITALS: BP 128/59; PULSE 70; RESP 16; TEMP 38.3; O2SAT 96
[2022-04-14] MEDS: Ceftriaxone 1 GM/50 ML BAG IV (09:34)
[2022-04-14] MEDS: Loperamide 2 MG Capsule PO (09:34)
[2022-04-14] MEDS: Loratadine 10 MG Tablet PO (09:34)
[2022-04-14] MEDS: Acetaminophen 325 MG Tablet 650 MG PO (09:36)
--- NOTE | 2022-04-14 11:00 | DCINST_ITS ---
Discharge Instructions Diet Discharge Diet: No restrictions Activity Discharge Activity: Return to Normal Activity Weight Bearing Status: Full weight bearing Follow Up Care Test Results: Test results from this visit will be discussed in further detail at your follow- up appointment, if applicable. Discharge Plan Admission Admit Date/Time: 04/12/22 22:00 Primary Reason for Your Visit: urinary tract infection with bacteremia Attending Provider: Aly Pierre Primary Care Provider: Steve Falcon Chi Consulting Providers: Landry Chavez Discharge Orders/Prescriptions Prescriptions: New cephalexin 500 mg tablet 500 mg PO Q8H Qty: 21 0RF Rx Instructions: start on 04/15/22 Continued lisinopril 20 mg tablet 20 mg PO QDAY loratadine [Claritin] 10 mg tablet 10 mg PO DAILY Lipo-Flavonoid Plus 200-100 mg tablet 1 tab PO DAILY vit A,C and P-tlrqpf-jeuqlktb 1 EACH tablet 1 ea PO DAILY Discontinued triamterene-hydrochlorothiazid 1 CAP capsule 1 cap PO DAILY Referrals / Follow Up: Steve Falcon Chi, MD [Primary Care Provider] - Within 2 Weeks Disposition Disposition (needs filled in before D/C Order can be placed): Home, Self Care
--- NOTE | 2022-04-14 11:09 | PCM.DC.SUM ---
Providers Date of Admission: 04/12/22 Date of Discharge: 04/14/22 Primary Care Physician: Dr. Steve Falcon MD Reason For Visit: UTI, DEHYDRATION, GENERALIZED WEAKNESS Diagnosis Discharge Diagnosis (1) UTI (urinary tract infection): Status: Acute Code(s): N39.0 - Urinary tract infection, site not specified (2) JIAN (acute kidney injury): Status: Acute Code(s): N17.9 - Acute kidney failure, unspecified (3) Weakness: Status: Acute Code(s): R53.1 - Weakness Plan Final diagnosis: #1 bacteremia with E. coli-secondary to acute cystitis #2 acute cystitis secondary to E. coli #3 dehydration #4 chronic kidney disease stage III AA #5 essential hypertension Medications at Discharge Home Medications lisinopril 20 mg tablet 20 mg PO QDAY BP 03/28/18 vit A 300 mcg-C 200 mg-E 27 mg-lutein 2 mg and minerals tablet 1 ea PO DAILY EYES 04/02/18 loratadine 10 mg tablet (Claritin) 10 mg PO DAILY allergies 04/19/21 vitamins-lipotropics 200 mg-100 mg tablet (Lipo-Flavonoid Plus) 1 tab PO DAILY supplement 04/01/22 cephalexin 500 mg tablet 500 mg PO Q8H #21 tabs 04/14/22 Hospital Course Operations None Procedures None Summary of Care Provided Minutes Spent on Discharge: 31 Hospital Course: This 77-year-old white female was seen in the emergency room at [facility] with chief complaint of weakness with a fever. Patient also complained of decreased urination at home. Work-up in the emergency room showed the patient's white blood cell count to be elevated at 13.4, chest x-ray showed no evidence of pneumonia, creatinine was elevated at 1.41, urinalysis indicated a urinary tract infection with bacteria and white blood cells. Patient was admitted to [place] [address], she was given IV fluids, IV antibiotics, blood cultures and urine culture resulted positive for E. coli, patient improved rapidly during her hospitalization. On 04/14/2022, patient was seen and examined: On examination she appeared in good health and spirits, she does not appear to be in any distress. Vital signs as documented. Skin warm and dry and without overt rashes. Neck without JVD, thyroid appears normal, trachea is midline, neck is supple. Lungs clear, normal air movement was noted. Heart exam notable for regular rhythm, normal sounds and absence of murmurs, rubs or gallops. Abdomen unremarkable and without evidence of organomegaly, masses, or abdominal aortic enlargement, bowel sounds are present in all 4 quadrants, no abdominal tenderness was noted. Extremities nonedematous, no cyanosis was noted, no clubbing was noted. Neuro: Cranial nerves II through XII are grossly intact, no focal motor deficits were noted, sensation to light touch and pinprick is intact, motor exam 5/5 throughout. Psych: Patient is alert and oriented x3, she does not appear anxious or depressed, she does not appear agitated. Patient was discharged in stable condition to home on 04/14/2022. Weight / BMI Weight Weight: 104.9 kg Body Mass Index (BMI) 43.7 ABG / Lab / Microbiology Data Result Diagrams: 04/14/22 06:50 04/14/22 06:50 Laboratory: Laboratory Results - last 24 hr 04/14/22 06:50: WBC 7.7, RBC 3.23 L, Hgb 10.1 L, Hct 30.2 L, MCV 93.5, MCH 31.3, MCHC 33.4, RDW Std Deviation 46.2 H, RDW Coeff of Renny 13.3, Plt Count 184, MPV 10.1, Immature Gran % (Auto) 0.700, Neut % (Auto) 70.9 H, Lymph % (Auto) 17.0 L, [place] % (Auto) 10.7 H, Eos % (Auto) 0.3, Baso % (Auto) 0.4, Absolute Neuts (auto) 5.4, Absolute Lymphs (auto) 1.30, Nucleated RBC % 0 04/14/22 06:50: Sodium 137, Potassium 3.6, Chloride 109 H, Carbon Dioxide 22.0, Anion Gap 6, BUN 43 H, Creatinine 1.12 H, Estim Creat Clear Calc 30.73, Est GFR (MDRD) Af Amer 60, Est GFR (MDRD) Non-Af 50 L, BUN/Creatinine Ratio 38.4 H, Glucose 130 H, Calcium 7.8 L, Total Bilirubin 0.30, AST 28, ALT 23, Alkaline Phosphatase 62, Total Protein 6.6, Albumin 2.5 L, Globulin 4.1, Albumin/Globulin Ratio 0.6 L Microbiology: Microbiology 04/12/22 20:35 Urine, Clean Catch Urine Culture - Final Presumptive E. 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 04/12/22 20:15 Blood Culture (Wb) - Arm Left Blood Culture - Preliminary GNR lactose natural gas plant technician 04/12/22 20:30 Nasal Secretion SARS-CoV-2 Antigen (Rapid) - Final D/C Instructions Discharge Diet: No restrictions Weight Bearing Status: Full weight bearing Meaningful Use Info Meaningful Use Diagnoses (Choose all that apply): None applicable Discharge Plan Admission Admit Date/Time: 04/12/22 22:00 Primary Reason for Your Visit: urinary tract infection with bacteremia Attending Provider: Aly Pierre Primary Care Provider: Steve Falcon Chi Consult[employer] Providers: Landry Chavez Discharge Orders/Prescriptions Prescriptions: New cephalexin 500 mg tablet 500 mg PO Q8H Qty: 21 0RF Rx Instructions: start on 04/15/22 Continued lisinopril 20 mg tablet 20 mg PO QDAY loratadine [Claritin] 10 mg tablet 10 mg PO DAILY Lipo-Flavonoid Plus 200-100 mg tablet 1 tab PO DAILY vit A,C and G-svsvtk-kdycfpwv 1 EACH tablet 1 ea PO DAILY Discontinued triamterene-hydrochlorothiazid 1 CAP capsule 1 cap PO DAILY Referrals / Follow Up: Steve Falcon Chi, MD [Primary Care Provider] - Within 2 Weeks Disposition Disposition (needs filled in before D/C Order can be placed): Home, Self Care Charges/Coding Visit Charges Inpatient E&M: 77917 Disch Hosp
--- NOTE | 2022-04-14 11:27 | PHA.DC.MC ---
Pharmacy Service has performed discharge medication reconciliation and counseling for this patient. The patient was counseled on the following discharge medications and changes in medications for homegoing were reviewed. 1. KEJIM The Reason for Use, instructions for use, and potential side effects were reviewed for all new medications. The patient's questions regarding all of their medications were answered. The patient was able to verbally demonstrate an understanding of their discharge medications. Home Medications lisinopril 20 mg tablet 20 mg PO QDAY BP 03/28/18 vit A 300 mcg-C 200 mg-E 27 mg-lutein 2 mg and minerals tablet 1 ea PO DAILY EYES 04/02/18 loratadine 10 mg tablet (Claritin) 10 mg PO DAILY allergies 04/19/21 vitamins-lipotropics 200 mg-100 mg tablet (Lipo-Flavonoid Plus) 1 tab PO DAILY supplement 04/01/22 cephalexin 500 mg tablet 500 mg PO Q8H #21 tabs 04/14/22 The patient's discharge medication list was reviewed for discrepancies and discrepancies were resolved.
[2022-04-14 12:07] VITALS: BP 141/64; PULSE 66; RESP 16; TEMP 37
== END 2022-04-14 12:31 | disposition home or self-care (01) | DRG 690 ==
LOC: ED 21:15 → MS3 22:12
PROVIDERS: Nurse Practitioner Family; Admitting Provider Hospitalist; Emergency Provider Emergency Medicine; PCP Family Medicine Geriatric Medicine; Visit Provider Internal Medicine
DX: N30.00 Acute cystitis without hematuria (principal); R78.81 Bacteremia; N17.9 Acute kidney failure, unspecified; N18.31 Chronic kidney disease, stage 3a; E86.0 Dehydration; I12.9 Hypertensive chronic kidney disease with stage 1 through stage 4 chronic kidney disease, or unspecified chronic kidney disease; E78.00 Pure hypercholesterolemia, unspecified; B96.20 Unspecified Escherichia coli [E. coli] as the cause of diseases classified elsewhere; Z79.899 Other long term (current) drug therapy
CPT/HCPCS: 36415; 71045; 80048; 80053; 81001; 82550; 83605; 85025; 85610; 85730; 87040; 87077; 87086; 87088; 87186; 87811; 93005; 97110; 97162; 97166; 97535; 99285; J7030; A4216

== ENCOUNTER → 2022-05-10 | Outpatient (CLI) | payer MEDICARE, SELFPAY | END | disposition home or self-care (01) | PROVIDERS: PCP Family Medicine Geriatric Medicine; Visit Provider Family Medicine Geriatric Medicine | DX: N39.0 Urinary tract infection, site not specified (principal) | CPT/HCPCS: 87086 ==

== ENCOUNTER → 2022-05-10 | Outpatient (CLI) | payer MEDICARE, SELFPAY ==
--- NOTE | 2022-05-10 09:06 | BI_ITS ---
MAMMOGRAPHY - BILATERAL SCREENING REASON FOR EXAM: Female, 77 years old. Routine annual screening examination. PERTINENT HISTORY: Grandmother with breast cancer. History of prior left needle biopsies. TECHNIQUE: Digital bilateral breast bismark (3D mammographic acquisition) in the CC and MLO projections. 2-D mediolateral oblique (MLO) and craniocaudad (CC) views of both breasts were obtained. CAD: Full Field Digital Mammography with Computer Added Detection was performed. COMPARISON: Comparison is made with prior study of 05/07/2021 and 05/06/2020. FINDINGS: Breast Composition: There are scattered areas of fibroglandular density. There are no dominant masses or suspicious calcifications. 2 tissue markers are seen in the axillary region of the left breast. Stable focal area of architectural distortion at the biopsy site. No other significant abnormalities are identified. There has been no significant change since the prior study. BI/SCRN MAMM (CAD)W/BISMARK BILAT IMPRESSION: Stable bilateral screening mammogram. Yearly follow-up mammogram recommended. (A) ASSESSMENT CATEGORY: BIRADS Category 2: Benign. A letter regarding these results will be sent to the patient by the facility within 30 days. Approximately 10% of breast cancers are not detected by mammography. A normal mammogram should not delay biopsy of a clinically suspicious abnormality. [id number] Electronically Signed: Jonny Juan MD at 10:21 EDT ,
== END | disposition home or self-care (01) ==
LOC: OPBI 09:04
PROVIDERS: PCP Family Medicine Geriatric Medicine; Referring Provider Nurse Practitioner Women's Health; Visit Provider Nurse Practitioner Women's Health
DX: Z12.31 Encounter for screening mammogram for malignant neoplasm of breast (principal); Z80.3 Family history of malignant neoplasm of breast; N39.0 Urinary tract infection, site not specified
CPT/HCPCS: 77063; 77067; 87077; 87086; 87088; 87186

== ENCOUNTER → 2022-05-30 | Outpatient (CLI) | payer MEDICARE, SELFPAY ==
[2022-05-30 15:08] LABS: Erythrocyte Sedimentation Rate 72 mm/hr (0-30)
[2022-05-30 15:10] LABS: Absolute Lymphocyte Count 4.86 X10^3/uL (0.83-4.51); Absolute Neutrophil Count 4.6 X10^3/uL (2.0-7.7); Basophil# 0.06 X10^3/uL; Basophil% 0.6 % (0-1); Eosinophil# 0.26 X10^3/uL; Eosinophils% 2.5 % (0-5); Hematocrit 36.6 % (37-47); Lymphocyte # 4.86 X10^3/ul (0.83-4.51); Lymphocyte % 46.5 % (19-41); Mean Corp Hgb Conc 32.8 g/dL (32-36); Mean Corpuscular Hgb 31.1 pg (27.0-32.0); Mean Corpuscular Volume 94.8 fL (81-99); Mean Platelet Vol. 10.6 fl (6.2-12.0); Monocyte# 0.66 X10^3/uL; Monocyte% 6.3 % (0-10); NRBC Flagged by Analyzer 0 % (0-5); Neutrophil # 4.59 X10^3/uL (2.7-7.7); Neutrophil % 43.8 % (47-70); Platelet Count 283 K/mm3 (150-450); RBC Distribution Width CV 13.7 % (11.6-14.6); RBC Distribution Width SD 47.9 fl (35.1-43.9); Red Blood Count 3.86 M/mm3 (4.2-5.4); White Blood Count 10.5 K/mm3 (4.4-11.0)
[2022-05-30 15:34] LABS: ALB/GLOB Ratio 0.9 RATIO (0.9-2.4); AST(SGOT) 20 U/L (15-37); Alanine Aminotransfer ALT/SGPT 25 U/L (13-56); Albumin, Serum 3.9 g/dL (3.2-5.0); Alkaline Phosphatase 74 U/L (45-117); Anion Gap 10 (5-15); BUN 38 mg/dL (7-18); BUN/Creat Ratio 26.8 RATIO (10-20); Chloride 105 mmol/L (98-107); Creatinine, Serum 1.42 mg/dL (0.55-1.02); EST Glomerular Filtration Rate 38 mL/min (>60); Est Glom Filt Rate - Afr Amer 46 mL/min (>60); Globulin 4.5 g/dL (2.2-4.2); Glucose 109 mg/dL (74-106); LDH 234 U/L (84-246); Potassium 4.4 mmol/L (3.5-5.1); Protein, Total 8.4 g/dL (6.4-8.2); Sodium Level 139 mmol/L (136-145)
[2022-06-01 11:08] LABS: Anti-Centromere B Ab <0.2 AI (0.0-0.9); Anti-Chromatin <0.2 AI (0.0-0.9); Anti-Jo <0.2 AI (0.0-0.9); Anti-Scleroderma-70 AB <0.2 AI (0.0-0.9); RNP Ab <0.2 AI (0.0-0.9); SJOGREN'S Anti-SS-A test < 0.2 AI (0.0-0.9); SJOGREN'S Anti-SS-B test < 0.2 AI (0.0-0.9); Smith Ab <0.2 AI (0.0-0.9)
[2022-06-01 15:06] LABS: Anti-dsDNA Ab <1 IU/mL (0-9)
[2022-06-01 17:07] LABS: Endomysial Antibody IgA Negative (Negative)
[2022-06-02 12:35] LABS: Immunoglobulin A 367 mg/dL (64-422); t-Transglutaminase IgA <2 U/mL (0-3)
[2022-06-08 10:08] LABS: Alpha-1-Globulins 0.3 g/dL (0.0-0.4); Alpha-2-Globulins 1.1 g/dL (0.4-1.0); Cytoplasmic Ab (C-ANCA) <1:20 titer (Neg:<1:20); Gamma Globulin 1.1 g/dL (0.4-1.8); Immunoglobulin A 345 mg/dL (64-422); Immunoglobulin E 465 IU/mL (6-495); Immunoglobulin G 1041 mg/dL (586-1602); Immunoglobulin M 87 mg/dL (26-217); PROEL- TOTAL PROTEIN 7.8 g/dL (6.0-8.5)
[2022-06-08 11:25] LABS: Perinuclear Ab (P-ANCA) <1:20 titer (Neg:<1:20)
== END | disposition home or self-care (01) ==
LOC: LAB 14:13
PROVIDERS: PCP Family Medicine Geriatric Medicine; Referring Provider Internal Medicine Gastroenterology; Visit Provider Internal Medicine Gastroenterology
DX: R19.7 Diarrhea, unspecified (principal); M54.41 Lumbago with sciatica, right side
CPT/HCPCS: 36415; 80053; 82784; 82785; 83516; 83615; 84165; 85025; 85652; 86140; 86225; 86235; 86255; 86256; 86334

== ENCOUNTER 2022-06-02 11:19 | Day surgery (SDC) | payer MEDICARE, SELFPAY ==
--- NOTE | 2022-06-02 | COLBX_PTH ---
PATIENT: MAHAMED SHANKS LOC: EN U#:[id number] AGE/SX: 77/F ROOM: RE06/02/[address]: Dr. Sanjeev Trujillo DO : 1945 BED: DIS: 06/02/2022 SPEC #: [id number] RECD: 06/02/22 15:04 STATUS: MAGUI REA #: [id number] JUNITO: 06/02/22 00:[address]: Sanjeev Trujillo DEPT: SURGICAL PATHOLOGY RECD BY: Preet Tyson ENTERED: 06/03/22 10:35 SP TYPE: COLON BX OTHR DR: Dr. Steve Falcon MD Tissues: A - Duodenum, NOS B - Gastric mucous membrane C - Ileum, NOS D - COLON BIOPSY Procedures: Surgery Specimen Level IV HEADER OPERATION: Colonoscopy, EGD ([facility] [place]), biopsies PRE-OP DIAGNOSIS: Diarrhea TISSUE SUBMITTED: A ? Duodenum biopsy, B ? Gastric biopsy, C ? Terminal ileum biopsy, D ? Random colonic biopsies MICROSCOPIC DIAGNOSIS A. Duodenum, biopsy: Fragments of duodenal mucosa, no pathologic diagnosis. B. Gastric biopsy: Moderate gastritis. See microscopic description and comment. C. Terminal ileum, biopsy: Fragments of small intestinal mucosa, no pathologic diagnosis. D. Colon, random biopsy: Fragments of colonic mucosa, no pathologic diagnosis. SJ:marian 06/06/2022 COMMENT B. The results of immunohistochemistry for Helicobacter pylori will be reported separately ([id number]). MICROSCOPIC DESCRIPTION Slides are reviewed. B. The specimen shows fragments of gastric mucosa with chronic inflammatory cell infiltrates in the lamina propria consisting of lymphocytes and plasma cells, consistent with moderate chronic gastritis. GROSS DESCRIPTION A - Received in fixative is one container labeled with the patient's name and designated duodenum biopsy. The specimen consists of two irregular fragments of light campa soft tissue that in aggregate measure 0.6 x 0.3 x 0.1 cm. The specimen is totally submitted in one cassette. B - Received in fixative is one container labeled with the patient's name and designated gastric biopsy. The specimen consists of two irregular fragments of light campa soft tissue that in aggregate measure 0.6 x 0.3 x 0.1 cm. The specimen is totally submitted in one cassette. C - Received in fixative is one container labeled with the patient's name and designated terminal ileum biopsy. The specimen consists of multiple irregular fragments of light campa soft tissue that in aggregate measure 1 x 1 x 0.1 cm. The specimen is totally submitted in one cassette. D - Received in fixative is one container labeled with the patient's name and designated random colonic biopsy. The specimen consists of multiple irregular fragments of light campa soft tissue that in aggregate measure 2.5 x 0.8 x 0.1 cm. The specimen is totally submitted in one cassette. / SJ:rg 06/03/2022 TC:3 CPT: 28985 x4
[2022-06-02 11:40] VITALS: BP 175/73; PULSE 91; RESP 16; TEMP 36.3; O2SAT 99; BMI 42.9
--- NOTE | 2022-06-02 11:59 | PCM.HP.BLA ---
History and Physical Date of Admission: 06/02/22 TATA SHANKS, is a 77 F who presents to the office today for Initial consult. Tata established with this clinic 05.30.22 with referral from PCP for evaluation of urgent slimy diarrhea with preceding abdominal cramping for the last six-eight years. She has stopped eating tomatoes, squash, cucumbers and some other vegetables and she has not had any issues with diarrhea with this dietary change. PMH HTN, hyperlipidemia, macular degeneration. 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 Colonoscopy 04.04.18 finding sessile sigmoid colon polyp; diverticulosis of sigmoid colon. Diagnosis collagenous colitis. ROS Const Constitutional: No anorexia, fatigue, fever(s), weight change or sleep problems Eyes Eyes: No change in vision ENT ENT: No abnormal hearing, difficulty swallowing, mouth lesions, tongue swelling or throat swelling Resp Respiratory: No cough or shortness of breath Cardio Cardiology: No chest pain at rest, chest pain with exertion, shortness of breath or dyspnea on exertion Gastro GI: No difficulty swallowing Genitourinary-Female: No difficulty urinating or burning urination Musc Musculoskeletal: No joint pain, joint swelling, muscle weakness or decreased muscle mass Skin Skin: No hair loss in leg, yellowing of the eye, itchy eyes, rash, skin ulcer or skin swelling Neuro Neurology: No abnormal hearing, abnormal movements, confusion, unsteady gait/balance or memory loss Psych Psychiatric: No anxiety, No confusion and No memory loss Endo Endocrine: No fatigue or weight change Aller/Imm Allergy/Immunologic: No itchy eyes, throat swelling or tongue swelling Epi/Lymp Hematologic/Lymphatic: No easy bleeding, easy bruising or enlarged lymph nodes Exam Const General: cooperative and comfortable Nutritional Appearance: average body habitus and well nourished [facility] Head: normal to inspection Ears: hearing grossly normal bilaterally Nose: external nose normal Face and sinus: normal facial exam Mouth: oral mucosae normal Throat: posterior oropharynx normal Eyes General: appearance normal, both eyes and all related structures Neck Neck: normal visual inspection Chest Chest palpation & inspection: normal inspection of the chest and normal palpation of entire chest wall Resp Effort & Inspection: normal respiratory effort Auscultation: Bilateral: Clear to Auscultation Cardio Palpation: normal PMI Rate: regular rate Rhythm: regular rhythm GI Inspection: normal to inspection Auscultation: normal bowel sounds Percussion: normal to percussion Palpation: no hepatosplenomegaly Skin General: no rashes or lesions noted Neuro General: patient alert Extrem General: normal to inspection Psych Affect: normal affect Quality Reporting Tobacco Screening ([facility] 138) Smoking Status: Never smoker Assessment and Plan Assessment and Plan (1) Diarrhea: ?Status:?Chronic ?Plan: Differential diagnosis for her diarrhea would be more secretory than osmotic.? Although talking to her it seems as if she has elements of both.? She has mostly just osmotic diarrhea with medicines such as metformin as she is tried in the past and certain vegetables that she is eating.? What bothers me is that she still has looser stools and diarrhea despite decreasing her vegetable intake.? It could be irritable bowel syndrome with diarrhea, inflammatory bowel disease, celiac disease, microscopic colitis, lymphocytic colitis, collagenous colitis.? Also due to diagnosis would be infectious colitis.? So we will get inflammatory markers in the blood and in the stool.? We will also get autoimmune labs.? She will undergo an EGD and colonoscopy.? Due to her age I would suggest that we also get imaging with a CT scan of the abdomen pelvis.? She is okay with this plan. This consultation took approximately 35 minutes. ? ? ? Orders: Orders Comprehensive Metabolic Profil Today R19.7 - Diarrhea, unspecified ? CRP Today R19.7 - Diarrhea, unspecified ? LDH Today R19.7 - Diarrhea, unspecified ? Abdomen/Pelvis WITH Contrast Today R19.7 - Diarrhea, unspecified ? CBC W/Diff, Automated Today M54.41 - Lumbago with sciatica, right side, R19.7 - Diarrhea, unspecified ? Erythrocyte Sed Rate Today R19.7 - Diarrhea, unspecified ? MADHU Comprehensive Panel Today R19.7 - Diarrhea, unspecified ? Calprotectin, Stool Today R19.7 - Diarrhea, unspecified ? Stool Lactoferrin/WBC Today R19.7 - Diarrhea, unspecified ? ANCA Today R19.7 - Diarrhea, unspecified ? Celiac Disease Profile Today R19.7 - Diarrhea, unspecified ? Immunoglobulins G/A/M/E Today R19.7 - Diarrhea, unspecified ? JASE + Protein Elect, Serum Today R19.7 - Diarrhea, unspecified ? I have re-examined the patient. There are no clinical changes since date of exam.
[2022-06-02] MEDS: Lactated Ringers 1,000 ML 15 ML IV (12:00)
--- NOTE | 2022-06-02 12:30 | IMM_PTH ---
PATIENT: MAHAMED SHANKS LOC: EN U#:[id number] AGE/SX: 77/F ROOM: RE06/02/[address]: Dr. Sanjeev Trujillo DO : 1945 BED: DIS: 06/02/2022 SPEC #: [id number] RECD: 06/03/22 09:33 STATUS: MAGUI REQ #: [id number] JUNITO: 06/02/22 12:[address]: Sanjeev Trujillo DEPT: IMMUNOHISTOCHEMISTRY RECD BY: Sera Garduno ENTERED: 06/03/22 09:34 SP TYPE: IMMUNO OTHR DR: Dr. Steve Falcon MD Tissues: B - Stomach, NOS Procedures: H Pylori (initial) PHYSICIAN & INSTITUTION [place] [id number] SPECIMEN INFORMATION: Tissue Source: B ? Gastric biopsy Clinical Info: Diarrhea Specimen Number: [id number] CPT code: 09667 METHODOLOGY: Deparaffinized sections of prefer/formalin-fixed tissue or PAP/DQ stained slides are incubated with monoclonal/polyclonal antibodies/oligonucleotide probes. Localization is made via biotin free immunoperoxidase method. Appropriate controls are performed and reacted as expected. Results on target cell population are indicated in the following table: RESULTS: ANTIBODY / CLONE RESULT Block B H Pylori (polyclonal) negative These tests were developed and their performance characteristics determined by [facility]. They may not have been cleared or approved by the U.S. Food and Drug Administration. The FDA has determined that such clearance or approval is not necessary. The above immunohistochemical/dualISH markers are ordered and reviewed by the Pathologist. INTERPRETATION: B. Gastric biopsy: Negative for Helicobacter pylori organisms. GUSTAVO:marian 06/06/2022
[2022-06-02 13:40] VITALS: BP 118/59; BP 175/73; PULSE 81; RESP 18; TEMP 36.8; O2SAT 98
--- NOTE | 2022-06-02 13:41 | OP.EGD_ITS ---
Patient Name: Tata Chawla Procedure Date: 06/02/2022 1:10 PM Date of : 1945 Age: 77 Procedure: Upper GI endoscopy Indications: Functional Dyspepsia, Failure to respond to medical treatment Providers: Sanjeev Trujillo DO Medicines: Monitored Anesthesia Care Patient Profile: This is a 77 year old female. Refer to note in patient chart for documentation of history and physical. Patient has symptoms of chronic abdominal cramping, chronic abdominal distention, chronic dyspepsia and chronic nausea. Complications: No immediate complications. Procedure: Pre-Anesthesia Assessment: - Prior to the procedure, a History and Physical was performed, and patient medications and allergies were reviewed. The patient is competent. The risks and benefits of the procedure and the sedation options and risks were discussed with the patient. All questions were answered and informed consent was obtained. Patient identification and proposed procedure were verified by the physician in the pre-procedure area. Mental Status Examination: alert and oriented. Airway Examination: normal oropharyngeal airway and neck mobility. Respiratory Examination: clear to auscultation. CV Examination: normal. Prophylactic Antibiotics: The patient does not require prophylactic antibiotics. Prior Anticoagulants: The patient has taken no previous anticoagulant or antiplatelet agents. ASA Grade Assessment: II - A patient with mild systemic disease. After reviewing the risks and benefits, the patient was deemed in satisfactory condition to undergo the procedure. The anesthesia plan was to use monitored anesthesia care (MAC). Immediately prior to administration of medications, the patient was re-assessed for adequacy to receive sedatives. The heart rate, respiratory rate, oxygen saturations, blood pressure, adequacy of pulmonary ventilation, and response to care were monitored throughout the procedure. The physical status of the patient was re-assessed after the procedure. After obtaining informed consent, the endoscope was passed under direct vision. Throughout the procedure, the patient's blood pressure, pulse, and oxygen saturations were monitored continuously. The pediatric colonoscope was introduced through the mouth, and advanced to the second part of duodenum. The upper GI endoscopy was accomplished without difficulty. The patient tolerated the procedure well. Scope In: 1:16:48 PM Scope Out: 1:19:50 PM Total Procedure Duration Time 0 hours 3 minutes 2 seconds Findings: The examined esophagus was normal. A medium-sized hiatal hernia was present. Localized moderately erythematous mucosa without bleeding was found in the gastric body. Biopsies were taken with a cold forceps for histology. Verification of patient identification for the specimen was done. Estimated blood loss was minimal. No gross lesions were noted in the second portion of the duodenum. Biopsies were taken with a cold forceps for histology. Verification of patient identification for the specimen was done. Estimated blood loss was minimal. Impression: - Normal esophagus. - Medium-sized hiatal hernia. - Erythematous mucosa in the gastric body. Biopsied. - No gross lesions in the second portion of the duodenum. Biopsied. Recommendation: - Discharge patient to home. - Resume previous diet. - Use sucralfate tablets 1 gram PO BID for 4 weeks. - Continue present medications. Procedure Code(s): --- Professional --- 85261, Esophagogastroduodenoscopy, flexible, transoral; with biopsy, single or multiple CPT copyright 2017 [employer]. All rights reserved. The codes documented in this report are preliminary and upon wick tender review may be revised to meet current compliance requirements. Sanjeev Trujillo DO 06/02/2022 1:40:55 PM This report has been signed electronically. Number of Addenda: 0 Note Initiated On: 06/02/2022 1:10 PM
--- NOTE | 2022-06-02 13:42 | OP.CCLET_ITS ---
06/02/2022 Steve Falcon MD [address] [place] [address] Re : Upper GI endoscopy procedure for Tata Moctezumaris Dear Dr. Falcon This procedure was performed on May. My impressions and recommendations are as follows: Impressions : - Normal esophagus. - Medium-sized hiatal hernia. - Erythematous mucosa in the gastric body. Biopsied. - No gross lesions in the second portion of the duodenum. Biopsied. Recommendations : - Discharge patient to home. - Resume previous diet. - Use sucralfate tablets 1 gram PO BID for 4 weeks. - Continue present medications. My findings are described in the full procedure note, which is enclosed. If I can be of further assistance, please feel free to contact me at . Sincerely, Sanjeev Trujillo, 06/02/2022 1:40:55 PM This report has been signed electronically.
[2022-06-02 13:45] VITALS: BP 118/59; BP 175/73; PULSE 81; RESP 18; O2SAT 98
--- NOTE | 2022-06-02 13:46 | OP.COLON_ITS ---
Patient Name: Tata Chawla Procedure Date: 06/02/2022 1:20 PM Date of : 1945 Age: 77 Procedure: Colonoscopy Indications: Clinically significant diarrhea of unexplained origin Providers: Sanjeev Trujillo DO Medicines: Monitored Anesthesia Care Patient Profile: This is a 77 year old female. Refer to note in patient chart for documentation of history and physical. Patient has symptoms of chronic abdominal cramping, chronic abdominal distention, chronic dyspepsia and chronic nausea. Last Colonoscopy: several years ago. Complications: No immediate complications. Procedure: Pre-Anesthesia Assessment: - Prior to the procedure, a History and Physical was performed, and patient medications and allergies were reviewed. The patient is competent. The risks and benefits of the procedure and the sedation options and risks were discussed with the patient. All questions were answered and informed consent was obtained. Patient identification and proposed procedure were verified by the physician in the pre-procedure area. Mental Status Examination: alert and oriented. Airway Examination: normal oropharyngeal airway and neck mobility. Respiratory Examination: clear to auscultation. CV Examination: normal. Prophylactic Antibiotics: The patient does not require prophylactic antibiotics. Prior Anticoagulants: The patient has taken no previous anticoagulant or antiplatelet agents. ASA Grade Assessment: II - A patient with mild systemic disease. After reviewing the risks and benefits, the patient was deemed in satisfactory condition to undergo the procedure. The anesthesia plan was to use monitored anesthesia care (MAC). Immediately prior to administration of medications, the patient was re-assessed for adequacy to receive sedatives. The heart rate, respiratory rate, oxygen saturations, blood pressure, adequacy of pulmonary ventilation, and response to care were monitored throughout the procedure. The physical status of the patient was re-assessed after the procedure. After I obtained informed consent, the scope was passed under direct vision. Throughout the procedure, the patient's blood pressure, pulse, and oxygen saturations were monitored continuously. The pediatric colonoscope was introduced through the anus and advanced to the terminal ileum. The colonoscopy was performed without difficulty. The patient tolerated the procedure well. The quality of the bowel preparation was good. Scope In: 1:22:21 PM Scope Withdrawal Time 0 hours 11 minutes 2 seconds Scope Out: 1:36:22 PM Total Procedure Duration Time 0 hours 14 minutes 1 second Findings: Hemorrhoids were found on perianal exam. Non-bleeding external and internal hemorrhoids were found during retroflexion. The hemorrhoids were Grade II (internal hemorrhoids that prolapse but reduce spontaneously). An area of moderately congested mucosa was found in the recto-sigmoid colon, in the sigmoid colon and in the descending colon. Biopsies were taken with a cold forceps for histology. Verification of patient identification for the specimen was done. Estimated blood loss was minimal. Multiple small and large-mouthed diverticula were found in the recto-sigmoid colon, sigmoid colon and descending colon. The terminal ileum appeared normal. Biopsies were taken with a cold forceps for histology. Verification of patient identification for the specimen was done. Estimated blood loss was minimal. Impression: - Hemorrhoids found on perianal exam. - Non-bleeding external and internal hemorrhoids. - Congested mucosa in the recto-sigmoid colon, in the sigmoid colon and in the descending colon. Biopsied. - Diverticulosis in the recto-sigmoid colon, in the sigmoid colon and in the descending colon. - The examined portion of the ileum was normal. Biopsied. Recommendation: - Discharge patient to home. - Resume previous diet. - Continue present medications. - Repeat colonoscopy in 5 years for surveillance. Procedure Code(s): --- Professional --- 67798, Colonoscopy, flexible; with biopsy, single or multiple CPT copyright 2017 [employer]. All rights reserved. The codes documented in this report are preliminary and upon automotive light mechanic review may be revised to meet current compliance requirements. Sanjeev Trujillo DO 06/02/2022 1:46:03 PM This report has been signed electronically. Number of Addenda: 0 Note Initiated On: 06/02/2022 1:20 PM
--- NOTE | 2022-06-02 13:47 | OP.CCLET_ITS ---
06/02/2022 Steve Falcon MD [address] [place] [address] Re : Colonoscopy procedure for Tata Chawla Dear Dr. Falcon This procedure was performed on May. My impressions and recommendations are as follows: Impressions : - Hemorrhoids found on perianal exam. - Non-bleeding external and internal hemorrhoids. - Congested mucosa in the recto-sigmoid colon, in the sigmoid colon and in the descending colon. Biopsied. - Diverticulosis in the recto-sigmoid colon, in the sigmoid colon and in the descending colon. - The examined portion of the ileum was normal. Biopsied. Recommendations : - Discharge patient to home. - Resume previous diet. - Continue present medications. - Repeat colonoscopy in 5 years for surveillance. My findings are described in the full procedure note, which is enclosed. If I can be of further assistance, please feel free to contact me at . Sincerely, Sanjeev Trujillo, 06/02/2022 1:46:03 PM This report has been signed electronically.
[2022-06-02 13:50] VITALS: BP 115/62; BP 175/73; PULSE 72; RESP 18; O2SAT 99
[2022-06-02 13:56] VITALS: BP 125/48; BP 175/73; PULSE 65; RESP 18; TEMP 37.6; O2SAT 99
[2022-06-02 14:10] VITALS: BP 175/73
[2022-06-08 08:39] LABS: Pancreatic Elastase, Fecal 96 (>200)
[2022-06-09 10:43] LABS: Calprotectin, Stool <16 ug/g (0-120); Fats, Neutral Normal (.); Fats, Total Normal (.)
== END 2022-06-02 14:28 | disposition home or self-care (01) ==
LOC: EN 11:20 → AC 11:22
PROVIDERS: PCP Family Medicine Geriatric Medicine; Referring Provider Family Medicine Geriatric Medicine; Visit Provider Internal Medicine Gastroenterology
PROC: 0DJD8ZZ Inspection of Lower Intestinal Tract, Via Natural or Artificial Opening Endoscopic (ICD-10-PCS; CPT 45378; principal; 2022-06-02 12:25)
DX: K64.1 Second degree hemorrhoids (principal); K57.30 Diverticulosis of large intestine without perforation or abscess without bleeding; K29.70 Gastritis, unspecified, without bleeding; K44.9 Diaphragmatic hernia without obstruction or gangrene; K30 Functional dyspepsia; R19.7 Diarrhea, unspecified; I10 Essential (primary) hypertension; M19.90 Unspecified osteoarthritis, unspecified site; M54.41 Lumbago with sciatica, right side; Z79.899 Other long term (current) drug therapy
CPT/HCPCS: 45380; 43239; 82274; 82653; 82705; 83630; 83993; 87493; 87506; 88305; 88342; J7120; J2405

== ENCOUNTER → 2022-06-09 | Outpatient (CLI) | payer MEDICARE, SELFPAY ==
--- NOTE | 2022-06-09 12:46 | CT_ITS ---
STUDY: CT ABDOMEN AND PELVIS WITH CONTRAST REASON FOR EXAM: Female, 77 years old. 28 year history of chronic diarrhea. RADIATION DOSAGE (If Supplied By Facility): CTDIvol = ( 18.68 ) mGy, DLP = ( 1157.37 ) mGycm TECHNIQUE: Transaxial images were obtained from the dome of the diaphragm to the symphysis pubis with oral contrast. Oral and amp; IV Readi-CAT and amp; 100mL Isovue-300 was administered. Sagittal and coronal images were reconstructed. Individualized dose optimization techniques were used for this CT. COMPARISON: None. FINDINGS: Calcified granuloma in the right lower lobe. Coronary artery calcification. There is decreased attenuation of the liver consistent with steatosis. Normal gallbladder and extrahepatic biliary system. Normal spleen. Normal pancreas. Normal bilateral adrenal glands. Normal right kidney. Normal left kidney. Normal visualized stomach. Normal small intestine. There are multiple colonic diverticula consistent with diverticulosis. The appendix is visualized and appears normal. There is diffuse atherosclerotic calcification of the abdominal aorta, without a demonstrated aneurysm. Normal inferior vena cava. Normal retroperitoneum. Normal urinary bladder. There is absence of the uterus consistent with a prior hysterectomy. Normal abdominal wall. There are diffuse degenerative changes of the visualized lumbar spine. CT/Abdomen/Pelvis WITH Contrast IMPRESSION: Diffuse fatty infiltration of the liver. Sigmoid diverticulosis. Electronically Signed: Jonny Juan MD at 14:37 EDT ,
== END | disposition home or self-care (01) ==
LOC: CT 12:42
PROVIDERS: PCP Family Medicine Geriatric Medicine; Referring Provider Internal Medicine Gastroenterology; Visit Provider Internal Medicine Gastroenterology
DX: R19.7 Diarrhea, unspecified (principal); K76.0 Fatty (change of) liver, not elsewhere classified; K57.30 Diverticulosis of large intestine without perforation or abscess without bleeding
CPT/HCPCS: 74177; Q9967

== ENCOUNTER → 2022-09-09 | Outpatient (CLI) | payer MEDICARE, SELFPAY ==
[2022-09-09 13:13] LABS: Absolute Lymphocyte Count 3.54 X10^3/uL (0.83-4.51); Absolute Neutrophil Count 3.1 X10^3/uL (2.0-7.7); Basophil# 0.06 X10^3/uL; Basophil% 0.8 % (0-1); Eosinophil# 0.23 X10^3/uL; Hematocrit 38.2 % (37-47); Hemoglobin 12.5 g/dL (12.0-15.0); Lymphocyte # 3.54 X10^3/ul (0.83-4.51); Lymphocyte % 46.6 % (19-41); Mean Corp Hgb Conc 32.7 g/dL (32-36); Mean Corpuscular Hgb 31.4 pg (27.0-32.0); Mean Platelet Vol. 10.3 fl (6.2-12.0); Monocyte# 0.62 X10^3/uL; Monocyte% 8.2 % (0-10); NRBC Flagged by Analyzer 0 % (0-5); Neutrophil # 3.12 X10^3/uL (2.7-7.7); Platelet Count 273 K/mm3 (150-450); RBC Distribution Width CV 13.5 % (11.6-14.6); RBC Distribution Width SD 47.7 fl (35.1-43.9); Red Blood Count 3.98 M/mm3 (4.2-5.4); White Blood Count 7.6 K/mm3 (4.4-11.0)
[2022-09-09 13:26] LABS: Vitamin D,25 Hydroxy 54.1 ng/mL
[2022-09-09 13:47] LABS: AST(SGOT) 21 U/L (15-37); Alanine Aminotransfer ALT/SGPT 27 U/L (13-56); Alkaline Phosphatase 64 U/L (45-117); Anion Gap 8 (5-15); BUN 38 mg/dL (7-18); BUN/Creat Ratio 30.4 RATIO (10-20); Calcium,Total 9.9 mg/dL (8.5-10.1); Chloride 106 mmol/L (98-107); Creatinine, Serum 1.25 mg/dL (0.55-1.02); EST Glomerular Filtration Rate 44 mL/min (>60); Est Glom Filt Rate - Afr Amer 53 mL/min (>60); Globulin 4.1 g/dL (2.2-4.2); Glucose 115 mg/dL (74-106); Potassium 4.8 mmol/L (3.5-5.1); Protein, Total 8.1 g/dL (6.4-8.2); Sodium Level 138 mmol/L (136-145); Thyroid Stim Hormone (TSH) 2.65 uIU/mL (0.358-3.74)
== END | disposition home or self-care (01) ==
LOC: POLAB3 10:05
PROVIDERS: PCP Family Medicine Geriatric Medicine; Visit Provider Family Medicine Geriatric Medicine
DX: I10 Essential (primary) hypertension (principal); E55.9 Vitamin D deficiency, unspecified
CPT/HCPCS: 36415; 80053; 82306; 84443; 85025

== ENCOUNTER → 2022-10-03 | Outpatient (CLI) | payer MEDICARE, SELFPAY ==
--- NOTE | 2022-10-03 11:42 | CT_ITS ---
EXAM: CT HEAD WITHOUT INTRAVENOUS CONTRAST CLINICAL INDICATION: Low back pain. TECHNIQUE: Multiple axial images were obtained of the head without intravenous contrast. This CT exam was performed using one or more of the following dose reduction techniques: automated exposure control, adjustment of the mA and/or kV according to patient size, and/or use of iterative reconstruction technique. This report was created using [employer] report generation technology. RADIATION DOSE: CTDIvol = 44.99 mGy, DLP = 779.24 mGy-cm COMPARISON: CT head without contrast 04/17/2019. FINDINGS: BRAIN AND EXTRA-AXIAL SPACES: Unremarkable. No intra- or extra-axial hemorrhage. No evidence of acute infarct. No intracranial mass or mass effect. There is preservation of the abreu/white matter interface. Posterior fossa structures are unremarkable. Ventricles are appropriate for age. No hydrocephalus. Basal cisterns are patent. BONES/JOINTS: Unremarkable. No discrete lytic or blastic abnormalities. SINUSES: Unremarkable as visualized. Clear. MASTOID AIR CELLS: Unremarkable. Clear. ORBITS: Visualized globes, extraocular muscles, optic nerves and retrobulbar fat appear unremarkable. CT/Brain/Head without Contrast IMPRESSION: Negative head/brain CT without intravenous contrast and unchanged when compared to 04/17/2019. Electronically Signed: Emmanuel Reed MD at 12:09 EST ,
--- NOTE | 2022-10-03 12:05 | RAD_ITS ---
EXAM: XR RIGHT KNEE COMPLETE, 4 OR MORE VIEWS CLINICAL INDICATION: BILATERAL KNEE PAIN TECHNIQUE: Four or more views of the right knee. This report was created using [employer] report generation technology. COMPARISON: None. FINDINGS: BONES/JOINTS: Intact metallic knee arthroplasty. The femoral component and tibial component of the metallic arthroplasty remain in good anatomic alignment. Normal metallic arthroplasty of the patellofemoral articulation. SOFT TISSUES: Small round calcific densities in the suprapatellar bursa are suspicious for calcified loose bodies. No soft tissue swelling or gas. RAD/Knee 4 or More Views IMPRESSION: 1. No acute findings in the right knee. 2. Intact right metallic knee arthroplasty. 3. Small calcified loose bodies in the suprapatellar bursa. Electronically Signed: Emmanuel Reed MD at 12:36 EST ,
--- NOTE | 2022-10-03 12:05 | RAD_ITS ---
EXAM: XR LUMBOSACRAL SPINE, 4 OR 5 VIEWS CLINICAL INDICATION: Lower back pain. TECHNIQUE: Frontal, lateral and bilateral oblique views of the lumbar spine. This report was created using [employer] report generation technology. COMPARISON: 03/19/2020. FINDINGS: VERTEBRAE: 6 lumbar type vertebral bodies due to lumbarization of S1. Mild degenerative anterolisthesis of L4 on L5 is unchanged. DISC SPACES: Degenerative disc space height narrowing with endplate sclerosis at L1-L2, L2-L3, L3-L4 and L4-L5 disc space levels. These are unchanged. GASTROINTESTINAL TRACT: Unremarkable as visualized. Included bowel gas pattern is non-obstructive. RAD/L/S Spine Min 4 Views IMPRESSION: 1. No acute findings in the lumbar spine. 2. 6 lumbar type vertebral bodies due to lumbarization of S1. 3. Mild degenerative disc space height narrowing with endplate sclerosis at L1-L2 down to L4-L5 disc space levels are unchanged. 4. Mild degenerative anterolisthesis of L5 on L5 is unchanged. Electronically Signed: Emmanuel Reed MD at 12:40 EST ,
--- NOTE | 2022-10-03 12:05 | RAD_ITS ---
STUDY: X-RAY - LEFT ELBOW REASON FOR EXAM: Female, 77 years old. LEFT ELBOW PAIN TECHNIQUE: 3 view(s) of the elbow. COMPARISON: None. FINDINGS: Normal visualized humerus, radius and ulna. There is degenerative arthrosis of the radiocapitellar and ulnotrochlear articulations. Calcification of the articular cartilage. RAD/Elbow min 3 Views IMPRESSION: Arthrosis of the elbow, as described above. Electronically Signed: Jonny Juan MD at 15:46 EST ,
--- NOTE | 2022-10-03 12:05 | RAD_ITS ---
EXAM: XR LEFT SHOULDER COMPLETE, 2 OR MORE VIEWS CLINICAL INDICATION: LEFT ELBOW PAIN TECHNIQUE: Two or more views of the left shoulder. This report was created using [employer] report generation technology. COMPARISON: 09/18/2019. FINDINGS: BONES/JOINTS: Marginal osteophytes of the glenoid rim are unchanged. Faint calcifications overlying the AC joint are unchanged. No acute fracture. No subluxation. Normal alignment. No sclerotic or destructive changes observed. SOFT TISSUES: Unremarkable. No soft tissue swelling or gas. No radiopaque foreign body. OTHER FINDINGS: Subacromial calcifications are unchanged. RAD/Shoulder min 2 Views IMPRESSION: 1. No acute findings in the left shoulder. 2. No significant interval change when compared to 09/18/2019. Electronically Signed: Emmanuel Reed MD at 12:33 EST ,
--- NOTE | 2022-10-03 12:05 | RAD_ITS ---
STUDY: X-RAY - PELVIS REASON FOR EXAM: Female, 77 years old. Lower back pain. TECHNIQUE: One view of the pelvis was obtained. COMPARISON: None. FINDINGS: There is a non-specific bowel gas pattern. Normal visualized soft tissue structures. There are linear calcifications in the musculature adjacent to both ischial tuberosities. Question myositis ossificans. Degenerative changes of the lower lumbar spine. There is narrowing with cortical sclerosis and osteophyte formation of the sacroiliac joint consistent with degenerative osteoarthritic changes. Normal sacrum and iliac wings. Normal visualized bilateral superior and inferior pubic rami. There are degenerative changes of the pubic symphysis with articular narrowing and sclerosis. Normal ischial tuberosities. Normal visualized right femoral head. There is osteoarthritic spur formation of the right acetabular rim. There is mild articular joint space narrowing of the right hip. Normal visualized left femoral head. Normal left acetabulum. There is mild articular joint space narrowing of the left hip. RAD/Pelvis 1 or 2 Views IMPRESSION: Degenerative changes of the pelvis and hips. Electronically Signed: Himanshu Desai DO at 17:15 EST ,
--- NOTE | 2022-10-03 12:05 | RAD_ITS ---
EXAM: XR LEFT KNEE COMPLETE, 4 OR MORE VIEWS CLINICAL INDICATION: PAIN TECHNIQUE: Four or more views of the left knee. This report was created using [employer] report generation technology. COMPARISON: None. FINDINGS: BONES/JOINTS: Femoral component and tibial component of the metallic knee arthroplasty are in good anatomic alignment. Intact metallic arthroplasty in the patellofemoral articulation. Mild osteopenia underneath the lateral and medial tibial plateau. No acute fracture. No sclerotic or destructive changes observed. SOFT TISSUES: Unremarkable. No soft tissue swelling or gas. No radiopaque foreign body. RAD/Knee 4 or More Views IMPRESSION: 1. No acute findings in the left knee. 2. Intact left metallic knee arthroplasty. 3. Osteopenia underneath the lateral and medial tibial plateau. Electronically Signed: Emmanuel Reed MD at 12:38 EST ,
== END | disposition home or self-care (01) ==
LOC: CT 11:34
PROVIDERS: PCP Family Medicine Geriatric Medicine; Visit Provider Family Medicine Geriatric Medicine
DX: M54.50 Low back pain, unspecified (principal); M25.522 Pain in left elbow; M25.561 Pain in right knee; S09.90XA Unspecified injury of head, initial encounter
CPT/HCPCS: 70450; 72110; 72170; 73030; 73080; 73564

== ENCOUNTER → 2023-03-20 | Outpatient (CLI) | payer MEDICARE, SELFPAY ==
[2023-03-20 12:09] LABS: Absolute Lymphocyte Count 3.95 X10^3/uL (0.83-4.51); Absolute Neutrophil Count 5.1 X10^3/uL (2.0-7.7); Basophil# 0.07 X10^3/uL; Basophil% 0.7 % (0-1); Eosinophil# 0.16 X10^3/uL; Eosinophils% 1.6 % (0-5); Hematocrit 34.2 % (37-47); Hemoglobin 10.7 g/dL (12.0-15.0); Lymphocyte # 3.95 X10^3/ul (0.83-4.51); Mean Corp Hgb Conc 31.3 g/dL (32-36); Mean Corpuscular Hgb 31.6 pg (27.0-32.0); Mean Corpuscular Volume 100.9 fL (81-99); Mean Platelet Vol. 10.6 fl (6.2-12.0); Monocyte# 0.84 X10^3/uL; Monocyte% 8.3 % (0-10); NRBC Flagged by Analyzer 0 % (0-5); Neutrophil # 5.07 X10^3/uL (2.7-7.7); Platelet Count 245 K/mm3 (150-450); RBC Distribution Width CV 13.8 % (11.6-14.6); RBC Distribution Width SD 51.6 fl (35.1-43.9); Red Blood Count 3.39 M/mm3 (4.2-5.4); White Blood Count 10.1 K/mm3 (4.4-11.0)
[2023-03-20 12:28] LABS: Vitamin D,25 Hydroxy 38.4 ng/mL
[2023-03-20 12:34] LABS: ALB/GLOB Ratio 0.9 RATIO (0.9-2.4); AST(SGOT) 21 U/L (15-37); Alanine Aminotransfer ALT/SGPT 36 U/L (13-56); Albumin, Serum 3.5 g/dL (3.2-5.0); Alkaline Phosphatase 75 U/L (45-117); Anion Gap 3 (5-15); BUN 52 mg/dL (7-18); BUN/Creat Ratio 38.8 RATIO (10-20); Chloride 113 mmol/L (98-107); Creatinine, Serum 1.34 mg/dL (0.55-1.02); EST Glomerular Filtration Rate 40 mL/min (>60); Est Glom Filt Rate - Afr Amer 49 mL/min (>60); Globulin 3.8 g/dL (2.2-4.2); Glucose 97 mg/dL (74-106); Potassium 5.4 mmol/L (3.5-5.1); Protein, Total 7.3 g/dL (6.4-8.2); Sodium Level 139 mmol/L (136-145); Thyroid Stim Hormone (TSH) 2.87 uIU/mL (0.358-3.74)
== END | disposition home or self-care (01) ==
LOC: POLAB3 10:57
PROVIDERS: PCP Family Medicine Geriatric Medicine; Visit Provider Family Medicine Geriatric Medicine
DX: I10 Essential (primary) hypertension (principal); E55.9 Vitamin D deficiency, unspecified
CPT/HCPCS: 36415; 80053; 82306; 84443; 85025

== ENCOUNTER → 2023-03-23 | Outpatient (CLI) | payer MEDICARE, SELFPAY ==
[2023-03-23 11:57] LABS: Absolute Lymphocyte Count 2.92 X10^3/uL (0.83-4.51); Absolute Neutrophil Count 4.4 X10^3/uL (2.0-7.7); Basophil# 0.06 X10^3/uL; Basophil% 0.7 % (0-1); Eosinophil# 0.18 X10^3/uL; Eosinophils% 2.1 % (0-5); Hematocrit 35.2 % (37-47); Hemoglobin 11.1 g/dL (12.0-15.0); Lymphocyte # 2.92 X10^3/ul (0.83-4.51); Lymphocyte % 34.8 % (19-41); Mean Corp Hgb Conc 31.5 g/dL (32-36); Mean Corpuscular Hgb 31.7 pg (27.0-32.0); Mean Corpuscular Volume 100.6 fL (81-99); Mean Platelet Vol. 10.5 fl (6.2-12.0); Monocyte# 0.71 X10^3/uL; Monocyte% 8.5 % (0-10); NRBC Flagged by Analyzer 0 % (0-5); Neutrophil % 52.5 % (47-70); Platelet Count 244 K/mm3 (150-450); RBC Distribution Width CV 13.8 % (11.6-14.6); RBC Distribution Width SD 50.6 fl (35.1-43.9); RET-HE 34.1 pg (30-35); Reticulocyte Count 2.25 % (0.5-1.5); White Blood Count 8.4 K/mm3 (4.4-11.0)
[2023-03-23 12:06] LABS: Vitamin B12 239 pg/mL (211-911)
[2023-03-23 12:17] LABS: Anion Gap 8 (5-15); BUN 55 mg/dL (7-18); BUN/Creat Ratio 37.9 RATIO (10-20); Calcium,Total 8.9 mg/dL (8.5-10.1); Chloride 107 mmol/L (98-107); Creatinine, Serum 1.45 mg/dL (0.55-1.02); EST Glomerular Filtration Rate 37 mL/min (>60); Est Glom Filt Rate - Afr Amer 45 mL/min (>60); Ferritin 151 ng/mL (8-252); Glucose 95 mg/dL (74-106); Iron Binding Capacity,Total 292 ug/dL (250-450); Potassium 5.2 mmol/L (3.5-5.1); Sodium Level 138 mmol/L (136-145)
== END | disposition home or self-care (01) ==
PROVIDERS: PCP Family Medicine Geriatric Medicine; Visit Provider Family Medicine Geriatric Medicine
DX: D50.9 Iron deficiency anemia, unspecified (principal)
CPT/HCPCS: 36415; 80048; 82607; 82728; 82746; 83550; 85025; 85045

== ENCOUNTER → 2023-03-29 | Outpatient (CLI) | payer MEDICARE, SELFPAY ==
[2023-03-29 11:11] LABS: Anion Gap 7 (5-15); BUN 94 mg/dL (7-18); BUN/Creat Ratio 49.2 RATIO (10-20); Calcium,Total 8.9 mg/dL (8.5-10.1); Chloride 111 mmol/L (98-107); Creatinine, Serum 1.91 mg/dL (0.55-1.02); EST Glomerular Filtration Rate 27 mL/min (>60); Est Glom Filt Rate - Afr Amer 33 mL/min (>60); Glucose 123 mg/dL (74-106); Potassium 4.5 mmol/L (3.5-5.1); Sodium Level 139 mmol/L (136-145)
== END | disposition home or self-care (01) ==
LOC: LAB 10:32
PROVIDERS: PCP Family Medicine Geriatric Medicine; Referring Provider Family Medicine Geriatric Medicine; Visit Provider Family Medicine Geriatric Medicine
DX: D50.9 Iron deficiency anemia, unspecified (principal); E87.6 Hypokalemia
CPT/HCPCS: 36415; 80048; 82274

== ENCOUNTER → 2023-04-05 | Outpatient (CLI) | payer MEDICARE, SELFPAY ==
[2023-04-05 10:06] LABS: Anion Gap 6 (5-15); BUN 61 mg/dL (7-18); BUN/Creat Ratio 38.6 RATIO (10-20); Calcium,Total 8.9 mg/dL (8.5-10.1); Chloride 109 mmol/L (98-107); Creatinine, Serum 1.58 mg/dL (0.55-1.02); EST Glomerular Filtration Rate 33 mL/min (>60); Est Glom Filt Rate - Afr Amer 40 mL/min (>60); Glucose 122 mg/dL (74-106); Potassium 5.2 mmol/L (3.5-5.1); Sodium Level 138 mmol/L (136-145)
== END | disposition home or self-care (01) ==
PROVIDERS: PCP Family Medicine Geriatric Medicine; Referring Provider Family Medicine Geriatric Medicine; Visit Provider Family Medicine Geriatric Medicine
DX: R89.9 Unspecified abnormal finding in specimens from other organs, systems and tissues (principal)
CPT/HCPCS: 36415; 80048

== ENCOUNTER → 2023-04-06 | Outpatient (CLI) | payer MEDICARE, SELFPAY ==
[2023-04-06 17:22] LABS: Anion Gap 9 (5-15); BUN 73 mg/dL (7-18); BUN/Creat Ratio 36.3 RATIO (10-20); Calcium,Total 9.1 mg/dL (8.5-10.1); Chloride 112 mmol/L (98-107); Creatinine, Serum 2.01 mg/dL (0.55-1.02); EST Glomerular Filtration Rate 25 mL/min (>60); Est Glom Filt Rate - Afr Amer 31 mL/min (>60); Glucose 129 mg/dL (74-106); Sodium Level 140 mmol/L (136-145)
== END | disposition home or self-care (01) ==
LOC: POLAB3 14:24
PROVIDERS: PCP Family Medicine Geriatric Medicine; Visit Provider Family Medicine Geriatric Medicine
DX: E87.5 Hyperkalemia (principal)
CPT/HCPCS: 36415; 80048

== ENCOUNTER → 2023-04-25 | Outpatient (CLI) | payer MEDICARE, SELFPAY ==
[2023-04-25 11:39] LABS: Absolute Lymphocyte Count 3.12 X10^3/uL (0.83-4.51); Absolute Neutrophil Count 5.3 X10^3/uL (2.0-7.7); Basophil# 0.07 X10^3/uL; Basophil% 0.7 % (0-1); Eosinophil# 0.35 X10^3/uL; Eosinophils% 3.6 % (0-5); Hematocrit 36.7 % (37-47); Hemoglobin 11.5 g/dL (12.0-15.0); Lymphocyte # 3.12 X10^3/ul (0.83-4.51); Lymphocyte % 32.5 % (19-41); Mean Corp Hgb Conc 31.3 g/dL (32-36); Mean Corpuscular Volume 98.9 fL (81-99); Mean Platelet Vol. 10.1 fl (6.2-12.0); Monocyte% 7.3 % (0-10); NRBC Flagged by Analyzer 0 % (0-5); Neutrophil # 5.34 X10^3/uL (2.7-7.7); Neutrophil % 55.7 % (47-70); Platelet Count 259 K/mm3 (150-450); RBC Distribution Width CV 13.5 % (11.6-14.6); RBC Distribution Width SD 48.4 fl (35.1-43.9); Red Blood Count 3.71 M/mm3 (4.2-5.4); White Blood Count 9.6 K/mm3 (4.4-11.0)
[2023-04-25 11:53] LABS: Anion Gap 6 (5-15); BUN 42 mg/dL (7-18); BUN/Creat Ratio 30.9 RATIO (10-20); Calcium,Total 9.7 mg/dL (8.5-10.1); Chloride 113 mmol/L (98-107); Creatinine, Serum 1.36 mg/dL (0.55-1.02); EST Glomerular Filtration Rate 40 mL/min (>60); Est Glom Filt Rate - Afr Amer 48 mL/min (>60); Glucose 111 mg/dL (74-106); Sodium Level 140 mmol/L (136-145)
== END | disposition home or self-care (01) ==
LOC: POLAB3 11:10
PROVIDERS: PCP Family Medicine Geriatric Medicine; Visit Provider Family Medicine Geriatric Medicine
DX: D50.9 Iron deficiency anemia, unspecified (principal); E87.6 Hypokalemia
CPT/HCPCS: 36415; 80048; 85025

== ENCOUNTER → 2023-05-11 | Outpatient (CLI) | payer MEDICARE, SELFPAY ==
--- NOTE | 2023-05-11 10:00 | BI_ITS ---
MAMMOGRAPHY - BILATERAL SCREENING REASON FOR EXAM: Female, 78 years old. Routine annual screening examination. PERTINENT HISTORY: Grandmother with breast cancer. History of remote left-sided breast biopsies. TECHNIQUE: Digital bilateral breast bismark (3D mammographic acquisition) in the CC and MLO projections. 2-D mediolateral oblique (MLO) and craniocaudad (CC) views of both breasts were obtained. CAD: Full Field Digital Mammography with Computer Added Detection was performed. COMPARISON: Comparison is made with prior study May 10, 2022 and May 07, 2021. FINDINGS: Breast Composition: There are scattered areas of fibroglandular density. There are no dominant masses or suspicious calcifications. Once again, 2 tissue markers are seen in the axillary region of the left breast. Stable focal area of architectural distortion at the biopsy site. No other significant abnormalities are identified. There has been no significant change since the prior study. BI/SCRN MAMM (CAD)W/BISMARK BILAT IMPRESSION: Stable bilateral screening mammogram. Yearly follow-up mammogram recommended. (A) ASSESSMENT CATEGORY: BIRADS Category 2: Benign. A letter regarding these results will be sent to the patient by the facility within 30 days. Approximately 10% of breast cancers are not detected by mammography. A normal mammogram should not delay biopsy of a clinically suspicious abnormality. [id number] Electronically Signed: Jonny Juan MD at 12:02 EDT ,
== END | disposition home or self-care (01) ==
LOC: OPBI 09:59
PROVIDERS: PCP Family Medicine Geriatric Medicine; Referring Provider Nurse Practitioner Women's Health; Visit Provider Nurse Practitioner Women's Health
DX: Z12.31 Encounter for screening mammogram for malignant neoplasm of breast (principal)
CPT/HCPCS: 77063; 77067

== ENCOUNTER 2023-05-17 20:03 | Inpatient (IN) | payer MEDICARE, SELFPAY ==
[2023-05-17 20:04] VITALS: BP 113/89; PULSE 70; RESP 18; TEMP 36.6; O2SAT 100
[2023-05-17 20:07] VITALS: BMI 44.4
[2023-05-17 20:29] VITALS: BP 152/49; PULSE 80; RESP 15; O2SAT 98
--- NOTE | 2023-05-17 22:02 | EKG12_ITS ---
Test Reason : DYSRHYTHMIA Blood Pressure : / mmHG Vent. Rate : 071 BPM Atrial Rate : 071 BPM P-R Int : 222 ms QRS Dur : 092 ms QT Int : 372 ms P-R-T Axes : 021 010 037 degrees QTc Int : 404 ms Sinus rhythm with 1st degree A-V block Low voltage QRS Cannot rule out Anterior infarct , age undetermined Abnormal ECG Confirmed by BONITA BOWDEN, CYNTHIA ([id number]), staff editor ANGEL COMBS ([id number]) on 05/23/2023 11:15:28 AM Referred By: SENDY Confirmed By:JEANINE MESA MD
--- NOTE | 2023-05-17 22:02 | CT_ITS ---
INDICATION: head trauma EXAMINATION: CT BRAIN - CT Head or Brain W/O Contrast Injection TECHNIQUE: Multiple axial images were obtained of the head with sagittal and coronal reconstructed images. Individualized dose optimization techniques were used for this CT. IV contrast dosage and agent: None. COMPARISON: 10/03/2022 CT. FINDINGS: BRAIN PARENCHYMA: No evidence of an acute infarct or intracranial hemorrhage. No evidence of a mass. Stable chronic bilateral basal ganglia lacunar infarcts. White matter changes consistent with mild chronic microvascular disease. CSF SPACES: The ventricles, sulci and subarachnoid cisterns are appropriate for age. CALVARIUM, SKULL BASE, PARANASAL SINUSES AND MASTOID AIR CELLS: No fracture. Mastoid air cells are clear. Visualized paranasal sinuses are unremarkable. ORBITS: The globes, extraocular muscles, optic nerves and retrobulbar fat are unremarkable. CT/Brain/Head without Contrast IMPRESSION: No fracture or acute intracranial abnormality. Electronically Signed: Waldemar Baxter DO at 23:36 EDT ,
[2023-05-17] MEDS: Morphine 4 MG/ML Syringe IV (22:46)
--- NOTE | 2023-05-17 23:00 | RAD_ITS ---
INDICATION: pain,. trauma EXAMINATION/TECHNIQUE: X-RAY - LEFT XR Knee 3 Views COMPARISON: 10/03/2022. FINDINGS: SOFT TISSUES: Suprapatellar effusion. BONES/JOINTS: No fracture or dislocation. Total knee arthroplasty hardware is intact and appears stable to the prior exam. No erosive changes. RAD/Knee 3 Views IMPRESSION: No fracture or dislocation. Electronically Signed: Waldemar Baxter DO at 23:21 EDT ,
--- NOTE | 2023-05-17 23:05 | EDS_ITS ---
HPI History of Present Illness Chief Complaint: Syncope Informant: patient Narrative Narrative: Patient is an 78-year-old female with history of chronic back pain, exocrine pancreatic insufficiency and stomach issues presenting after a syncopal episode and a fall. Patient states that she felt crampy abdominal pain like she was going to have a bowel movement and she went to the bathroom. She was sitting on the toilet when she had increased pain and cramping of her abdomen. She then felt really hot and sweaty. During the second episode of feeling hot and sweaty she passed out and fell and hit her head and her left knee. She woke up when she hit the ground. She has a history of syncope. She states she was in her normal state of health earlier in the day. She denies any black or blood in her stool. She notes she recently had a capsule study ordered by her PCP because of these ongoing stomach issues. She does voice frustration that she is not on any medicines for her stomach besides an antacid. She is mostly complaining of left knee pain at this time. 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 She did put some pain patches on prior to arrival. She states she normally takes Tylenol for her pain. No other complaints or concerns at this time. [facility] Medical History Abdominal cramping Ambulates with cane Arthritis Carpal tunnel syndrome Chest pain Chronic cough CKD (chronic kidney disease) DDD (degenerative disc disease), lumbar Dehydration Hypertension IBS (irritable bowel syndrome) Injury of back Leg cramps Macular degeneration Non-smoker Osteoarthritis Seasonal allergies Urinary incontinence UTI (urinary tract infection) Wears dentures Home Medications lisinopril 20 mg tablet 20 mg PO QDAY BP 03/28/18 [History Last Taken 06/02/22 09:00] vit A 300 mcg-C 200 mg-E 27 mg-lutein 2 mg and minerals tablet 1 ea PO DAILY EYES 04/02/18 [History Last Taken 04/12/22] acetaminophen 650 mg tablet,extended release 1,300 mg PO Q12H 05/30/22 [History Last Taken Unknown] ascorbic acid (vitamin C) 500 mg tablet (Vitamin C) 500 mg PO DAILY 05/30/22 [History Last Taken Unknown] calcium 600 mg capsule 600 mg PO DAILY 05/30/22 [History Last Taken Unknown] cholecalciferol (vitamin D3) 100 mcg (4,000 unit) capsule 100 mcg PO DAILY 05/30/22 [History Last Taken Unknown] triamterene 37.5 mg-hydrochlorothiazide 25 mg tablet 1 tab PO DAILY 05/18/23 [History Last Taken Unknown] Allergy/AdvReac Type Severity Reaction Status Date / Time latex Allergy Hives Verified 05/17/23 20:08 Family History Son Colon cancer Other Arthritis Hypertension Surgical History History of breast biopsy History of carpal tunnel surgery History of colonoscopy History of hysterectomy History of knee joint replacement History of tonsillectomy Social History Smoking Status: Never smoker alcohol intake: never substance use type: does not use caffeine: Yes what type of physical activity do you participate in: walking frequency: 1-2 times per week seatbelt use: always do you feel safe at home: Yes additional social history: single- retired ROS ROS ED Constitutional Constitutional ED: Reports sweats and other Details: Syncopal episode ; Denies chills or fever(s) Eyes Eyes: Denies blurry vision or change in vision Cardiovascular Cardiovascular: Denies chest pain or palpitations Respiratory/Chest Respiratory/Chest: Denies cough or dyspnea Gastrointestinal Gastrointestinal: Reports abdominal pain and diarrhea; Denies nausea or vomiting Musculoskeletal Musculoskeletal: Reports back pain and other Details: Left knee pain ; Denies arthralgias Integumentary Reports Abrasions Neurologic Neurologic: Denies headache(s), paresthesias or weakness Hematologic/Lymphatic Hematologic/Lymphatic: Denies easy bleeding or easy bruising EXAM Physical Exam Const Vital Signs: 05/17/23 20:04 05/17/23 20:24 05/17/23 20:29 Temperature 97.9 F Temperature Source Temporal Pulse Rate 70 80 Respiratory Rate 18 15 Respiratory Effort Normal Non-Labored Respiratory Pattern Normal Blood Pressure 113/89 H 152/49 H Blood Pressure Mean 97 83 Pulse Ox 100 98 Oxygen Delivery Method Room Air Room Air 05/18/23 00:05 Temperature Temperature Source Pulse Rate 66 Respiratory Rate 14 Respiratory Effort Respiratory Pattern Blood Pressure 144/52 H Blood Pressure Mean 82 Pulse Ox 100 Oxygen Delivery Method Room Air Positive well nourished and well developed General Appearance ED: well developed and NAD HEENT Reports TM's clear and moist mucous membranes Tympanic Membrane ED: Yes TM's clear Eyes PERRL and EOMs intact bilaterally Neck supple and no JVD General: Negative for tenderness Chest Wall inspection of chest normal and palpation of chest normal Resp normal respiratory effort and clear to auscultation bilaterally Cardio regular rate, regular rhythm and no murmurs GI normal to inspection, nondistended, normoactive bowel sounds and non-tender Palpation: Negative for guarding Back/Spine no CVA tenderness Thoracic Spine / Upper Back: Negative for thoracic spinal tenderness Lumbar Spine / Lower Back: Negative for lumbar spinal tenderness Extremity Extremity Narrative: Diffuse tenderness to palpation of the left knee. Extensor mechanism intact. No obvious deformity however patient does not really tolerate range of motion due to pain. General Extremety ED: Yes tenderness; Negative for edema General Extremity: Negative for edema Neuro oriented x3 Sensorium / Orientation: alert Motor Exam: general weakness Psych mental status grossly normal Skin Skin Narrative: Superficial abrasion to the right forehead, no active bleeding at this time MDM MDM MDM Narrative Medical decision making narrative: Patient is evaluated after syncopal episode while in the toilet. She did hit her head and is complaining of knee pain. Differential includes cardiac arrhythmia, intracranial hemorrhage, periprosthetic fracture, electrolyte abnormality and vasovagal syncope. Work-up including EKG, CT of the brain, x- ray of the knee as well as some basic labs obtained. Patient is given 4 mg IV morphine for pain control. She states he is never had it before and was hesitant to receive any non- Tylenol medication. Patient only had mild pain improvement with the morphine. She is redosed. She does have CKD and I am hesitant to give her NSAIDs at this time. X-ray of the knee reviewed by myself as well as radiology does not show any acute dislocation or periprosthetic fracture. Patient does not have any hip pain on logroll and I do not think she requires a hip x-ray. Her urinalysis does show positive nitrates with 2+ bacteria and 0-5 white blood cells. There is no contamination as this was a straight cath sample. I will send for culture and treat for UTI given her leukocytosis. She does not have any other obvious source of UTI. Her kidney function is at her baseline. No other significant laboratory normalities. CT of the brain does not show any acute intracranial process. As patient does not have ischemic EKG and has no chest pain or any other cardiac symptoms I do not think he requires troponins. We did some to ambulate the patient and she was able to stand up but could not take too many steps. She does not feel comfortable going home and I am concerned that she would fall if she were to go home at this point. She will be admitted for pain management, PT/OT evaluation and will treat her UTI as well. Lab Data Attestation: I reviewed the patient's lab results. Labs: Laboratory Results - last 24 hr 05/17/23 05/17/23 22:45 23:53 WBC 14.0 H RBC 3.52 L Hgb 11.1 L Hct 34.4 L MCV 97.7 MCH 31.5 MCHC 32.3 RDW Std Deviation 47.4 H RDW Coeff of [place] 13.4 Plt Count 301 MPV 9.9 Immature Gran % (Auto) 0.500 Neut % (Auto) 77.1 H Lymph % (Auto) 15.6 L [place] % (Auto) 6.0 Eos % (Auto) 0.3 Baso % (Auto) 0.5 Absolute Neuts (auto) 10.8 H Absolute Lymphs (auto) 2.18 Nucleated RBC % 0 Sodium 137 Potassium 5.0 Chloride 109 H Carbon Dioxide 21.0 Anion Gap 7 BUN 49 H Creatinine 1.25 H Estim Creat Clear Calc 27.09 Est GFR (MDRD) Af Amer 53 L Est GFR (MDRD) Non-Af 44 L BUN/Creatinine Ratio 39.2 H Glucose 148 H Calcium 9.3 Urine Color Yellow Urine Clarity Clear Urine pH 5.0 Ur Specific [place] 1.015 Urine Protein Negative Urine Glucose (UA) Normal Urine Ketones Negative Urine Occult Blood Negative Urine Nitrite Positive H Urine Bilirubin Negative Urine Urobilinogen Normal Ur Leukocyte Esterase 25 H Urine RBC 0 SEEN Urine WBC 0-5 SEEN Ur Squamous Epith Cells 0 SEEN Urine Bacteria 2+ Urine Mucus 0 SEEN Radiography Diagnostic Testing: Clinical Impression(s) from Imaging Studies Brain CT 05/17/23 22:02 IMPRESSION: No fracture or acute intracranial abnormality. Electronically Signed: Waldemar Baxter DO at 23:36 EDT , Knee X-Ray 05/17/23 23:00 IMPRESSION: No fracture or dislocation. Electronically Signed: Waldemar Baxter, DO at 23:21 EDT , Rhythm Strip Rhythm Strip: Sinus Rhythm Rate: 71 Ectopy: None EKG Initial EKG: Attestation: I personally reviewed and interpreted this EKG as follows: Interpretation: Sinus Rhythm Comments: Normal sinus rhythm rate of 71 bpm with first-degree AV block AK interval 222 Low voltage QRS Normal axis Normal QRS and QTc Normal ST segments No change compared to prior EKG Discharge Plan Dx/Rx/DC Orders Clinical Impression: Closed head injury, Leukocytosis, Syncope, Debility, Contusion of left knee Disposition Disposition: Acute Care [facility]
[2023-05-17 23:08] LABS: Absolute Lymphocyte Count 2.18 X10^3/uL (0.83-4.51); Absolute Neutrophil Count 10.8 X10^3/uL (2.0-7.7); Basophil# 0.07 X10^3/uL; Basophil% 0.5 % (0-1); Eosinophil# 0.04 X10^3/uL; Eosinophils% 0.3 % (0-5); Hematocrit 34.4 % (37-47); Hemoglobin 11.1 g/dL (12.0-15.0); Lymphocyte # 2.18 X10^3/ul (0.83-4.51); Lymphocyte % 15.6 % (19-41); Mean Corp Hgb Conc 32.3 g/dL (32-36); Mean Corpuscular Hgb 31.5 pg (27.0-32.0); Mean Corpuscular Volume 97.7 fL (81-99); Mean Platelet Vol. 9.9 fl (6.2-12.0); Monocyte# 0.84 X10^3/uL; NRBC Flagged by Analyzer 0 % (0-5); Neutrophil # 10.81 X10^3/uL (2.7-7.7); Neutrophil % 77.1 % (47-70); Platelet Count 301 K/mm3 (150-450); RBC Distribution Width CV 13.4 % (11.6-14.6); RBC Distribution Width SD 47.4 fl (35.1-43.9); Red Blood Count 3.52 M/mm3 (4.2-5.4)
[2023-05-17 23:20] LABS: Anion Gap 7 (5-15); BUN 49 mg/dL (7-18); BUN/Creat Ratio 39.2 RATIO (10-20); Calcium,Total 9.3 mg/dL (8.5-10.1); Chloride 109 mmol/L (98-107); Creatinine, Serum 1.25 mg/dL (0.55-1.02); EST Glomerular Filtration Rate 44 mL/min (>60); Est Glom Filt Rate - Afr Amer 53 mL/min (>60); Estimated Creatinine Clearance 27.09 ml/min; Glucose 148 mg/dL (74-106); Sodium Level 137 mmol/L (136-145)
[2023-05-18] VITALS (7 sets, daily range): BP systolic 125–151; BP diastolic 45–54; PULSE 66–86; RESP 14–18; TEMP 36.4–36.8; O2SAT 95–100; BMI 43.9
[2023-05-18] MEDS: morphine 8 MG/ML Syringe 6 MG IV (00:03)
[2023-05-18 00:19] LABS: Mucous, Urine 0 SEEN /hpf (<or=2+); Red Blood Cells-Urine 0 SEEN /hpf (0-5); Squamous Epithelial Cells - UA 0 SEEN /hpf (5-10)
[2023-05-18 00:22] LABS: Color, Urine Yellow (Yellow); Glucose, Dipstick Normal (Normal); Ketone-Dipstick Negative (Negative); Leukocyte Esterase-Dipstick 25 /ul (Negative); Nitrite-Dipstick Positive (Negative); Occult Blood-Urine Negative /ul (Negative); Protein-Dipstick Negative (Negative); Specific Gravity, Urine 1.015 (1.002-1.030); Urine Bilirubin Dipstick Negative (Negative); Urine Clarity Clear (Clear); Urine Urobilinogen Normal (Normal)
[2023-05-18 00:38] LABS: Bacteria 2+ /hpf (None Seen); White Blood Cells 0-5 SEEN /hpf (0-5)
[2023-05-18] MEDS: Ceftriaxone 1 GM/50 ML BAG IV (01:27)
--- NOTE | 2023-05-18 07:53 | HP.PCM.HOS_ITS ---
HPI - General General Date of Admission: 05/18/23 Date of Service: 05/18/23 Chief Complaint: Generalized weakness HPI Narrative MAHAMED SHANKS, is a 78 F with history of morbid obesity, chronic debility (ambulates with cane), chronic back pain and hypertension who presented to [facility] ED on 05/17/2023 after a reported episode of syncope. Patient seen at bedside. Sitting comfortably in bed, conversing normally, no acute distress. Patient states that she continues to feel weaker than her baseline, has not tried to go to bed since they attempted to ambulate her in the ED a few hours prior to my interview. Patient has family that live with her, but she notes that she has several steps that she must maneuver on a daily basis at home and she is concerned about her ability to do that at this point. She otherwise denies any fevers or chills. Denies any other acute pain or discomfort. No other acute concerns. Vitals in ED notable for mild systolic hypertension with SBP 140s to 150s, vitals otherwise normal. Labs notable for WBC count 14, BMP normal, UA with positive nitrates, 25 leukocyte esterase, 0-5 white blood cells, 2+ bacteria. CT brain without contrast with no evidence of acute infarct or intracranial hemorrhage. Left knee x-ray with no fracture or dislocation noted. [facility] Medical History Abdominal cramping Ambulates with cane Arthritis Carpal tunnel syndrome Chest pain Chronic cough CKD (chronic kidney disease) DDD (degenerative disc disease), lumbar Dehydration Hypertension IBS (irritable bowel syndrome) Injury of back Leg cramps Macular degeneration Non-smoker Osteoarthritis Seasonal allergies Urinary incontinence UTI (urinary tract infection) Wears dentures Home Medications lisinopril 20 mg tablet 20 mg PO QDAY BP 03/28/18 [History Last Taken 06/02/22 09:00] vit A 300 mcg-C 200 mg-E 27 mg-lutein 2 mg and minerals tablet 1 ea PO DAILY EYES 04/02/18 [History Last Taken 04/12/22] acetaminophen 650 mg tablet,extended release 1,300 mg PO Q12H 05/30/22 [History Last Taken Unknown] ascorbic acid (vitamin C) 500 mg tablet (Vitamin C) 500 mg PO DAILY 05/30/22 [History Last Taken Unknown] calcium 600 mg capsule 600 mg PO DAILY 05/30/22 [History Last Taken Unknown] cholecalciferol (vitamin D3) 100 mcg (4,000 unit) capsule 100 mcg PO DAILY 05/30/22 [History Last Taken Unknown] triamterene 37.5 mg-hydrochlorothiazide 25 mg tablet 1 tab PO DAILY 05/18/23 [History Last Taken Unknown] Allergy/AdvReac Type Severity Reaction Status Date / Time latex Allergy Hives Verified 05/17/23 20:08 Family History Son Colon cancer Other Arthritis Hypertension Surgical History History of breast biopsy History of carpal tunnel surgery History of colonoscopy History of hysterectomy History of knee joint replacement History of tonsillectomy Social History Smoking Status: Never smoker alcohol intake: never substance use type: does not use caffeine: Yes what type of physical activity do you participate in: walking frequency: 1-2 times per week seatbelt use: always do you feel safe at home: Yes additional social history: single- retired ROS Constitutional Constitutional: Reports fatigue and weakness; Denies chills or fever(s) Eyes Eyes: Denies change in vision Cardiovascular Cardiovascular: Denies chest pain Respiratory/Chest Respiratory/Chest: Denies cough Gastrointestinal Gastrointestinal: Denies abdominal pain Musculoskeletal Musculoskeletal: Reports arthralgias Vital Signs Vital Signs Vital Signs: 05/17/23 20:04 05/17/23 20:24 05/17/23 20:29 Temperature 97.9 F Temperature Source Temporal Pulse Rate 70 80 Respiratory Rate 18 15 Respiratory Effort Normal Non-Labored Respiratory Depth Respiratory Pattern Normal Blood Pressure 113/89 H 152/49 H Blood Pressure Mean 97 83 Blood Pressure Source Blood Pressure Position Blood Pressure Location Pulse Ox 100 98 Oxygen Delivery Method Room Air Room Air 05/18/23 00:05 05/18/23 00:59 05/18/23 03:57 Temperature 97.9 F Temperature Source Temporal Pulse Rate 66 66 Respiratory Rate 14 14 Respiratory Effort Normal Non-Labored Respiratory Depth Normal Respiratory Pattern Normal Blood Pressure 144/52 H 144/52 H Blood Pressure Mean 82 82 Blood Pressure Source Blood Pressure Position Blood Pressure Location Pulse Ox 100 100 Oxygen Delivery Method Room Air Room Air Room Air 05/18/23 04:03 Temperature 98.3 F Temperature Source Oral Pulse Rate 86 Respiratory Rate 15 Respiratory Effort Respiratory Depth Respiratory Pattern Blood Pressure 151/54 H Blood Pressure Mean 86 Blood Pressure Source Monitor Blood Pressure Position Supine Blood Pressure Location Right Arm Pulse Ox 97 Oxygen Delivery Method Room Air Weight Weight: 105.5 kg Body Mass Index (BMI) 43.9 Physical Exam Const alert and oriented x3 Constitutional Narrative: Pleasant female, morbidly obese, sitting comfortably in bed, conversing norm ally, no acute distress. General Appearance: cooperative, comfortable, well kempt and well developed HEENT normocephalic, head/scalp atraumatic, hearing grossly normal bilaterally, nasal mucous membranes and turbinates normal and moist oral mucous membranes Eyes PERRL, EOMs intact bilaterally and conjunctivae normal Neck full ROM, no lymphadenopathy and supple Lymph Lymphatic: no lymphadenopathy noted Chest inspection of chest normal Resp normal respiratory effort, normal air movement, no use of accessory muscles and clear to auscultation bilaterally Cardio regular rate, regular rhythm, no murmurs and peripheral pulses 2+ throughout GI normal to inspection, nondistended, normoactive bowel sounds, soft to palpation, non-tender and non-distended Back/Spine normal ROM Extremity normal to inspection, full ROM and no pedal edema Skin no rashes or lesions noted Psych mental status grossly normal Results Lab / Micro Data 05/17/23 22:45 05/17/23 22:45 Labs: Laboratory Results - last 24 hr 05/17/23 22:45: WBC 14.0 H, RBC 3.52 L, Hgb 11.1 L, Hct 34.4 L, MCV 97.7, MCH 31.5, MCHC 32.3, RDW Std Deviation 47.4 H, RDW Coeff of Renny 13.4, Plt Count 301, MPV 9.9, Immature Gran % (Auto) 0.500, Neut % (Auto) 77.1 H, Lymph % (Auto) 15.6 L, [place] % (Auto) 6.0, Eos % (Auto) 0.3, Baso % (Auto) 0.5, Absolute Neuts (auto) 10.8 H, Absolute Lymphs (auto) 2.18, Nucleated RBC % 0, Sodium 137, Potassium 5.0, Chloride 109 H, Carbon Dioxide 21.0, Anion Gap 7, BUN 49 H, Creatinine 1.25 H, Estim Creat Clear Calc 27.09, Est GFR (MDRD) Af Amer 53 L, Est GFR (MDRD) Non-Af 44 L, BUN/Creatinine Ratio 39.2 H, Glucose 148 H, Calcium 9.3 05/17/23 23:53: Urine Color Yellow, Urine Clarity Clear, Urine pH 5.0, Ur Specific [place] 1.015, Urine Protein Negative, Urine Glucose (UA) Normal, Urine Ketones Negative, Urine Occult Blood Negative, Urine Nitrite Positive H, Urine Bilirubin Negative, Urine Urobilinogen Normal, Ur Leukocyte Esterase 25 H, Urine RBC 0 SEEN, Urine WBC 0-5 SEEN, Ur Squamous Epith Cells 0 SEEN, Urine Bacteria 2+, Urine Mucus 0 SEEN Rhythm Strip Rhythm Strip: Sinus Rhythm Rate: 71 Ectopy: None Radiology Impression Brain CT 05/17/23 22:02 IMPRESSION: No fracture or acute intracranial abnormality. Electronically Signed: Waldemar Baxter DO at 23:36 EDT , Knee X-Ray 05/17/23 23:00 IMPRESSION: No fracture or dislocation. Electronically Signed: Waldemar Baxter DO at 23:21 EDT , Assessment & Plan Assessment/Plan (1) Debility: PLAN: Plan Patient is an 78-year-old female with history of morbid obesity, chronic debility (ambulates with cane), chronic back pain and hypertension who presented to [facility] ED on 05/17/2023 after a reported episode of syncope. 1. Chronic debility with generalized weakness Patient reported an episode of syncope with a fall at home that brought her to the ED. She states that she generally has felt more fatigued recently with worsening weakness. ED staff attempted to ambulate her, however she had difficulty standing up and was only able to take a few steps at that time. Suspect this is progression of her known chronic debility, no overt acute etiologies noted at this time. Patient noted that it would be unsafe for her to go home at this time given her level of debility. ? PT/OT/case management consulted. Fall precautions in place. 2. Reported syncopal episode with fall at home ? Patient reported having a syncopal episode while she was having a bowel movement at home; had crampy abdominal pain and then felt very hot and sweaty, then passed out. Seems most consistent with vasovagal syncope. Patient notably does have a history of vasovagal syncope. She reported hitting her head and knee during the fall. CT head without contrast in the ED was negative. Low co ncern for acute cardiac etiology at this time. Fall precautions in place as noted above. PT/OT/case management consulted as above. 3. Mild leukocytosis ? Suspect secondary to acute stress reaction in setting of recent syncopal episode with fall. WBC count 14 on admit. Patient afebrile, vitals normal; have minimal concern for active infection at this time. Monitor CBC. Chronic medical conditions: ? Hypertension: Home medications of lisinopril 20 mg daily and triamterene hydrochlorothiazide daily. Blood pressures with mildly systolic BPs in the 140s but with wide pulse pressure. Held home medications for now, restart as able. ? Chronic back pain: Continue home Tylenol as needed. ? Morbid obesity: BMI 43. Encourage lifestyle modifications. DVT prophylaxis: Lovenox CODE STATUS: Full code, unverified Expected disposition: Likely SNF, TBD Total clinical time spent by myself addressing the patient's medical issues, reviewing all the data, and collaborating with patient's care team: 55 minutes. Charges/Coding Visit Charges Inpatient E&M: 90831 Init Hosp L2
--- NOTE | 2023-05-18 08:20 | PCM.PN.HOSP ---
Reason for Visit Reason for Visit: Diagnoses Other malaise (05/18/23) Subjective Subjective Patient is an 78-year-old female with history of morbid obesity, chronic debility (ambulates with cane), chronic back pain and hypertension who presented to [facility] ED on 05/17/2023 after a reported episode of syncope. Objective Data Objective Data Vital Signs: Vital Signs Temp Pulse Resp BP Pulse Ox O2 Del Method 98.3 F 86 15 151/54 H 97 Room Air 05/18/23 04:03 05/18/23 04:03 05/18/23 04:03 05/18/23 04:03 05/18/23 04:03 05/18/23 04:03 Oxygen Delivery Method Room Air Weight: 105.5 kg Body Mass Index (BMI) 43.9 Intake & Output: Intake and Output for Last 24 Hours 05/16/23 05/17/23 05/18/23 23:59 23:59 23:59 Intake Total 50 / 50 Output Total 500 / 500 Balance -450 / -450 Lab / Micro Data 05/17/23 22:45 05/17/23 22:45 Labs: Laboratory Results - last 24 hr 05/17/23 22:45: WBC 14.0 H, RBC 3.52 L, Hgb 11.1 L, Hct 34.4 L, MCV 97.7, MCH 31.5, MCHC 32.3, RDW Std Deviation 47.4 H, RDW Coeff of Renny 13.4, Plt Count 301, MPV 9.9, Immature Gran % (Auto) 0.500, Neut % (Auto) 77.1 H, Lymph % (Auto) 15.6 L, [place] % (Auto) 6.0, Eos % (Auto) 0.3, Baso % (Auto) 0.5, Absolute Neuts (auto) 10.8 H, Absolute Lymphs (auto) 2.18, Nucleated RBC % 0, Sodium 137, Potassium 5.0, Chloride 109 H, Carbon Dioxide 21.0, Anion Gap 7, BUN 49 H, Creatinine 1.25 H, Estim Creat Clear Calc 27.09, Est GFR (MDRD) Af Amer 53 L, Est GFR (MDRD) Non-Af 44 L, BUN/Creatinine Ratio 39.2 H, Glucose 148 H, Calcium 9.3 05/17/23 23:53: Urine Color Yellow, Urine Clarity Clear, Urine pH 5.0, Ur Specific [place] 1.015, Urine Protein Negative, Urine Glucose (UA) Normal, Urine Ketones Negative, Urine Occult Blood Negative, Urine Nitrite Positive H, Urine Bilirubin Negative, Urine Urobilinogen Normal, Ur Leukocyte Esterase 25 H, Urine RBC 0 SEEN, Urine WBC 0-5 SEEN, Ur Squamous Epith Cells 0 SEEN, Urine Bacteria 2+, Urine Mucus 0 SEEN Radiography Diagnostic Testing: Radiology Impression Brain CT 05/17/23 22:02 IMPRESSION: No fracture or acute intracranial abnormality. Electronically Signed: Waldemar BaxterDO at 23:36 EDT , Knee X-Ray 05/17/23 23:00 IMPRESSION: No fracture or dislocation. Electronically Signed: Waldemar Baxter DO at 23:21 EDT , Rhythm Strip Rhythm Strip: Sinus Rhythm Rate: 71 Ectopy: None Physical Exam Narrative GENERAL: cooperative HEENT: Atraumatic; normocephalic EYES; Anicteric, Normal Conjunctiva NECK; supple, normal thyroid, RESPIRATORY: Diminished to auscultation CARDIOVASCULAR: Regular S1 S2, GI: soft, normoactive bowel sounds, : No Renal angle tenderness; EXTREMITIES: No edema, no clubbing, MUSCULOSKELETAL: no muscle wasting NEURO: Awake; no lateralizing signs. SKIN: No Rash PSYCH; Flat affect Assessment & Plan Assessment/Plan (1) Debility: PLAN: Plan Patient is an 78-year-old female with history of morbid obesity, chronic debility (ambulates with cane), chronic back pain and hypertension who presented to [facility] ED on 05/17/2023 after a reported episode of syncope. 1. Syncopal episode ? Thought to be consistent with vasovagal syncope. Admitted to a monitored bed for continuous telemetry. CT of the head without contrast obtained in the ED came back unremarkable 2. Physical deconditioning with multiple falls - Requested for PT OT eval and social work msw to assist with discharge planning 3. Acute cystitis ? Patient had leukocytosis as well as positive nitrites as well as leukocyte esterase started on cefdinir pending culture result 4. Hypertension - Blood pressure controlled, home medications continued with dose adjustment as needed 5. Class III obesity with BMI of 43.9 ? Complicating care weight loss advised 6. Chronic back pain ? Tylenol as needed 7. DVT prophylaxis ? SC Lovenox Time spent in the patient's overall evaluation,decision-making process, review of diagnostic data, adjustment of management, discussion with other providers, nursing nursing and ancillary staff involved in patient's care documentation, 50 Minutes Charges/Coding Visit Charges Inpatient E&M: 87153 Subs Hosp L3
[2023-05-18] MEDS: Cefdinir 300 MG Capsule PO ×2 (09:42→21:27)
[2023-05-18] MEDS: Acetaminophen 325 MG Tablet 650 MG PO ×3 (09:42→23:48)
[2023-05-18] MEDS: Calcium (Elemental) 500 MG Tablet PO (09:43)
[2023-05-18] MEDS: Enoxaparin 30 MG/0.3 ML Syringe SC (09:43)
--- NOTE | 2023-05-18 10:29 | CASEMGMT ---
RN MAC MANAGER EDUCATIONAL CM to room to meet with patient for initial transition planning/care coordination assessment. TAMIKO WATTS introduced self and role at [facility]. Pt voices understanding and consents to assessment at this time. Pt sitting up in chair in room in no distress at this time. Son, Lee, in room visiting. Pt agreeable to him being present during assess. Pt is A/O at this time and answers all questions appropriately. Care providers, pharmacy, and demographics verified/updated at this time. PCP: Dr Falcon Specialists: Dr Zurita-retinal specialist in [place] Preferred Pharmacy: [facility] [place], [place] Insurance: [facility] Prescription Benefit: Yes Living Will/HPOA: States does not have LW or HCPOA . Interested in more information and would like to complete them. Rebecca PUGA made aware. LNOK: 2 sons. One's name is Lee. Living Arrangements: Lives w/son, Lee, and dtr-in-law, Lizzy. They live in a one-story home w/3 steps to enter. Family works during the day, so pt is home alone while they are at work. Pt is independent w/ADL's and most IADL's. Pt has poor vision d/t macular degenerations. Pt able to manage her own medications w/organized system. Family does assist when needed. Transportation: Family. DME: Has a cane. Pt does not have a walker. Son states he thinks they have one available, if needed. His is checking on this. Interested in Medical alert button. Info provided at this time. Pt and son state no need for further DME at this time. HHC/SNF: Hx of SNF about 25 yrs ago after knee surgery. No hx of HHC. Would would like to go to [facility] TCU. She declines list of other SNF options at this time unless TCU unable to take her. Rebecca PUGA, made aware. CM to follow for any discharge planning/needs. Pt and son voice no further concerns/needs at this time. Advised them to ask for CM if any further questions/concerns/needs arise. They voices understanding. PLAN: SNF Suzanne CHU RN, CM
--- NOTE | 2023-05-18 10:38 | CASEMGMT ---
Per RN CM patient is interested in [facility]. Therapy has not yet seen patient so once their notes are in SW will make a referral. SW did check with [facility] and there are possible bed openings. SW also spoke with patient. Introduced self and role at [facility]. EDD explained to patient that right now TCU has several patient's with COVID and several staff members are out with COVID. SW told patient everyone that is interested in TCU is being notified. Patient said she is up to date on her vaccines so she is fine with still going to TCU. Rebecca Al ALTERATIONS WORKROOM CLERK SHAISTA
--- NOTE | 2023-05-18 14:44 | CASEMGMT ---
[facility] TCU can take patient pending insurance approval. EDD notified patient. SW also explained to patient she will remain in [facility] until her insurance approves her to go to TCU which could take a day or two. Plan: d/c to [facility] T[facility] pending insurance approval. Rebecca NOONAN
[2023-05-19 05:18] VITALS: BP 130/50; PULSE 66; RESP 16; TEMP 36.8; O2SAT 97
[2023-05-19] MEDS: Acetaminophen 325 MG Tablet 650 MG PO ×2 (05:34→11:54)
[2023-05-19 07:19] VITALS: O2SAT 97
--- NOTE | 2023-05-19 10:02 | RAD_ITS ---
STUDY: X-RAY - LEFT ANKLE REASON FOR EXAM: Female, 78 years old. Swelling/pain TECHNIQUE: 3 view(s) of the ankle. COMPARISON: None. FINDINGS: Normal visualized distal tibia and fibula. Old avulsion fracture of the medial malleolus. Normal tibiotalar articulation and ankle mortise. Calcaneal spurs. The visualized subtalar, talonavicular, calcaneocuboid and tarsal articulations are normal. Soft tissue swelling. RAD/Ankle min 3 Views IMPRESSION: Old avulsion fracture of the medial malleolus. Calcaneal spurs. Soft tissue swelling. Electronically Signed: Jonny Juan MD at 12:28 EDT ,
[2023-05-19 10:05] VITALS: BP 139/62; PULSE 70; RESP 16; TEMP 36.9; O2SAT 95
[2023-05-19] MEDS: Cefdinir 300 MG Capsule PO (10:06)
[2023-05-19] MEDS: Calcium (Elemental) 500 MG Tablet PO (10:06)
[2023-05-19] MEDS: Enoxaparin 30 MG/0.3 ML Syringe SC (10:06)
--- NOTE | 2023-05-19 11:18 | PCM.TXEXTCAR ---
Diet Diet Order/Speech Therapy: 05/18/23 03:42 Diet: Consistent Carb - Calorie Controlled Food consistency:: Regular Liquid Consistency:: Regular/Thin How many daily calories?: 1800 calorie Wound(s) forehead: Wound Type: Laceration Therapies Physical Therapy: Eval and Treat Occupational Therapy: Eval and Treat Problem/Diagnosis (1) Debility: Status: Acute Code(s): R53.81 - Other malaise Plan Patient is an 78-year-old female with history of morbid obesity, chronic debility (ambulates with cane), chronic back pain and hypertension who presented to [facility] ED on 05/17/2023 after a reported episode of syncope. 1. Syncopal episode ? Thought to be consistent with vasovagal syncope. Admitted to a monitored bed for continuous telemetry. CT of the head without contrast obtained in the ED came back unremarkable 2. Physical deconditioning with multiple falls - Requested for PT OT eval and director social service to assist with discharge planning 3. Acute cystitis ? Patient had leukocytosis as well as positive nitrites as well as leukocyte esterase started on cefdinir pending culture result 4. Hypertension - Blood pressure controlled, home medications continued with dose adjustment as needed 5. Class III obesity with BMI of 43.9 ? Complicating care weight loss advised 6. Chronic back pain ? Tylenol as needed 7. DVT prophylaxis ? SC Lovenox Time spent in the patient's overall evaluation,decision-making process, review of diagnostic data, adjustment of management, discussion with other providers, nursing nursing and ancillary staff involved in patient's care documentation, 50 Minutes Allergies/Procedures Done in Hospital Allergies latex Allergy (Verified 05/17/23 20:08) Hives Type of Care/Length of Stay Estimated LOS: Convalescent Care Less Than 30 days Type of Care Needed: Skilled Rehab Potential: Good Prognosis: Good Additional Orders/Day of Discharge Day of Discharge: 05/19/23 Discharge Plan Admission Admit Date/Time: 05/18/23 00:58 Attending Provider: Roberto Bello Primary Care Provider: Steve Falcon Chi Consulting Providers: Inocencio Wood Discharge Orders/Prescriptions Prescriptions: New cefdinir 300 mg Capsule 300 mg PO Q12 Qty: 0 0RF acetaminophen 500 mg capsule 1,000 mg PO Q8 Qty: 0 0RF melatonin 3 mg Tablet 3 mg PO QHS PRN PRN (Reason: Insomnia) Qty: 0 0RF Continued lisinopril 20 mg tablet 20 mg PO QDAY vit A,C and [id number] 1 EACH tablet 1 ea PO DAILY calcium 600 mg Capsule 600 mg PO DAILY ascorbic acid (vitamin C) [Vitamin C] 500 mg Tablet 500 mg PO DAILY cholecalciferol (vitamin D3) 100 mcg (4,000 unit) Capsule 100 mcg PO DAILY Hold Instructions: not taking currently triamterene-hydrochlorothiazid 37.5-25 mg tablet 1 tab PO DAILY Patient Comments: TAKE 1 TABLET BY MOUTH DAILY Discontinued acetaminophen 650 mg Tablet Extended Release 1,300 mg PO Q12H Referrals / Follow Up: Steve Falcon Chi, MD [Primary Care Provider] - Within 1 Week Disposition Disposition (needs filled in before D/C Order can be placed): Longterm Facility
--- NOTE | 2023-05-19 11:27 | DS.PCM_ITS ---
Providers Date of Admission: 05/18/23 Date of Discharge: 05/19/23 Primary Care Physician: Dr. Steve Falcon MD Reason For Visit: WEAKNESS, UTI Diagnosis Discharge Diagnosis (1) Debility: Status: Acute Code(s): R53.81 - Other malaise Plan Patient is an 78-year-old female with history of morbid obesity, chronic debility (ambulates with cane), chronic back pain and hypertension who presented to [facility] ED on 05/17/2023 after a reported episode of syncope. 1. Syncopal episode ? Thought to be consistent with vasovagal syncope. Admitted to a monitored bed for continuous telemetry. CT of the head without contrast obtained in the ED came back unremarkable 2. Physical deconditioning with multiple falls - Requested for PT OT eval and nursing home social worker to assist with discharge planning 3. Acute cystitis ? Patient had leukocytosis as well as positive nitrites as well as leukocyte esterase started on cefdinir pending culture result 4. Hypertension - Blood pressure controlled, home medications continued with dose adjustment as needed 5. Class III obesity with BMI of 43.9 ? Complicating care weight loss advised 6. Chronic back pain ? Tylenol as needed 7. DVT prophylaxis ? SC Lovenox Time spent in the patient's overall evaluation,decision-making process, review of diagnostic data, adjustment of management, discussion with other providers, nursing nursing and ancillary staff involved in patient's care documentation, 50 Minutes Medications at Discharge Home Medications lisinopril 20 mg tablet 20 mg PO QDAY BP 03/28/18 vit A 300 mcg-C 200 mg-E 27 mg-lutein 2 mg and minerals tablet 1 ea PO DAILY EYES 04/02/18 ascorbic acid (vitamin C) 500 mg tablet (Vitamin C) 500 mg PO DAILY 05/30/22 calcium 600 mg capsule 600 mg PO DAILY 05/30/22 cholecalciferol (vitamin D3) 100 mcg (4,000 unit) capsule 100 mcg PO DAILY 05/30/22 triamterene 37.5 mg-hydrochlorothiazide 25 mg tablet 1 tab PO DAILY 05/18/23 acetaminophen 500 mg capsule 1,000 mg (2 x 500 mg) PO Q8 #0 caps 05/19/23 cefdinir 300 mg capsule 300 mg PO Q12 #0 caps 05/19/23 melatonin 3 mg tablet 3 mg PO QHS PRN PRN Insomnia #0 tabs 09/22/23 Hospital Course Summary of Care Provided Minutes Spent on Discharge: 35 Physical Exam Narrative GENERAL: cooperative HEENT: Atraumatic; normocephalic EYES; Anicteric, Normal Conjunctiva NECK; supple, normal thyroid, RESPIRATORY: Diminished to auscultation CARDIOVASCULAR: Regular S1 S2, GI: soft, normoactive bowel sounds, : No Renal angle tenderness; EXTREMITIES: No edema, no clubbing, MUSCULOSKELETAL: no muscle wasting NEURO: Awake; no lateralizing signs. SKIN: No Rash PSYCH; Flat affect Weight / BMI Weight Weight: 105.5 kg Body Mass Index (BMI) 43.9 ABG / Lab / Microbiology Data 05/17/23 22:45 05/17/23 22:45 Microbiology: Microbiology 05/17/23 23:55 Urine, Catheterized Urine Culture - Preliminary Presumptive E. coli D/C Instructions Discharge Diet: No restrictions Discharge Activity: Return to Normal Activity Call your doctor if you observe: Fever of 101 or Higher, Shortness of breath, Fainting spells and Chest pain Meaningful Use Info Meaningful Use Diagnoses (Choose all that apply): None applicable Discharge Plan Admission Admit Date/Time: 05/18/23 00:58 Attending Provider: Roberto Bello Primary Care Provider: Steve Falcon Chi Consulting Providers: Inocencio Wood Discharge Orders/Prescriptions Prescriptions: New cefdinir 300 mg Capsule 300 mg PO Q12 Qty: 0 0RF acetaminophen 500 mg capsule 1,000 mg PO Q8 Qty: 0 0RF melatonin 3 mg Tablet 3 mg PO QHS PRN PRN (Reason: Insomnia) Qty: 0 0RF Continued lisinopril 20 mg tablet 20 mg PO QDAY vit A,C and [id number] 1 EACH tablet 1 ea PO DAILY calcium 600 mg Capsule 600 mg PO DAILY ascorbic acid (vitamin C) [Vitamin C] 500 mg Tablet 500 mg PO DAILY cholecalciferol (vitamin D3) 100 mcg (4,000 unit) Capsule 100 mcg PO DAILY Hold Instructions: not taking currently triamterene-hydrochlorothiazid 37.5-25 mg tablet 1 tab PO DAILY Patient Comments: TAKE 1 TABLET BY MOUTH DAILY Discontinued acetaminophen 650 mg Tablet Extended Release 1,300 mg PO Q12H Referrals / Follow Up: Steve Falcon Chi, MD [Primary Care Provider] - Within 1 Week Disposition Disposition (needs filled in before D/C Order can be placed): Residential Facility Charges/Coding Visit Charges Inpatient E&M: 59200 Disch Hosp >30min
--- NOTE | 2023-05-19 12:10 | RAD_ITS ---
STUDY: X-RAY - LEFT FOOT CLINICAL: Female, 78 years old. Swelling/pain TECHNIQUE: 3 view(s) of the foot. COMPARISON: None. FINDINGS: There is an enthesophyte involving the posterior superior calcaneus at the site of insertion of the Achilles tendon. Plantar spur. Normal visualized subtalar, talonavicular, calcaneocuboid, tarsal and tarsometatarsal articulations. Normal metatarsi. Normal metatarsophalangeal joint of the great toe. Normal tibial and fibular sesamoid bones. Normal interphalangeal joint of the great toe. Normal phalanges of the great toe. Normal second through fifth metatarsophalangeal joints. Normal interphalangeal joints and phalanges of the lesser toes. Soft tissue swelling. RAD/Foot min 3 Views IMPRESSION: Calcaneal Spurs. Soft tissue swelling. Electronically Signed: Jonny Juan MD at 12:27 EDT ,
--- NOTE | 2023-05-19 12:13 | NURSING ---
Called report to [facility] on TCU
--- NOTE | 2023-05-19 12:21 | PHA.DC.MC.R ---
Pharmacy [facility] has performed discharge medication reconciliation and counseling for this patient. The patient's discharge medication list was reviewed for discrepancies and discrepancies were resolved. The patient was counseled on the following discharge medications and changes in medications for homegoing were reviewed. The Reason for Use, instructions for use, and potential side effects were reviewed for all new medications. The patient's questions regarding all of their medications were answered. 1. Cefdinir 300 mg PO Q12H 2. Melatonin 3 mg PO QHS PRN insomnia 3. Acetaminophen 1000 mg PO Q8H The patient and son was able to verbally demonstrate an understanding of their discharge medications. Medications at Discharge Home Medications lisinopril 20 mg tablet 20 mg PO QDAY BP 03/28/18 vit A 300 mcg-C 200 mg-E 27 mg-lutein 2 mg and minerals tablet 1 ea PO DAILY EYES 04/02/18 ascorbic acid (vitamin C) 500 mg tablet (Vitamin C) 500 mg PO DAILY 05/30/22 calcium 600 mg capsule 600 mg PO DAILY supplement 05/30/22 cholecalciferol (vitamin D3) 100 mcg (4,000 unit) capsule 100 mcg PO DAILY 05/30/22 triamterene 37.5 mg-hydrochlorothiazide 25 mg tablet 1 tab PO DAILY for blood pressure 05/18/23 acetaminophen 500 mg capsule 1,000 mg (2 x 500 mg) PO Q8 #0 caps 05/19/23 cefdinir 300 mg capsule 300 mg PO Q12 #0 caps 05/19/23 melatonin 3 mg tablet 3 mg PO QHS PRN PRN Insomnia #0 tabs 05/19/23
== END 2023-05-19 13:46 | disposition skilled nursing facility (03) | DRG 312 ==
LOC: ED 05-18 00:56 → PCU 05-18 02:43
PROVIDERS: Admitting Provider Hospitalist; Emergency Provider Emergency Medicine; PCP Family Medicine Geriatric Medicine; Visit Provider Internal Medicine
DX: R55 Syncope and collapse (principal); Z68.41 Body mass index [BMI] 40.0-44.9, adult; N30.00 Acute cystitis without hematuria; E66.01 Morbid (severe) obesity due to excess calories; I10 Essential (primary) hypertension; M51.36 Other intervertebral disc degeneration, lumbar region; G89.29 Other chronic pain; R53.81 Other malaise; R29.6 Repeated falls; Z96.653 Presence of artificial knee joint, bilateral; Z79.899 Other long term (current) drug therapy
CPT/HCPCS: 70450; 73562; 73610; 73630; 80048; 81001; 85025; 87086; 87088; 87186; 93005; 97162; 97166; 99284; A4216

== ENCOUNTER 2023-05-19 14:05 | Inpatient (IN) | payer MEDICARE, SELFPAY ==
[2023-05-19 14:21] VITALS: BP 160/69; PULSE 77; RESP 16; TEMP 37.2; O2SAT 94; BMI 43.3
[2023-05-19 14:28] VITALS: BMI 43.2
--- NOTE | 2023-05-19 16:34 | PCM.HP.STD ---
[facility] - General General Date of Admission: 05/19/23 Date of Service: 05/19/23 Chief Complaint: Physical debility due to fall from a syncopal episode. HPI Narrative MAHAMED SHANKS, is a 78 YO F with a past medical history of morbid obesity, hypertension, wet macular degeneration (legally blind), chronic back pain, osteoarthritis, irritable bowel syndrome, urge urinary incontinence, anemia (GI work-up recently negative) and chronic renal failure stage IIIa-IIIb who [facility] after a syncopal episode while seated on the toilet having a BM. She hit her R forehead and twisted her Left ankle and knee. She had recently been having diarrhea and she is also on a diuretic. The syncope is most likely multifactorial and due to IV volume depletion and vasovagal syncope. She has gotten lightheaded on the toilet in the past when she is bearing down when constipated. A noncontrast CT brain showed no fracture or acute intracranial abnormality. An x-ray of the left knee showed evidence of prior total knee arthroplasty which was intact and appeared stable. There was no fracture or dislocation. An x-ray of the left ankle showed an old avulsion fracture of the medial malleolus and calcaneal spurs with soft tissue swelling. She has spurs where the Achilles attaches and a very large spur where the plantar fascia attaches. She had an elevated white count at 14 with a mild left shift. Potassium was borderline high at 5 and the BUN was 49 with a creatinine of 1.25 which is actually below her baseline. UA was positive for nitrite and had 0-5 white blood cells and 0 RBCs seen. There was 2+ bacteria. Culture grew greater than 100,000 colonies of E. coli and it is not marked whether this is a clean-catch or a straight cath. She was admitted to the hospitalist service and started on an antibiotic for suspected urinary tract infection. She was hydrated and the creatinine came down to 1.25 on 05/17/2023. She was seen by PT/OT and she could only ambulate 3 ft with a WW and many VC's needed. FDC was recommended at DC from the hospital. She was transferred to the [facility]23 for ongoing PT and OT for strengthening and pain control to restore function/independence at or near her level prior to the recent fall. [facility] Medical History (Updated 05/19/23 @ 17:[address] India Brito DO) Abdominal cramping Ambulates with cane Arthritis Bilateral calcaneal spurs Carpal tunnel syndrome Chest pain Chronic cough Chronic renal failure, stage 3a CKD (chronic kidney disease) DDD (degenerative disc disease), lumbar Dehydration Hypertension IBS (irritable bowel syndrome) Injury of back Leg cramps Macular degeneration Non-smoker Osteoarthritis Seasonal allergies Urinary incontinence UTI (urinary tract infection) Wears dentures Home Medications lisinopril 20 mg tablet 20 mg PO QDAY BP 03/28/18 [History Last Taken 06/02/22 09:00] vit A 300 mcg-C 200 mg-E 27 mg-lutein 2 mg and minerals tablet 1 ea PO DAILY EYES 04/02/18 [History Last Taken 04/12/22] ascorbic acid (vitamin C) 500 mg tablet (Vitamin C) 500 mg PO DAILY suppliment 05/30/22 [History Last Taken 05/19/23] calcium 600 mg capsule 600 mg PO DAILY supplement 05/30/22 [History Last Taken 05/19/23] cholecalciferol (vitamin D3) 100 mcg (4,000 unit) capsule 100 mcg PO DAILY bone health 05/30/22 [History Last Taken 05/19/23] triamterene 37.5 mg-hydrochlorothiazide 25 mg tablet 1 tab PO DAILY for blood pressure 05/18/23 [History Last Taken Unknown] acetaminophen 500 mg capsule 1,000 mg (2 x 500 mg) PO Q8 pain #0 caps 05/19/23 [Rx Last Taken 05/19/23] cefdinir 300 mg capsule 300 mg PO BID uti #10 caps 05/19/23 [Rx Last Taken 05/19/23] cefdinir 300 mg capsule 300 mg PO Q12 uti #0 caps 05/19/23 [Rx Last Taken 05/19/23] melatonin 3 mg tablet 3 mg PO QHS PRN PRN Insomnia #0 tabs 05/19/23 [Rx Last Taken Unknown] Allergy/AdvReac Type Severity Reaction Status Date / Time latex Allergy Hives Verified 05/17/23 20:08 Family History (Updated 05/19/23 @ 17:[address] India Brito DO) Son Colon cancer Mother Diabetes Other Arthritis Hypertension Surgical History History of breast biopsy History of carpal tunnel surgery History of colonoscopy History of hysterectomy History of knee joint replacement History of tonsillectomy Social History (Updated 05/19/23 @ 17:[address] India Brito DO) household members: family housing: house Smoking Status: Never smoker alcohol intake: never substance use type: does not use caffeine: Yes what type of physical activity do you participate in: walking frequency: 1-2 times per week seatbelt use: always do you feel safe at home: Yes additional social history: single- retired ROS Constitutional Constitutional: Reports weakness; Denies anorexia, change in weight, chills, fatigue, fever(s) or night sweats Eyes Eyes: Reports loss of vision and other Details: She was diagnosed with wet macular degeneration approximately 20 years ago and is now legally blind but can see some shapes. ; Denies discharge from eye(s), exophthalmos or eye pain ENT HEENT: Reports nasal discharge and other Details: c/o post nasal drainage ; Denies abnormal hearing, dysphagia, headache(s), hearing loss, nasal congestion, sinus pressure or sore throat Cardiovascular Cardiovascular: Reports lightheadedness and syncope; Denies chest pain, dyspnea on exertion, edema, orthopnea, palpitations or paroxysmal nocturnal dyspnea Respiratory/Chest Respiratory/Chest: Denies cough, dyspnea, shortness of breath at rest, shortness of breath with exertion or wheezing Gastrointestinal Gastrointestinal: Reports other Details: She has alternating diarrhea and constipation which she attributes to IBS........she consumes caffeinated drinks. ; Denies abdominal pain, constipation, diarrhea, dyspepsia, hematemesis, hematochezia, nausea or vomiting Genitourinary Genitourinary: Reports urinary incontinence; Denies dysuria, hematuria, nocturia, urinary frequency or urinary hesitancy Musculoskeletal Musculoskeletal: Reports back pain, joint pain and other Details: Chronic pain in the left knee and now pain in the left ankle as well ; Denies joint swelling or neck pain Integumentary Integumentary: Reports wounds and other Details: she has an abrasion on the R forehead due to recent fall ; Denies jaundice Neurologic Neurologic: Reports disequilibrium; Denies confusion, dizziness, focal weakness, headache(s), paresthesias, seizures or tremor(s) Psychiatric Psychiatric: Denies anxiety, depression, homicidal ideation or suicidal ideation Endocrine Endocrinology: Denies change in body appearance, polydipsia or polyuria Hematologic/Lymphatic Hematologic/Lymphatic: Denies easy bleeding, easy bruising or lymphadenopathy Allergic/Immunologic Allergic/Immunologic: Denies rhinitis, eczemia or asthma Vital Signs Vital Signs Vital Signs: 05/19/23 14:21 Temperature 99.0 F Temperature Source Temporal Pulse Rate 77 Respiratory Rate 16 Blood Pressure 160/69 H Blood Pressure Mean 99 Blood Pressure Source Monitor Blood Pressure Position Semi-Fowlers Blood Pressure Location Right Arm Pulse Ox 94 Oxygen Delivery Method Room Air Weight Weight: 229 lb 4.8 oz Body Mass Index (BMI) 43.3 Physical Exam Const alert, oriented x3, no apparent distress, healthy appearing and well nourished Constitutional Narrative: morbidly obese, legally blind, very pleasant and appropriate General Appearance: cooperative and well kempt HEENT HEENT Narrative: Dry MM Head and Scalp: normocephalic and other Other Details: abrasion to the R forehead....no evidence of infection ; Negative for Nicole's sign Eyes conjunctivae normal and no scleral icterus Eyes Narrative: legally blind Neck no lymphadenopathy and supple Neck Narrative: Thick neck General: trachea midline Chest Chest: symmetrical chest wall rise Resp normal respiratory effort, normal air movement, no use of accessory muscles and clear to auscultation bilaterally Resp Narrative: Not tachypneic and no conversational dyspnea. Effort and Inspection: able to speak in complete sentences Cardio regular rate, regular rhythm, S1 normal heart sound, S2 normal heart sound, no murmurs, no rub, no gallops and peripheral pulses 2+ throughout GI normal to inspection, nondistended, normoactive bowel sounds, soft to palpation, non-tender and non-distended GI Narrative: No guarding with palpation. Extremity no clubbing, cyanosis or edema and no calf tenderness Extremity Narrative: She has tenderness of the left knee with movement. It is not red, bruised or warm to touch. She has has pain in the Left ankle with any attempt to move it. No pitting edema of the ankle. No bruising. General Extremity: Negative for calf tenderness Skin no jaundice Skin Narrative: No rashes, no skin breakdown. She has an abrasion of the R forehead from the fall. Neuro oriented x3, CN's II-XII intact bilaterally and no focal motor deficits Neuro Narrative: Generalized weakness Psych affect normal Psych Narrative: Appropriate. Able to stay on topic and focus. No flight of ideas. Does not appear anxious or depressed. Conversant and relating well to staff. Pleasant Appearance: appropriate Attitude: calm Activity / Motor Behavior: Negative for psychomotor agitation or psychomotor slowing Speech: normal speech Memory / Cognition: memory grossly intact Assessment & Plan Assessment/Plan (1) Physical debility: (2) Syncope: QUALIFIERS: Syncope type: vasovagal syncope Qualified Code(s): R55 - Syncope and collapse (3) Closed head injury: QUALIFIERS: Encounter type: subsequent encounter Qualified Code(s): S09.90XD - Unspecified injury of head, subsequent encounter (4) Chronic renal failure, stage 3a: (5) Calcaneal spur of left foot: (6) Left ankle sprain: QUALIFIERS: Encounter type: subsequent encounter Involved ligament of ankle: unspecified ligament Qualified Code(s): S93.402D - Sprain of unspecified ligament of left ankle, subsequent encounter (7) Plantar fasciitis: (8) Bilateral calcaneal spurs: (9) Venous insufficiency of both lower extremities: (10) Hyperglycemia: (11) Contusion of left knee: QUALIFIERS: Encounter type: subsequent encounter Qualified Code(s): S80.02XD - Contusion of left knee, subsequent encounter (12) Normochromic normocytic anemia: PLAN: GI W/U recently negative (13) Post-nasal drainage: (14) DDD (degenerative disc disease), lumbar: PLAN: Plan PLAN PT for gait stability OT for ADL's ST for evaluation Analgesics as needed Bowel protocol Fall precautions Assess for Anxiety/Depression GI prophylaxis with not necessary at this time. She denies epigastric pain, nausea and vomiting. DVT prophylaxis with Lovenox Follow up with Dr. Falcon following DC from [facility] AM lab including CMP, CBC, Mag and Phos and HGBA1C ordered. Arthritis compounded cream to the left knee and ankle. tylenol 1 GM Q8 hours for pain Would benefit from wearing shoes anytime she is out of bed to help with plantar fasciitis pain.
[2023-05-19] MEDS: Cefdinir 300 MG Capsule PO (20:35)
[2023-05-19] MEDS: Acetaminophen 500 MG Tablet 1000 MG PO (20:35)
[2023-05-19] MEDS: Ipratropium Bromide 0.06% NASAL SPRAY 2 SPRAY NASAL (20:35)
[2023-05-19] MEDS: Arthritis Pain Compound 60 CLICK TUBE TOPICAL (20:36)
[2023-05-20] MEDS: Acetaminophen 500 MG Tablet 1000 MG PO ×3 (05:13→22:41)
[2023-05-20] MEDS: Arthritis Pain Compound 60 CLICK TUBE TOPICAL ×3 (05:13→22:42)
[2023-05-20 07:19] LABS: Absolute Lymphocyte Count 2.76 X10^3/uL (0.83-4.51); Absolute Neutrophil Count 5.9 X10^3/uL (2.0-7.7); Basophil# 0.05 X10^3/uL; Basophil% 0.5 % (0-1); Eosinophil# 0.16 X10^3/uL; Eosinophils% 1.6 % (0-5); Hematocrit 30.6 % (37-47); Hemoglobin 9.8 g/dL (12.0-15.0); Lymphocyte # 2.76 X10^3/ul (0.83-4.51); Lymphocyte % 27.9 % (19-41); Mean Corpuscular Hgb 31.3 pg (27.0-32.0); Mean Corpuscular Volume 97.8 fL (81-99); Mean Platelet Vol. 9.9 fl (6.2-12.0); Monocyte# 0.98 X10^3/uL; Monocyte% 9.9 % (0-10); NRBC Flagged by Analyzer 0 % (0-5); Neutrophil % 59.8 % (47-70); Platelet Count 247 K/mm3 (150-450); RBC Distribution Width CV 13.2 % (11.6-14.6); RBC Distribution Width SD 47.1 fl (35.1-43.9); Red Blood Count 3.13 M/mm3 (4.2-5.4); White Blood Count 9.9 K/mm3 (4.4-11.0)
[2023-05-20 07:55] LABS: Anion Gap 7 (5-15); BUN 39 mg/dL (7-18); BUN/Creat Ratio 35.5 RATIO (10-20); Chloride 110 mmol/L (98-107); EST Glomerular Filtration Rate 51 mL/min (>60); Est Glom Filt Rate - Afr Amer 61 mL/min (>60); Estimated Creatinine Clearance 30.78 ml/min; Glucose 132 mg/dL (74-106); Sodium Level 140 mmol/L (136-145)
[2023-05-20 08:30] LABS: Hemoglobin A1c 6.3 % (3.8-5.6)
[2023-05-20] MEDS: Cefdinir 300 MG Capsule PO ×2 (09:59→22:42)
[2023-05-20] MEDS: Ipratropium Bromide 0.06% NASAL SPRAY 2 SPRAY NASAL ×2 (10:00→22:41)
[2023-05-20] MEDS: Senna/Docusate Sodium 1 Tablet 2 TABLET PO (10:01)
[2023-05-20] MEDS: Calcium (Elemental) 500 MG Tablet PO (10:04)
[2023-05-20] MEDS: Cholecalciferol (VIT D3) 25 MCG TABLET (1,000 UNITS) 50 MCG PO (10:04)
[2023-05-20] MEDS: Lisinopril 20 MG Tablet PO (10:05)
[2023-05-20 11:31] VITALS: BP 136/49; PULSE 70; RESP 16; TEMP 36.9; O2SAT 97
[2023-05-20] MEDS: Enoxaparin 40 MG/0.4 ML Syringe SC (12:54)
[2023-05-20] MEDS: Tuberculin,Purif.prot.deriv. 50 TU/ML Vial 0.1 ML ID (12:57)
[2023-05-21] MEDS: Enoxaparin 40 MG/0.4 ML Syringe SC (05:49)
[2023-05-21] MEDS: Arthritis Pain Compound 60 CLICK TUBE TOPICAL ×3 (05:50→21:34)
[2023-05-21] MEDS: Acetaminophen 500 MG Tablet 1000 MG PO ×3 (05:50→21:35)
[2023-05-21] MEDS: Cholecalciferol (VIT D3) 25 MCG TABLET (1,000 UNITS) 50 MCG PO (08:13)
[2023-05-21] MEDS: Cefdinir 300 MG Capsule PO ×2 (08:13→21:35)
[2023-05-21] MEDS: Ipratropium Bromide 0.06% NASAL SPRAY 2 SPRAY NASAL ×2 (08:13→21:35)
[2023-05-21] MEDS: Senna/Docusate Sodium 1 Tablet 2 TABLET PO (08:14)
[2023-05-21] MEDS: Lisinopril 20 MG Tablet PO (08:14)
[2023-05-21] MEDS: Calcium (Elemental) 500 MG Tablet PO (08:16)
[2023-05-21 15:28] VITALS: BP 158/62; PULSE 68; RESP 14; TEMP 36.6; O2SAT 99
[2023-05-21] MEDS: Miconazole Nitrate 43 GM Bottle 1 APPLIC TOPICAL (21:34)
[2023-05-22] MEDS: Acetaminophen 500 MG Tablet 1000 MG PO ×3 (05:21→20:16)
[2023-05-22] MEDS: Enoxaparin 40 MG/0.4 ML Syringe SC (05:22)
[2023-05-22] MEDS: Arthritis Pain Compound 60 CLICK TUBE TOPICAL ×3 (05:22→20:14)
[2023-05-22] MEDS: traMADol 50 MG Tablet PO (05:27)
--- NOTE | 2023-05-22 09:49 | NURSING ---
Insurance Underwriting Assistant Note; Activity Asset: Complete
[2023-05-22] MEDS: Calcium (Elemental) 500 MG Tablet PO (10:11)
[2023-05-22] MEDS: Ipratropium Bromide 0.06% NASAL SPRAY 2 SPRAY NASAL ×2 (10:12→20:14)
[2023-05-22] MEDS: Cholecalciferol (VIT D3) 25 MCG TABLET (1,000 UNITS) 50 MCG PO (10:13)
[2023-05-22] MEDS: Cefdinir 300 MG Capsule PO ×2 (10:13→20:16)
[2023-05-22] MEDS: Lisinopril 20 MG Tablet PO (10:15)
[2023-05-22] MEDS: Miconazole Nitrate 43 GM Bottle 1 APPLIC TOPICAL ×2 (10:17→20:14)
[2023-05-22 10:19] VITALS: BP 109/48; PULSE 66
--- NOTE | 2023-05-22 11:45 | CASEMGMT ---
Social Work Met with patient to complete initial assessment. Introduced self and role. Verified contacts. Discussed code status and pt confirms full code. Pt wishes to complete advanced directives. Pt will retrieve son's contact information for this worker to complete. Educated to [facility] insurance with NRD 05/23 and continued stay is not guaranteed with each review. Pt's goal is to return living with son and DIL. Despite pt being legally blind, pt can still function independently at baseline, with a few exceptions. SW explored resources available to pt and pt states before she moved to [place], she lived in [place] and participated in volunteer work, community events, wellness activities, etc. SW offered to make referral to [facility] on Aging to connect with local resources. Pt agreed and appreciative. SW completed online referral. SW will continue to follow for DC planning. MATTHEW Tsai
[2023-05-22] MEDS: Menthol/Lanolin/Calamine/Znox 113 GM Tube 1 APPLIC TOPICAL ×2 (13:52→20:16)
[2023-05-22 15:45] VITALS: BP 127/63; PULSE 68; RESP 16; TEMP 36.1; O2SAT 97
[2023-05-23] MEDS: Enoxaparin 40 MG/0.4 ML Syringe SC (06:32)
[2023-05-23] MEDS: Acetaminophen 500 MG Tablet 1000 MG PO ×3 (06:32→22:05)
[2023-05-23] MEDS: Arthritis Pain Compound 60 CLICK TUBE TOPICAL ×3 (06:32→22:02)
[2023-05-23] MEDS: traMADol 50 MG Tablet PO (06:40)
[2023-05-23 09:33] VITALS: BMI 43.2
[2023-05-23] MEDS: Menthol/Lanolin/Calamine/Znox 113 GM Tube 1 APPLIC TOPICAL ×2 (09:44→22:03)
[2023-05-23] MEDS: Ipratropium Bromide 0.06% NASAL SPRAY 2 SPRAY NASAL ×2 (09:44→22:02)
[2023-05-23] MEDS: Miconazole Nitrate 43 GM Bottle 1 APPLIC TOPICAL ×2 (09:45→22:04)
[2023-05-23] MEDS: Calcium (Elemental) 500 MG Tablet PO (09:46)
[2023-05-23] MEDS: Cholecalciferol (VIT D3) 25 MCG TABLET (1,000 UNITS) 50 MCG PO (09:47)
[2023-05-23] MEDS: Lisinopril 20 MG Tablet PO (09:54)
[2023-05-23 09:55] VITALS: BP 120/46; PULSE 69
[2023-05-23 13:27] VITALS: BP 125/63; PULSE 60; RESP 18; TEMP 36.1; O2SAT 97
--- NOTE | 2023-05-23 16:45 | PHA.CONS_ITS ---
Documented by User: Vincenzo Nam 05/23/23 17:12 TCU RX Drug Regimen Review Subjective/Objective Subjective/Objective: Subjective: Tata Chawla is a 78 YO F, admitted to PCU s/p debility due to a fall from a syncopal episode. Here for strengthening, pain control, and re habilitation prior to discharge. Objective: Allergies latex Allergy (Verified 05/17/23 20:08) Hives Current Medications Generic Name Dose Route Start Last Admin Trade Name Jolie PRN Reason Stop Dose Admin Acetaminophen 1,000 mg 05/19/23 22:00 05/23/23 13:25 Acetaminophen 500 Mg Tablet PO 1,000 mg Q8 JULISA Administration Calamine/Phenol 1 applic 05/22/23 10:10 05/23/23 09:44 Menthol/Lanolin/Calamine/Znox 113 Gm Tube TOPICAL 1 applic BID JULISA Administration Protocol Calcium Carbonate 500 mg 05/20/23 08:00 05/23/23 09:46 Calcium (Elemental) 500 Mg Tablet PO 500 mg BREAKFAST JULISA Administration Cholecalciferol 50 mcg 05/20/23 10:00 05/23/23 09:47 Cholecalciferol (Vit D3) 25 Mcg Tablet (1,000 Units) PO 50 mcg DAILY JULISA Administration Compound Med 2 click 05/19/23 22:00 05/23/23 13:25 Arthritis Pain Compound 60 Click Tube TOPICAL 2 click TID JULISA Administration Protocol Enoxaparin Sodium 40 mg 05/20/23 11:00 05/23/23 06:32 Enoxaparin 40 Mg/0.4 Ml Syringe SC 40 mg DAILY@0600 JULISA Administration Ipratropium [place] 2 spray 05/19/23 22:00 05/23/23 09:44 Ipratropium [place] 0.06% Nasal [place] NASAL 2 spray BID JULISA Administration Lisinopril 20 mg 05/20/23 10:00 05/23/23 09:54 Lisinopril 20 Mg Tablet PO 20 mg DAILY JULISA Administration Miconazole Nitrate 1 applic 05/21/23 22:00 05/23/23 09:45 Miconazole Nitrate 43 Gm Bottle TOPICAL 1 applic BID JULISA Administration Protocol Senna/Docusate Sodium 2 tablet 05/19/23 22:00 05/23/23 09:46 Senna/Docusate Sodium 1 Tablet PO Not Given BID JULISA Tramadol HCl 50 mg 05/21/23 22:06 05/23/23 06:40 Tramadol 50 Mg Tablet PO 50 mg Q6H PRN PRN Administration Pain Score 4-10 Tuberculin PPD 0.1 ml 05/27/23 10:00 Tuberculin,Purif.Prot.Deriv. 50 Tu/Ml Vial ID 05/27/23 10:01 X1 ONE Problem List (Updated 05/19/23 @ 17:[address] India Brito, DO) Calcaneal spur of left foot (Acute) Post-nasal drainage (Acute) Normochromic normocytic anemia (Acute) Hyperglycemia (Acute) Venous insufficiency of both lower extremities (Acute) Bilateral calcaneal spurs (Acute) Plantar fasciitis (Acute) Left ankle sprain (Acute) Chronic renal failure, stage 3a (Acute) Physical debility (Acute) Contusion of left knee (Acute) Syncope (Acute) Closed head injury (Acute) DDD (degenerative disc disease), lumbar (Chronic) Vital Signs Temp Pulse Resp BP Pulse Ox O2 Del Method 96.9 F L 60 18 125/63 H 97 Room Air 05/23/23 13:27 05/23/23 13:27 05/23/23 13:27 05/23/23 13:27 05/23/23 13:27 05/23/23 13:27 Oxygen Delivery Method Room Air Weight: 103.873 kg Body Mass Index (BMI) 43.2 Sodium 140 mmol/L (136-145) 05/20/23 06:44 Potassium 4.0 mmol/L (3.5-5.1) 05/20/23 06:44 Chloride 110 mmol/L (98-107) H 05/20/23 06:44 Carbon Dioxide 23.0 mmol/L (21.0-32.0) 05/20/23 06:44 Anion Gap 7 (5-15) 05/20/23 06:44 BUN 39 mg/dL (7-18) H 05/20/23 06:44 Creatinine 1.10 mg/dL (0.55-1.02) H 05/20/23 06:44 Est GFR (MDRD) Af Amer 61 mL/min (>60) 05/20/23 06:44 Est GFR (MDRD) Non-Af 51 mL/min (>60) L 05/20/23 06:44 BUN/Creatinine Ratio 35.5 RATIO (10-20) H 05/20/23 06:44 Glucose 132 mg/dL (74-106) H 05/20/23 06:44 Assessment/Plan: 1. Pain: acetaminophen 1000 mg PO Q8H, tramadol 50 mg PO Q6H PRN pain, arthritis pain compound, 1 application topically TID. The patient has used 2 PRN doses of tramadol this admission. Please continue to monitor for PRN medication usage and pain control, LFTs (AST/ALT = 21/26 U/L on 03/20/23), renal function (serum creatinine 1.10 mg/dL with creatinine clearance ~ 31 on 05/20/23), for seizures, for syncope/falls (tramadol Beer's criteria), for sedation/drowsiness and constipation. 2. Bowel: senna/docusate 2 tablets PO BID. The patient has not had a documented bowel movement this admission. Please continue to monitor for constipation/diarrhea. Please consider adding a medication such as magnesium citrate 300 mL PO PRN constipation if the patient does not have a bowel movement. 3. DVT prophylaxis: enoxaparin 40 mg SQ daily. Please continue to monitor for s/s of a DVT such as redness/swelling/erythema especially in the extremities, for bleeding, bruising, hemoglobin level (Hgb = 9.8 g/dL on 05/20/23), platelet count (Plt = 247 K/mm3 on 05/20/23) and renal function (serum creatinine 1.10 mg/dL with creatinine clearance ~ 31 on 05/20/23) 4. Hypertension: lisinopril 20 mg PO daily. Please continue to monitor blood pressures (recent range 109-160/46-63 mmHg), potassium level (K = 4.0 mmol/L on 05/20/23), renal function (serum creatinine 1.10 mg/dL with creatinine clearance ~ 31 on 05/20/23), and for cough and angioedema. 5. Vitamin D deficiency: cholecalciferol 50 mcg PO daily. Please continue to monitor for s/s of vitamin D deficiency as well as vitamin D level (vitamin D level = 38.4 ng/mL on 03/20/23). 6. Calcium deficiency: calcium 500 mg PO daily with breakfast. Please continue to monitor calcium level (Ca = 9.0 mg/dL on 05/20/23). 7. Skin protection/tinea corporis: calmoseptine 1 application topically BID, miconazole powder 1 application topically BID. Please continue to monitor for skin integrity and resolution of tinea corporis. 8. Dry nostrils: ipratropium bromide nasal spray 2 sprays nasally BID. Please continue to monitor for nasal irritation/dryness. Assessment/Plan for indications treated with psychotropic medications: N/A Medical chart and medication regimen reviewed. The following medication irregularities or issues were identified: N/A Date Date of Note:: 05/23/23 Documented by User: Dr. Steve Falcon MD 05/23/23 17:25 TCU RX Drug Regimen Review Provider Comments Provider responsibility Provider Comments to Recommendations by Pharmacy: Agree
[2023-05-23 20:17] VITALS: PULSE 76; RESP 17; O2SAT 97
[2023-05-24] MEDS: Arthritis Pain Compound 60 CLICK TUBE TOPICAL ×3 (05:31→21:34)
[2023-05-24] MEDS: Enoxaparin 40 MG/0.4 ML Syringe SC (05:31)
[2023-05-24] MEDS: Acetaminophen 500 MG Tablet 1000 MG PO ×3 (05:31→21:35)
[2023-05-24] MEDS: Miconazole Nitrate 43 GM Bottle 1 APPLIC TOPICAL ×2 (07:52→21:35)
[2023-05-24] MEDS: Calcium (Elemental) 500 MG Tablet PO (07:53)
[2023-05-24] MEDS: Cholecalciferol (VIT D3) 25 MCG TABLET (1,000 UNITS) 50 MCG PO (07:53)
[2023-05-24] MEDS: Lisinopril 20 MG Tablet PO (07:53)
[2023-05-24] MEDS: Senna/Docusate Sodium 1 Tablet 2 TABLET PO (07:53)
[2023-05-24] MEDS: Menthol/Lanolin/Calamine/Znox 113 GM Tube 1 APPLIC TOPICAL ×2 (07:54→21:40)
[2023-05-24] MEDS: Ipratropium Bromide 0.06% NASAL SPRAY 2 SPRAY NASAL ×2 (07:54→21:34)
--- NOTE | 2023-05-24 10:46 | CASEMGMT ---
Social Work IDT met with patient and son via conference call for care plan meeting. Discussed patient's progress in PT/OT/SN. Educated to [facility] insurance with NRD 05/31, EDC 06/03. Pt confirmed DC plan is to return home with son and DIL. SW to coordinate any DC needs. SW inquired about contact information for advanced directives. Son to get it from brother and let this worker know. Will continue to follow. Nayely Lee, MIDDLE SCHOOL HISTORY TEACHER NETWORK LIAISON
[2023-05-24 13:45] VITALS: BP 134/56; PULSE 65; RESP 16; TEMP 36.2; O2SAT 99
[2023-05-24] MEDS: traMADol 50 MG Tablet PO (21:34)
[2023-05-25] MEDS: Acetaminophen 500 MG Tablet 1000 MG PO ×3 (06:31→21:48)
[2023-05-25] MEDS: Enoxaparin 40 MG/0.4 ML Syringe SC (06:31)
[2023-05-25] MEDS: Arthritis Pain Compound 60 CLICK TUBE TOPICAL ×3 (06:35→21:50)
[2023-05-25] MEDS: Cholecalciferol (VIT D3) 25 MCG TABLET (1,000 UNITS) 50 MCG PO (08:18)
[2023-05-25] MEDS: Senna/Docusate Sodium 1 Tablet 2 TABLET PO (08:18)
[2023-05-25] MEDS: Calcium (Elemental) 500 MG Tablet PO (08:19)
[2023-05-25] MEDS: Ipratropium Bromide 0.06% NASAL SPRAY 2 SPRAY NASAL ×2 (08:19→21:48)
[2023-05-25] MEDS: Lisinopril 20 MG Tablet PO (08:19)
[2023-05-25] MEDS: Miconazole Nitrate 43 GM Bottle 1 APPLIC TOPICAL ×2 (08:20→21:48)
[2023-05-25] MEDS: traMADol 50 MG Tablet PO (08:22)
[2023-05-25] MEDS: Menthol/Lanolin/Calamine/Znox 113 GM Tube 1 APPLIC TOPICAL ×2 (12:13→21:49)
[2023-05-25 14:39] VITALS: BP 127/74; PULSE 62; RESP 14; TEMP 35.8; O2SAT 98
[2023-05-25 21:57] VITALS: PULSE 64; O2SAT 99
[2023-05-26] MEDS: Acetaminophen 500 MG Tablet 1000 MG PO ×3 (06:05→21:46)
[2023-05-26] MEDS: Enoxaparin 40 MG/0.4 ML Syringe SC (06:09)
--- NOTE | 2023-05-26 09:11 | NURSING ---
Pest Control Pilot Note; MDS Complete
[2023-05-26] MEDS: Ipratropium Bromide 0.06% NASAL SPRAY 2 SPRAY NASAL ×2 (09:30→21:45)
[2023-05-26] MEDS: Calcium (Elemental) 500 MG Tablet PO (09:30)
[2023-05-26] MEDS: Senna/Docusate Sodium 1 Tablet 2 TABLET PO (09:31)
[2023-05-26] MEDS: Cholecalciferol (VIT D3) 25 MCG TABLET (1,000 UNITS) 50 MCG PO (09:32)
[2023-05-26] MEDS: Miconazole Nitrate 43 GM Bottle 1 APPLIC TOPICAL ×2 (09:33→21:46)
[2023-05-26] MEDS: Arthritis Pain Compound 60 CLICK TUBE TOPICAL ×3 (09:33→21:45)
[2023-05-26] MEDS: Lisinopril 20 MG Tablet PO (09:34)
[2023-05-26] MEDS: Menthol/Lanolin/Calamine/Znox 113 GM Tube 1 APPLIC TOPICAL ×2 (09:38→21:49)
[2023-05-26 09:41] VITALS: BP 116/56; PULSE 66
--- NOTE | 2023-05-26 12:16 | CASEMGMT ---
Social Work BIMS () and PHQ-9 (10/24) completed for MDS assessment. Nayely Lee MSW CONTAINER CRANE OPERATOR
[2023-05-26 16:00] VITALS: BP 168/68; PULSE 73; RESP 14; TEMP 36.4; O2SAT 99
[2023-05-27] MEDS: Enoxaparin 40 MG/0.4 ML Syringe SC (05:37)
[2023-05-27] MEDS: Arthritis Pain Compound 60 CLICK TUBE TOPICAL ×3 (05:37→21:21)
[2023-05-27] MEDS: Acetaminophen 500 MG Tablet 1000 MG PO ×3 (05:37→21:20)
[2023-05-27] MEDS: Calcium (Elemental) 500 MG Tablet PO (09:01)
[2023-05-27 09:02] LABS: Absolute Lymphocyte Count 2.65 X10^3/uL (0.83-4.51); Absolute Neutrophil Count 3.6 X10^3/uL (2.0-7.7); Basophil# 0.06 X10^3/uL; Basophil% 0.8 % (0-1); Eosinophil# 0.32 X10^3/uL; Eosinophils% 4.4 % (0-5); Hematocrit 30.7 % (37-47); Hemoglobin 9.6 g/dL (12.0-15.0); Lymphocyte # 2.65 X10^3/ul (0.83-4.51); Lymphocyte % 36.8 % (19-41); Mean Corp Hgb Conc 31.3 g/dL (32-36); Mean Corpuscular Hgb 30.9 pg (27.0-32.0); Mean Corpuscular Volume 98.7 fL (81-99); Mean Platelet Vol. 10.2 fl (6.2-12.0); Monocyte# 0.56 X10^3/uL; Monocyte% 7.8 % (0-10); NRBC Flagged by Analyzer 0 % (0-5); Neutrophil # 3.56 X10^3/uL (2.7-7.7); Neutrophil % 49.5 % (47-70); Platelet Count 312 K/mm3 (150-450); RBC Distribution Width CV 13.1 % (11.6-14.6); RBC Distribution Width SD 47.3 fl (35.1-43.9); Red Blood Count 3.11 M/mm3 (4.2-5.4); White Blood Count 7.2 K/mm3 (4.4-11.0)
[2023-05-27] MEDS: Senna/Docusate Sodium 1 Tablet 2 TABLET PO (09:02)
[2023-05-27] MEDS: Lisinopril 20 MG Tablet PO (09:03)
[2023-05-27] MEDS: Miconazole Nitrate 43 GM Bottle 1 APPLIC TOPICAL ×2 (09:04→21:22)
[2023-05-27] MEDS: Cholecalciferol (VIT D3) 25 MCG TABLET (1,000 UNITS) 50 MCG PO (09:04)
[2023-05-27] MEDS: Ipratropium Bromide 0.06% NASAL SPRAY 2 SPRAY NASAL ×2 (09:05→21:21)
[2023-05-27] MEDS: Menthol/Lanolin/Calamine/Znox 113 GM Tube 1 APPLIC TOPICAL ×2 (09:06→21:22)
[2023-05-27 09:46] LABS: Anion Gap 5 (5-15); BUN 48 mg/dL (7-18); BUN/Creat Ratio 47.1 RATIO (10-20); Calcium,Total 9.2 mg/dL (8.5-10.1); Chloride 111 mmol/L (98-107); Creatinine, Serum 1.02 mg/dL (0.55-1.02); EST Glomerular Filtration Rate 55 mL/min (>60); Est Glom Filt Rate - Afr Amer 67 mL/min (>60); Estimated Creatinine Clearance 33.19 ml/min; Glucose 115 mg/dL (74-106); Potassium 3.9 mmol/L (3.5-5.1); Sodium Level 141 mmol/L (136-145)
[2023-05-27 10:00] VITALS: PULSE 65; RESP 16; O2SAT 98
[2023-05-27] MEDS: Tuberculin,Purif.prot.deriv. 50 TU/ML Vial 0.1 ML ID (12:27)
[2023-05-27] MEDS: Iron Polysaccharide Complex 150 MG CAPSULE PO ×2 (12:41→12:44)
[2023-05-27 14:16] VITALS: BP 128/56; PULSE 78; RESP 16; TEMP 36.8; O2SAT 95
[2023-05-27] MEDS: MINERALS PO (21:21)
[2023-05-27] MEDS: VITS A C E PO (21:21)
[2023-05-27] MEDS: LUTEIN PO (21:21)
[2023-05-28] MEDS: Acetaminophen 500 MG Tablet 1000 MG PO ×3 (05:21→21:40)
--- NOTE | 2023-05-28 05:22 | NURSING ---
Pt wishes to have arthritis compound cream applied after bathing this am. Will report to oncoming nurse.
[2023-05-28 07:03] LABS: Hematocrit 29.3 % (37-47); Hemoglobin 9.1 g/dL (12.0-15.0)
[2023-05-28] MEDS: Cholecalciferol (VIT D3) 25 MCG TABLET (1,000 UNITS) 50 MCG PO (10:02)
[2023-05-28] MEDS: Arthritis Pain Compound 60 CLICK TUBE TOPICAL ×3 (10:02→21:43)
[2023-05-28] MEDS: Senna/Docusate Sodium 1 Tablet 2 TABLET PO (10:04)
[2023-05-28] MEDS: Ipratropium Bromide 0.06% NASAL SPRAY 2 SPRAY NASAL ×2 (10:04→21:43)
[2023-05-28] MEDS: Iron Polysaccharide Complex 150 MG CAPSULE PO (10:05)
[2023-05-28] MEDS: VITS A C E PO ×2 (10:06→21:42)
[2023-05-28] MEDS: LUTEIN PO ×2 (10:06→21:42)
[2023-05-28] MEDS: MINERALS PO ×2 (10:06→21:42)
[2023-05-28] MEDS: Lisinopril 20 MG Tablet PO (10:07)
[2023-05-28] MEDS: Calcium (Elemental) 500 MG Tablet PO (10:07)
[2023-05-28] MEDS: Menthol/Lanolin/Calamine/Znox 113 GM Tube 1 APPLIC TOPICAL ×2 (10:07→21:46)
[2023-05-28] MEDS: Miconazole Nitrate 43 GM Bottle 1 APPLIC TOPICAL ×2 (10:08→21:43)
[2023-05-28 14:12] VITALS: BP 150/41; PULSE 61; RESP 18; TEMP 36.8; O2SAT 98
[2023-05-29] MEDS: Acetaminophen 500 MG Tablet 1000 MG PO ×3 (06:37→21:01)
[2023-05-29] MEDS: Arthritis Pain Compound 60 CLICK TUBE TOPICAL ×3 (06:38→21:01)
[2023-05-29] MEDS: Ipratropium Bromide 0.06% NASAL SPRAY 2 SPRAY NASAL ×2 (09:42→21:01)
[2023-05-29] MEDS: Senna/Docusate Sodium 1 Tablet 2 TABLET PO ×2 (09:43→21:00)
[2023-05-29] MEDS: Cholecalciferol (VIT D3) 25 MCG TABLET (1,000 UNITS) 50 MCG PO (09:43)
[2023-05-29] MEDS: Lisinopril 20 MG Tablet PO (09:44)
[2023-05-29] MEDS: Miconazole Nitrate 43 GM Bottle 1 APPLIC TOPICAL ×2 (09:45→21:02)
[2023-05-29] MEDS: LUTEIN PO ×2 (09:45→21:00)
[2023-05-29] MEDS: MINERALS PO ×2 (09:45→21:00)
[2023-05-29] MEDS: VITS A C E PO ×2 (09:45→21:00)
[2023-05-29] MEDS: Calcium (Elemental) 500 MG Tablet PO (09:46)
[2023-05-29] MEDS: Menthol/Lanolin/Calamine/Znox 113 GM Tube 1 APPLIC TOPICAL ×2 (09:47→21:03)
--- NOTE | 2023-05-29 13:47 | NURSING ---
Updated patient in room and family by phone that unit has covid positive patient.
[2023-05-29 15:30] VITALS: BP 142/47; PULSE 66; RESP 15; TEMP 36.3; O2SAT 99
[2023-05-29] MEDS: traMADol 50 MG Tablet PO (21:07)
[2023-05-30 05:47] LABS: Hematocrit 29.7 % (37-47); Hemoglobin 9.3 g/dL (12.0-15.0)
[2023-05-30] MEDS: Acetaminophen 500 MG Tablet 1000 MG PO ×3 (06:20→20:34)
[2023-05-30] MEDS: Cholecalciferol (VIT D3) 25 MCG TABLET (1,000 UNITS) 50 MCG PO (08:26)
[2023-05-30] MEDS: Lisinopril 20 MG Tablet PO (08:26)
[2023-05-30] MEDS: Senna/Docusate Sodium 1 Tablet 2 TABLET PO (08:27)
[2023-05-30] MEDS: VITS A C E PO ×2 (08:27→20:33)
[2023-05-30] MEDS: MINERALS PO ×2 (08:27→20:33)
[2023-05-30] MEDS: LUTEIN PO ×2 (08:27→20:33)
[2023-05-30] MEDS: Miconazole Nitrate 43 GM Bottle 1 APPLIC TOPICAL ×2 (08:28→20:39)
[2023-05-30] MEDS: Menthol/Lanolin/Calamine/Znox 113 GM Tube 1 APPLIC TOPICAL ×2 (08:28→20:39)
[2023-05-30] MEDS: Iron Polysaccharide Complex 150 MG CAPSULE PO (08:28)
[2023-05-30] MEDS: Ipratropium Bromide 0.06% NASAL SPRAY 2 SPRAY NASAL ×2 (08:29→20:35)
[2023-05-30] MEDS: Calcium (Elemental) 500 MG Tablet PO (08:29)
[2023-05-30 08:34] VITALS: BP 132/53; PULSE 71
[2023-05-30] MEDS: Arthritis Pain Compound 60 CLICK TUBE TOPICAL ×3 (11:57→20:34)
[2023-05-30 13:55] VITALS: BMI 43.8
[2023-05-30 15:17] VITALS: BP 144/59; PULSE 69; RESP 14; TEMP 36.4; O2SAT 96
[2023-05-30 20:41] VITALS: O2SAT 96
[2023-05-31] MEDS: Arthritis Pain Compound 60 CLICK TUBE TOPICAL ×3 (05:34→21:00)
[2023-05-31] MEDS: Acetaminophen 500 MG Tablet 1000 MG PO ×3 (05:34→21:00)
[2023-05-31 05:41] LABS: Hematocrit 29.2 % (37-47); Hemoglobin 9.1 g/dL (12.0-15.0)
[2023-05-31] MEDS: Iron Polysaccharide Complex 150 MG CAPSULE PO (08:06)
[2023-05-31] MEDS: Ipratropium Bromide 0.06% NASAL SPRAY 2 SPRAY NASAL ×2 (08:06→20:56)
[2023-05-31] MEDS: Calcium (Elemental) 500 MG Tablet PO (08:06)
[2023-05-31] MEDS: Cholecalciferol (VIT D3) 25 MCG TABLET (1,000 UNITS) 50 MCG PO (08:07)
[2023-05-31] MEDS: Lisinopril 20 MG Tablet PO (08:08)
[2023-05-31] MEDS: Senna/Docusate Sodium 1 Tablet 2 TABLET PO (08:08)
[2023-05-31] MEDS: MINERALS PO ×2 (08:13→21:00)
[2023-05-31] MEDS: Menthol/Lanolin/Calamine/Znox 113 GM Tube 1 APPLIC TOPICAL ×2 (08:13→21:02)
[2023-05-31] MEDS: VITS A C E PO ×2 (08:13→21:00)
[2023-05-31] MEDS: Miconazole Nitrate 43 GM Bottle 1 APPLIC TOPICAL ×2 (08:13→21:01)
[2023-05-31] MEDS: LUTEIN PO ×2 (08:13→21:00)
--- NOTE | 2023-05-31 15:11 | CASEMGMT ---
Social Work Insurance issued LCD 06/02, DC 06/03. Spoke with pt and pt agreeable to DC. Pt requesting [facility] PT/OT. SW offered list of agencies but pt denied. No DME needs. Son to transport. SW phoned referral to [facility] for PT/OT. Plan: DC home with family 06/03, [facility] PT/OT MATTHEW TsaiW
[2023-05-31 15:25] VITALS: BP 154/68; PULSE 71; RESP 18; TEMP 36.7; O2SAT 98
--- NOTE | 2023-05-31 20:04 | DS.PCM_ITS ---
Providers Date of Admission: 05/19/23 Primary Care Physician: Dr. Steve Falcon MD Reason For Visit: WEAKNESS, UTI Diagnosis Discharge Diagnosis (1) Physical debility: Status: Acute Code(s): R53.81 - Other malaise (2) Syncope: Status: Resolved Code(s): R55 - Syncope and collapse Qualifiers: Syncope type: vasovagal syncope Qualified Code(s): R55 - Syncope and collapse (3) Closed head injury: Status: Resolved Code(s): S09.90XA - Unspecified injury of head, initial encounter Qualifiers: Encounter type: subsequent encounter Qualified Code(s): S09.90XD - Unspecified injury of head, subsequent encounter (4) Chronic renal failure, stage 3a: Status: Acute Code(s): N18.31 - Chronic kidney disease, stage 3a (5) Calcaneal spur of left foot: Status: Acute Code(s): M77.32 - Calcaneal spur, left foot (6) Left ankle sprain: Status: Acute Code(s): S93.402A - Sprain of unspecified ligament of left ankle, initial encounter Qualifiers: Encounter type: subsequent encounter Involved ligament of ankle: unspe cified ligament Qualified Code(s): S93.402D - Sprain of unspecified ligament of left ankle, subsequent encounter (7) Plantar fasciitis: Status: Acute Code(s): M72.2 - Plantar fascial fibromatosis (8) Bilateral calcaneal spurs: Status: Acute Code(s): M77.31 - Calcaneal spur, right foot; M77.32 - Calcaneal spur, left foot (9) Venous insufficiency of both lower extremities: Status: Acute Code(s): I87.2 - Venous insufficiency (chronic) (peripheral) (10) Hyperglycemia: Status: Acute Code(s): R73.9 - Hyperglycemia, unspecified (11) Contusion of left knee: Status: Acute Code(s): S80.02XA - Contusion of left knee, initial encounter Qualifiers: Encounter type: subsequent encounter Qualified Code(s): S80.02XD - Contusion of left knee, subsequent encounter (12) Normochromic normocytic anemia: Status: Acute Code(s): D64.9 - Anemia, unspecified (13) Post-nasal drainage: Status: Acute Code(s): R09.82 - Postnasal drip (14) DDD (degenerative disc disease), lumbar: Status: Chronic Code(s): M51.36 - Other intervertebral disc degeneration, lumbar region Medications at Discharge Home Medications Vits A,C,E/Lutein/Minerals [Healthy Eyes Tablet] 1 ea PO BID ##0 05/31/23 acetaminophen 500 mg tablet 1,000 mg (2 x 500 mg) PO Q8 #0 tabs 05/31/23 calcium carbonate 500 mg calcium (1,250 mg) tablet (Oyster Shell Calcium 500) 500 mg PO BREAKFAST #0 tabs 05/31/23 cholecalciferol (vitamin D3) 25 mcg (1,000 unit) tablet 50 mcg (2 x 25 mcg (1,000 unit)) PO DAILY #0 tabs 05/31/23 ipratropium bromide 42 mcg (0.06 %) nasal spray 2 spray NASAL BID 30 days #15 mL 05/31/23 lisinopril 20 mg tablet 20 mg PO DAILY #0 tabs 05/31/23 polysaccharide iron complex 150 mg iron capsule (Ferrex) 150 mg PO DAILY 30 days #30 caps 05/31/23 Hospital Course Operations None Procedures None Summary of Care Provided Minutes Spent on Discharge: 35 Hospital Course: 78 year old female with below past medical history hospitalized for syncope, closed head injury, urinary tract infection, acute kidney injury, dehydration, left knee pain, left ankle pain, admitted to TCU with debility, here for rehabilitation, strengthening, prior to discharge home with family. Discharge home with family 06/03/2023, [facility] PT/OT. Physical Exam Const alert General Appearance: cooperative HEENT normocephalic Eyes PERRL and EOMs intact bilaterally Neck supple, no JVD and no carotid bruits Resp normal respiratory effort, normal air movement and clear to auscultation bilaterally Cardio regular rate and regular rhythm GI normal to inspection, nondistended, normoactive bowel sounds, non-tender and non-distended Extremity normal capillary refill General Extremity: Negative for edema Skin no rashes or lesions noted General Skin Exam: no breakdown Psych affect normal Appearance: appropriate Weight / BMI Weight Weight: 105.262 kg Body Mass Index (BMI) 43.8 ABG / Lab / Microbiology Data 05/31/23 05:15 05/27/23 08:00 Laboratory: Laboratory Results - last 24 hr 05/31/23 05:15: Hgb 9.1 L, Hct 29.2 L Microbiology: Microbiology 05/30/23 08:20 Stool Stool Occult Blood (KSENIA) - Final 05/29/23 12:20 Nasal Secretion SARS-CoV-2 Antigen (Rapid) - Final 05/26/23 06:35 Nasal Secretion SARS-CoV-2 Antigen (Rapid) - Final 05/23/23 06:30 Nasal Secretion SARS-CoV-2 Antigen (Rapid) - Final 05/19/23 16:50 Nasal Secretion SARS-CoV-2 Antigen (Rapid) - Final D/C Instructions Discharge Diet: No restrictions Discharge Activity: Return to Normal Activity, May Shower and Use Walker Weight Bearing Status: Weight bearing as tolerated Call your doctor if you observe: Fever of 101 or Higher, Inability to urinate, Inability to have a bowel movement, Shortness of breath, Dizziness, Fainting spells, Swelling in the ankles, Chest pain and Uncontrolled pain Additional Instructions: Discharge home with family 06/03/2023, [facility] PT/OT. Meaningful Use Info Meaningful Use Diagnoses (Choose all that apply): None applicable Discharge Plan Admission Admit Date/Time: 05/19/23 14:05 Primary Reason for Your Visit: Debility. Attending Provider: India Brito Primary Care Provider: Setve Falcon Chi Instructions Additional Instructions / Restrictions: Discharge home with family 06/03/2023, [facility] PT/OT. Discharge Orders/Prescriptions Prescriptions: New acetaminophen 500 mg Tablet 1,000 mg PO Q8 Qty: 0 0RF calcium carbonate [Oyster Shell Calcium 500] 500 mg calcium (1,250 mg) Tablet 500 mg PO BREAKFAST Qty: 0 0RF cholecalciferol (vitamin D3) 25 mcg (1,000 unit) Tablet 50 mcg PO DAILY Qty: 0 0RF polysaccharide iron complex [Ferrex 150] 150 mg iron Capsule 150 mg PO DAILY 30 Days Qty: 30 0RF ipratropium bromide 42 mcg (0.06 %) Hana,Non-Aerosol 2 spray NASAL BID 30 Days Qty: 15 0RF lisinopril 20 mg Tablet 20 mg PO DAILY Qty: 0 0RF Vits A,C,E/Lutein/Minerals [Healthy Eyes Tablet] 1 ea PO BID Qty: 0 0RF Discontinued lisinopril 20 mg tablet 20 mg PO QDAY vit A,C and B-koiwmb-qvucsyog 1 EACH tablet 1 ea PO DAILY calcium 600 mg Capsule 600 mg PO DAILY ascorbic acid (vitamin C) [Vitamin C] 500 mg Tablet 500 mg PO DAILY cholecalciferol (vitamin D3) 100 mcg (4,000 unit) Capsule 100 mcg PO DAILY Hold Instructions: not taking currently triamterene-hydrochlorothiazid 37.5-25 mg tablet 1 tab PO DAILY Patient Comments: TAKE 1 TABLET BY MOUTH DAILY cefdinir 300 mg Capsule 300 mg PO Q12 Qty: 0 0RF acetaminophen 500 mg capsule 1,000 mg PO Q8 Qty: 0 0RF melatonin 3 mg Tablet 3 mg PO QHS PRN PRN (Reason: Insomnia) Qty: 0 0RF cefdinir 300 mg capsule 300 mg PO BID Qty: 10 0RF Referrals / Follow Up: Steve Falcon Chi, MD [Primary Care Provider] - Within 1 Week (Please see if pt can be seen in the office 06/05 for HHC to see 06/06 - Thank you, Nayely) Disposition Disposition (needs filled in before D/C Order can be placed): Home Health Service
[2023-06-01] MEDS: Acetaminophen 500 MG Tablet 1000 MG PO ×3 (05:09→22:00)
[2023-06-01] MEDS: Arthritis Pain Compound 60 CLICK TUBE TOPICAL ×3 (05:09→21:57)
[2023-06-01] MEDS: Menthol/Lanolin/Calamine/Znox 113 GM Tube 1 APPLIC TOPICAL ×2 (08:35→21:57)
[2023-06-01] MEDS: Calcium (Elemental) 500 MG Tablet PO (08:35)
[2023-06-01] MEDS: Lisinopril 20 MG Tablet PO (08:35)
[2023-06-01] MEDS: Iron Polysaccharide Complex 150 MG CAPSULE PO (08:35)
[2023-06-01] MEDS: Ipratropium Bromide 0.06% NASAL SPRAY 2 SPRAY NASAL ×2 (08:35→21:57)
[2023-06-01] MEDS: Cholecalciferol (VIT D3) 25 MCG TABLET (1,000 UNITS) 50 MCG PO (08:35)
[2023-06-01] MEDS: Miconazole Nitrate 43 GM Bottle 1 APPLIC TOPICAL ×2 (08:36→21:58)
[2023-06-01] MEDS: LUTEIN PO ×2 (08:38→22:01)
[2023-06-01] MEDS: MINERALS PO ×2 (08:38→22:01)
[2023-06-01] MEDS: VITS A C E PO ×2 (08:38→22:01)
[2023-06-01 08:48] VITALS: BP 123/59; PULSE 73; RESP 16; TEMP 36.4; O2SAT 97
--- NOTE | 2023-06-01 10:24 | MDS.RN ---
Information for the mds was obtained from review of the clinical record, interview of resident, staff, and direct observation of resident's care.
--- NOTE | 2023-06-01 11:41 | NURSING ---
left message with Dr Falcon office regarding pneumo vaccine, guidance secretary out of office until tuesday 06/05
--- NOTE | 2023-06-01 14:21 | NURSING ---
Updated patient that staff and patient tested covid positive. She said she will update her family.
[2023-06-01 17:15] VITALS: PULSE 86; RESP 16; O2SAT 98
[2023-06-02] MEDS: Arthritis Pain Compound 60 CLICK TUBE TOPICAL ×3 (05:09→21:25)
[2023-06-02] MEDS: Acetaminophen 500 MG Tablet 1000 MG PO ×3 (05:10→21:25)
[2023-06-02] MEDS: Calcium (Elemental) 500 MG Tablet PO (08:31)
[2023-06-02] MEDS: Ipratropium Bromide 0.06% NASAL SPRAY 2 SPRAY NASAL ×2 (09:21→21:26)
[2023-06-02] MEDS: Menthol/Lanolin/Calamine/Znox 113 GM Tube 1 APPLIC TOPICAL ×2 (09:22→21:27)
[2023-06-02] MEDS: Miconazole Nitrate 43 GM Bottle 1 APPLIC TOPICAL ×2 (09:23→21:27)
[2023-06-02] MEDS: Iron Polysaccharide Complex 150 MG CAPSULE PO (09:23)
[2023-06-02] MEDS: Senna/Docusate Sodium 1 Tablet 2 TABLET PO (09:23)
[2023-06-02] MEDS: VITS A C E PO ×2 (09:24→21:27)
[2023-06-02] MEDS: LUTEIN PO ×2 (09:24→21:27)
[2023-06-02] MEDS: MINERALS PO ×2 (09:24→21:27)
[2023-06-02] MEDS: Lisinopril 20 MG Tablet PO (09:24)
[2023-06-02] MEDS: Cholecalciferol (VIT D3) 25 MCG TABLET (1,000 UNITS) 50 MCG PO (09:24)
--- NOTE | 2023-06-02 11:32 | MDS.RN ---
Pain interview for mds romy 06/03/23 completed.
--- NOTE | 2023-06-02 11:33 | MDS.RN ---
Pain interview for mds romy 06/04/23 completed.
[2023-06-02 14:25] VITALS: BP 112/56; PULSE 70; RESP 15; TEMP 36.1; O2SAT 98
[2023-06-03] MEDS: Acetaminophen 500 MG Tablet 1000 MG PO (05:33)
[2023-06-03] MEDS: Arthritis Pain Compound 60 CLICK TUBE TOPICAL (05:34)
[2023-06-03] MEDS: Calcium (Elemental) 500 MG Tablet PO (08:13)
[2023-06-03 08:16] VITALS: BP 153/62; PULSE 71; RESP 18; TEMP 36.7; O2SAT 96
[2023-06-03 08:40] VITALS: PULSE 71; RESP 18; O2SAT 96
[2023-06-03 08:49] LABS: Absolute Lymphocyte Count 2.91 X10^3/uL (0.83-4.51); Absolute Neutrophil Count 4.1 X10^3/uL (2.0-7.7); Basophil# 0.08 X10^3/uL; Eosinophil# 0.27 X10^3/uL; Eosinophils% 3.4 % (0-5); Hematocrit 32.4 % (37-47); Lymphocyte # 2.91 X10^3/ul (0.83-4.51); Lymphocyte % 36.7 % (19-41); Mean Corp Hgb Conc 30.9 g/dL (32-36); Mean Corpuscular Hgb 30.6 pg (27.0-32.0); Mean Corpuscular Volume 99.1 fL (81-99); Mean Platelet Vol. 10.2 fl (6.2-12.0); Monocyte# 0.55 X10^3/uL; Monocyte% 6.9 % (0-10); NRBC Flagged by Analyzer 0 % (0-5); Neutrophil # 4.07 X10^3/uL (2.7-7.7); Neutrophil % 51.4 % (47-70); Platelet Count 363 K/mm3 (150-450); RBC Distribution Width CV 13.4 % (11.6-14.6); RBC Distribution Width SD 48.7 fl (35.1-43.9); Red Blood Count 3.27 M/mm3 (4.2-5.4); White Blood Count 7.9 K/mm3 (4.4-11.0)
[2023-06-03 09:02] LABS: Anion Gap 7 (5-15); BUN 38 mg/dL (7-18); BUN/Creat Ratio 35.8 RATIO (10-20); Calcium,Total 9.1 mg/dL (8.5-10.1); Chloride 109 mmol/L (98-107); Creatinine, Serum 1.06 mg/dL (0.55-1.02); EST Glomerular Filtration Rate 53 mL/min (>60); Est Glom Filt Rate - Afr Amer 64 mL/min (>60); Estimated Creatinine Clearance 31.94 ml/min; Glucose 120 mg/dL (74-106); Potassium 3.8 mmol/L (3.5-5.1); Sodium Level 140 mmol/L (136-145)
== END 2023-06-03 09:00 | disposition home health service (06) | DRG 949 ==
PROVIDERS: Admitting Provider Internal Medicine; PCP Family Medicine Geriatric Medicine; Referring Provider Internal Medicine; Visit Provider Internal Medicine
DX: S93.402D Sprain of unspecified ligament of left ankle, subsequent encounter (principal); Z68.41 Body mass index [BMI] 40.0-44.9, adult; N39.0 Urinary tract infection, site not specified; B35.4 Tinea corporis; E66.01 Morbid (severe) obesity due to excess calories; D64.9 Anemia, unspecified; I12.9 Hypertensive chronic kidney disease with stage 1 through stage 4 chronic kidney disease, or unspecified chronic kidney disease; N18.31 Chronic kidney disease, stage 3a; M72.2 Plantar fascial fibromatosis; M17.12 Unilateral primary osteoarthritis, left knee; M77.31 Calcaneal spur, right foot; I87.2 Venous insufficiency (chronic) (peripheral); M77.32 Calcaneal spur, left foot; M51.36 Other intervertebral disc degeneration, lumbar region; W18.11XD Fall from or off toilet without subsequent striking against object, subsequent encounter; B96.20 Unspecified Escherichia coli [E. coli] as the cause of diseases classified elsewhere; S80.02XD Contusion of left knee, subsequent encounter; S09.90XD Unspecified injury of head, subsequent encounter; Z79.899 Other long term (current) drug therapy
CPT/HCPCS: 36415; 80048; 82274; 83036; 85014; 85018; 85025; 87811; 97110; 97116; 97162; 97166; 97530; 97535; 97802

== ENCOUNTER → 2023-09-21 | Outpatient (CLI) | payer MEDICARE, SELFPAY ==
--- OUTSIDE RECORDS SUMMARY | 2023-09-21 13:40 | XMS RPT_ITS | CCD ---
Author Name Unknown Address [address] [place] [address] Organization [facility] Care Team Providers Care Appraisal Analyst Name Role Phone MEMO DUFF Mike Unavailable Unavailable Allergies Allergy Classification Reported Allergen(s) Allergy Type Date of Onset Reaction(s) Facility (1 source) Hmg-Coa Reductase Inhibitors (Statins); Translations: [[id number] REDUCTASE INHIBITORS] Propensity to adverse reactions to drug (disorder) 7 [facility] Repository (1 source) Latex; Translations: [LATEX] Propensity to adverse reactions to drug (disorder) 8 [facility] Rep[facility] Problems Problem Classification Problem Date Documented Da te Episodic/Chronic Unclassified (1 source) Encounter for screening mammogram for malignant neoplasm of breast; Translations: [Encounter for screening mammogram for malignant neoplasm of breast] Onset: 07-18-2017 Episodic Results Test Name Value Interpretation Reference Range Facil ity Encounters Encounter Date Encounter Type Care Provider Facility Start: 07-18-2017 Ambulatory [facility] Summary Purpose Family History No Family History Records Found Advance Directives No Advanced Directives Records Found Additional Source Comments INFORMATION SOURCE (unrecogn ized section and content) FOR RECORDS PERTAINING TO PATIENTS WHO ARE OR HAVE BEEN ENROLLED IN A CHEMICAL DEPENDENCY/SUBSTANCEABUSE PROGRAM, SOME INFORMATION MAY BE OMITTED. This clinical summary was aggregated from multiple sources. Caution should be exercised in using it in the provision of clinical care. This summary normalizes information from multiple sources, and as a consequence, information in this document may materially change the coding, format and clinical context of patient data. In addition, data may be omitted in some cases. CLINICAL DECISIONS SHOULD BE BASED ON THE PRIMARY CLINICAL RECORDS. [facility]. provides no warranty or guarantee of the accuracy or completeness of information in this document.
[2023-09-21 14:57] LABS: Absolute Lymphocyte Count 3.26 X10^3/uL (0.83-4.51); Basophil# 0.08 X10^3/uL; Eosinophil# 0.21 X10^3/uL; Eosinophils% 2.6 % (0-5); Hematocrit 35.7 % (37-47); Hemoglobin 11.3 g/dL (12.0-15.0); Lymphocyte # 3.26 X10^3/ul (0.83-4.51); Lymphocyte % 40.3 % (19-41); Mean Corp Hgb Conc 31.7 g/dL (32-36); Mean Corpuscular Hgb 30.5 pg (27.0-32.0); Mean Corpuscular Volume 96.2 fL (81-99); Mean Platelet Vol. 10.5 fl (6.2-12.0); Monocyte# 0.55 X10^3/uL; Monocyte% 6.8 % (0-10); NRBC Flagged by Analyzer 0 % (0-5); Neutrophil # 3.95 X10^3/uL (2.7-7.7); Neutrophil % 48.9 % (47-70); Platelet Count 233 K/mm3 (150-450); RBC Distribution Width CV 13.6 % (11.6-14.6); RBC Distribution Width SD 48.1 fl (35.1-43.9); Red Blood Count 3.71 M/mm3 (4.2-5.4); White Blood Count 8.1 K/mm3 (4.4-11.0)
[2023-09-21 15:10] LABS: Vitamin D,25 Hydroxy 36.7 ng/mL
[2023-09-21 15:16] LABS: ALB/GLOB Ratio 1.1 RATIO (0.9-2.4); AST(SGOT) 19 U/L (15-37); Alanine Aminotransfer ALT/SGPT 20 U/L (13-56); Albumin, Serum 3.9 g/dL (3.2-5.0); Alkaline Phosphatase 71 U/L (45-117); Anion Gap 8 (5-15); BUN 38 mg/dL (7-18); BUN/Creat Ratio 30.4 RATIO (10-20); Calcium,Total 9.1 mg/dL (8.5-10.1); Chloride 111 mmol/L (98-107); Creatinine, Serum 1.25 mg/dL (0.55-1.02); EST Glomerular Filtration Rate 44 mL/min (>60); Est Glom Filt Rate - Afr Amer 53 mL/min (>60); Globulin 3.7 g/dL (2.2-4.2); Glucose 114 mg/dL (74-106); Potassium 4.4 mmol/L (3.5-5.1); Protein, Total 7.6 g/dL (6.4-8.2); Sodium Level 140 mmol/L (136-145); Thyroid Stim Hormone (TSH) 1.56 uIU/mL (0.358-3.74)
== END | disposition home or self-care (01) ==
LOC: POLAB3 13:05
PROVIDERS: PCP Family Medicine Geriatric Medicine; Visit Provider Family Medicine Geriatric Medicine
DX: I10 Essential (primary) hypertension (principal); E55.9 Vitamin D deficiency, unspecified
CPT/HCPCS: 36415; 80053; 82306; 84443; 85025

== ENCOUNTER → 2024-03-26 | Outpatient (CLI) | payer MEDICARE, SELFPAY ==
[2024-03-26 11:11] LABS: Absolute Lymphocyte Count 3.54 X10^3/uL (0.83-4.51); Absolute Neutrophil Count 3.9 X10^3/uL (2.0-7.7); Basophil# 0.07 X10^3/uL; Basophil% 0.8 % (0-1); Eosinophils% 3.5 % (0-5); Hematocrit 35.4 % (37-47); Hemoglobin 11.4 g/dL (12.0-15.0); Lymphocyte # 3.54 X10^3/ul (0.83-4.51); Lymphocyte % 41.5 % (19-41); Mean Corp Hgb Conc 32.2 g/dL (32-36); Mean Corpuscular Hgb 30.7 pg (27.0-32.0); Mean Corpuscular Volume 95.4 fL (81-99); Mean Platelet Vol. 10.1 fl (6.2-12.0); Monocyte# 0.71 X10^3/uL; Monocyte% 8.3 % (0-10); NRBC Flagged by Analyzer 0 % (0-5); Neutrophil # 3.85 X10^3/uL (2.7-7.7); Neutrophil % 45.3 % (47-70); Platelet Count 288 K/mm3 (150-450); RBC Distribution Width CV 13.2 % (11.6-14.6); Red Blood Count 3.71 M/mm3 (4.2-5.4); White Blood Count 8.5 K/mm3 (4.4-11.0)
[2024-03-26 11:52] LABS: Vitamin D,25 Hydroxy 53.2 ng/mL
[2024-03-26 12:00] LABS: ALB/GLOB Ratio 0.9 RATIO (0.9-2.4); AST(SGOT) 16 U/L (15-37); Alanine Aminotransfer ALT/SGPT 19 U/L (13-56); Albumin, Serum 3.7 g/dL (3.2-5.0); Alkaline Phosphatase 79 U/L (45-117); Anion Gap 7 (5-15); BUN 38 mg/dL (7-18); BUN/Creat Ratio 29.5 RATIO (10-20); Calcium,Total 9.7 mg/dL (8.5-10.1); Chloride 110 mmol/L (98-107); Creatinine, Serum 1.29 mg/dL (0.55-1.02); EST Glomerular Filtration Rate 42 mL/min (>60); Est Glom Filt Rate - Afr Amer 51 mL/min (>60); Globulin 4.1 g/dL (2.2-4.2); Glucose 110 mg/dL (74-106); Potassium 5.3 mmol/L (3.5-5.1); Protein, Total 7.8 g/dL (6.4-8.2); Sodium Level 139 mmol/L (136-145); Thyroid Stim Hormone (TSH) 1.57 uIU/mL (0.358-3.74)
== END | disposition home or self-care (01) ==
LOC: POLAB3 10:37
PROVIDERS: PCP Family Medicine Geriatric Medicine; Visit Provider Family Medicine Geriatric Medicine
DX: I10 Essential (primary) hypertension (principal); E55.9 Vitamin D deficiency, unspecified; N39.0 Urinary tract infection, site not specified
CPT/HCPCS: 36415; 80053; 82306; 84443; 85025; 87077; 87086; 87088; 87186

== ENCOUNTER → 2024-03-27 | Outpatient (CLI) | payer MEDICARE, SELFPAY ==
[2024-03-27 17:19] LABS: Anion Gap 5 (5-15); BUN 58 mg/dL (7-18); Chloride 109 mmol/L (98-107); Creatinine, Serum 1.61 mg/dL (0.55-1.02); EST Glomerular Filtration Rate 33 mL/min (>60); Est Glom Filt Rate - Afr Amer 40 mL/min (>60); Glucose 156 mg/dL (74-106); Potassium 4.7 mmol/L (3.5-5.1); Sodium Level 138 mmol/L (136-145)
== END | disposition home or self-care (01) ==
PROVIDERS: PCP Family Medicine Geriatric Medicine; Referring Provider Family Medicine Geriatric Medicine; Visit Provider Family Medicine Geriatric Medicine
DX: E87.5 Hyperkalemia (principal)
CPT/HCPCS: 36415; 80048

== ENCOUNTER → 2024-05-29 | Outpatient (CLI) | payer MEDICARE, SELFPAY ==
--- NOTE | 2024-05-29 09:46 | BI_ITS ---
MAMMOGRAPHY - BILATERAL SCREENING REASON FOR EXAM: Female, 79 years old. Routine annual screening examination. PERTINENT HISTORY: Grandmother with breast cancer. TECHNIQUE: Digital bilateral breast bismark (3D mammographic acquisition) in the CC and MLO projections. 2-D mediolateral oblique (MLO) and craniocaudad (CC) views of both breasts were obtained. CAD: Full Field Digital Mammography with Computer Added Detection was performed. COMPARISON: Comparison is made with prior study May 11, 2023 and May 10, 2022. FINDINGS: Breast Composition: There are scattered areas of fibroglandular density. There are no dominant masses or suspicious calcifications. 2 tissue clip markers are once again seen in the axillary region of the left breast. No other significant abnormalities are identified. There has been no significant change since the prior study. BI/SCRN MAMM (CAD)W/BISMARK BILAT IMPRESSION: Stable bilateral screening mammogram. Yearly follow-up mammogram recommended. (A) ASSESSMENT CATEGORY: BIRADS Category 2: Benign. A letter regarding these results will be sent to the patient by the facility within 30 days. Approximately 10% of breast cancers are not detected by mammography. A normal mammogram should not delay biopsy of a clinically suspicious abnormality. [id number] Electronically Signed: Jonny Juan MD at 10:35 EDT ,
== END | disposition home or self-care (01) ==
LOC: OPBI 09:46
PROVIDERS: PCP Family Medicine Geriatric Medicine; Visit Provider Nurse Practitioner Women's Health
DX: Z12.31 Encounter for screening mammogram for malignant neoplasm of breast (principal)
CPT/HCPCS: 77063; 77067

== ENCOUNTER → 2024-09-25 | Outpatient (CLI) | payer MEDICARE, SELFPAY ==
[2024-09-25 13:01] LABS: Absolute Lymphocyte Count 4.15 X10^3/uL (0.83-4.51); Absolute Neutrophil Count 4.3 X10^3/uL (2.0-7.7); Basophil# 0.07 X10^3/uL; Basophil% 0.7 % (0-1); Eosinophil# 0.21 X10^3/uL; Eosinophils% 2.2 % (0-5); Hematocrit 37.5 % (37-47); Hemoglobin 12.2 g/dL (12.0-15.0); Lymphocyte # 4.15 X10^3/ul (0.83-4.51); Lymphocyte % 44.1 % (19-41); Mean Corp Hgb Conc 32.5 g/dL (32-36); Mean Corpuscular Hgb 30.7 pg (27.0-32.0); Mean Corpuscular Volume 94.2 fL (81-99); Monocyte# 0.67 X10^3/uL; Monocyte% 7.1 % (0-10); NRBC Flagged by Analyzer 0 % (0-5); Neutrophil # 4.27 X10^3/uL (2.7-7.7); Neutrophil % 45.6 % (47-70); Platelet Count 280 K/mm3 (150-450); RBC Distribution Width CV 13.2 % (11.6-14.6); RBC Distribution Width SD 45.8 fl (35.1-43.9); Red Blood Count 3.98 M/mm3 (4.2-5.4); White Blood Count 9.4 K/mm3 (4.4-11.0)
[2024-09-25 13:19] LABS: Vitamin D,25 Hydroxy 81.9 ng/mL
[2024-09-25 13:26] LABS: AST(SGOT) 19 U/L (15-37); Alanine Aminotransfer ALT/SGPT 20 U/L (13-56); Albumin, Serum 3.9 g/dL (3.2-5.0); Alkaline Phosphatase 78 U/L (45-117); Anion Gap 11 (5-15); BUN 30 mg/dL (7-18); BUN/Creat Ratio 25.9 RATIO (10-20); Calcium,Total 9.6 mg/dL (8.5-10.1); Chloride 104 mmol/L (98-107); Creatinine, Serum 1.16 mg/dL (0.55-1.02); EST Glomerular Filtration Rate 48 mL/min (>60); Est Glom Filt Rate - Afr Amer 58 mL/min (>60); Globulin 4.1 g/dL (2.2-4.2); Glucose 125 mg/dL (74-106); Potassium 3.8 mmol/L (3.5-5.1); Sodium Level 138 mmol/L (136-145)
== END | disposition home or self-care (01) ==
LOC: POLAB3 12:44
PROVIDERS: PCP Family Medicine Geriatric Medicine; Visit Provider Family Medicine Geriatric Medicine
DX: I10 Essential (primary) hypertension (principal); E55.9 Vitamin D deficiency, unspecified; N39.0 Urinary tract infection, site not specified
CPT/HCPCS: 36415; 80053; 82306; 84443; 85025; 87077; 87086; 87088; 87186

== ENCOUNTER → 2024-10-21 | Outpatient (CLI) | payer MEDICARE, SELFPAY ==
[2024-10-21 14:18] LABS: Anion Gap 9 (5-15); BUN 36 mg/dL (7-18); BUN/Creat Ratio 36.1 RATIO (10-20); Calcium,Total 9.7 mg/dL (8.5-10.1); Chloride 108 mmol/L (98-107); EST Glomerular Filtration Rate 57 mL/min (>60); Est Glom Filt Rate - Afr Amer 69 mL/min (>60); Glucose 109 mg/dL (74-106); Potassium 3.9 mmol/L (3.5-5.1); Sodium Level 141 mmol/L (136-145)
== END | disposition home or self-care (01) ==
LOC: POLAB3 13:32
PROVIDERS: PCP Family Medicine Geriatric Medicine; Visit Provider Family Medicine Geriatric Medicine
DX: I10 Essential (primary) hypertension (principal)
CPT/HCPCS: 36415; 80048

== ENCOUNTER → 2024-12-06 | Outpatient (CLI) | payer MEDICARE, SELFPAY ==
--- NOTE | 2024-12-06 09:55 | VDLE_ITS ---
Reason For Study Reason For Study: Right leg pain RIGHT LEFT GSV is normal. CFV is compressible, spontaneous, phasic, competent, CFV is compressible, spontaneous, phasic, competent and demonstrates normal augmentation. and demonstrates normal augmentation. FV is compressible, spontaneous, phasic, competent and demonstrates normal augmentation. POP V is compressible, spontaneous, phasic, competent and demonstrates normal augmentation. T/P Trunk is compressible. PTV is compressible. RT PerV is compressible. Procedure This is a venous duplex using B-mode, color flow and spectral Doppler. Exam performed in department. A preliminary report was called and/or faxed to Dr. Falcon. VL/Venous Duplex US, Unilateral Interpretation Summary Deep veins of the right lower extremity are patent and compressible segmentally . There is no evidence of right lower extremity deep vein thrombosis. Valvular competence appears intact within the p roximal deep venous system on the right . The right great saphenous vein appears patent and compressible segmentally. The left common femoral vein is patent and compressible . Ordering Physician: Steve Falcon Chi Referring Physician: Steve Falcon Chi Performed By: Philly Marshall RVT
== END | disposition home or self-care (01) ==
PROVIDERS: PCP Family Medicine Geriatric Medicine; Referring Provider Family Medicine Geriatric Medicine; Visit Provider Family Medicine Geriatric Medicine
DX: M79.604 Pain in right leg (principal)
CPT/HCPCS: 93971

== ENCOUNTER → 2024-12-10 | Outpatient (CLI) | payer MEDICARE, SELFPAY ==
--- NOTE | 2024-12-10 17:02 | CT_ITS ---
PROCEDURE: BRAIN/HEAD WITHOUT CONTRAST 12/10/2024 REASON FOR EXAM: HEADACHE TECHNIQUE: Head CT without intravenous contrast. Coronal and Sagittal reconstruction series were provided. One or more dose reduction techniques were used (e.g., Automated exposure control, adjustment of the mA and/or kV according to patient size, use of iterative reconstruction technique. FINDINGS: Brain: Low density in the periventricular white matter suggests mild chronic small vessel ischemic changes. CSF Spaces: Mild generalized cerebral atrophy Sinuses/Mastoids: Clear at visualized levels Bones: Unremarkable. CT/Brain/Head without Contrast IMPRESSION: CHRONIC CHANGES. NO ACUTE FINDINGS. Reading Location: [id number]
== END | disposition home or self-care (01) ==
PROVIDERS: PCP Family Medicine Geriatric Medicine; Referring Provider Family Medicine Geriatric Medicine; Visit Provider Family Medicine Geriatric Medicine
DX: R51.9 Headache, unspecified (principal)
CPT/HCPCS: 70450

== ENCOUNTER → 2024-12-25 | Outpatient (CLI) | payer MEDICARE, SELFPAY ==
--- NOTE | 2024-12-25 13:45 | RAD_ITS ---
PROCEDURE: CERV SPINE 2 OR 3 VIEWS 12/25/2024 REASON FOR EXAM: SPONDYLOSIS WITHOUT MYELOPATHY OR RADICULOPATHY, CERVICAL REGION TECHNIQUE: 3 views of the cervical spine. FINDINGS: Vertebrae: No acute fracture. disc spaces: Disc space narrowing and osteophyte formation consistent with degenerative disc disease. Alignment: 2 mm of anterolisthesis of C3 on C4. 2 mm of retrolisthesis of C 5 on C6. soft tissues: No prevertebral soft tissue swelling. Other: RAD/Cerv Spine 2 or 3 Views IMPRESSION: MODERATE CERVICAL DEGENERATIVE CHANGES. Disclaimer: Reading Location: [id number]
== END | disposition home or self-care (01) ==
LOC: RAD 13:35
PROVIDERS: PCP Family Medicine Geriatric Medicine; Referring Provider Anesthesiology Pain Medicine; Visit Provider Anesthesiology Pain Medicine
DX: M47.812 Spondylosis without myelopathy or radiculopathy, cervical region (principal)
CPT/HCPCS: 72040